=== PATIENT | female | born 1960 | race Caucasian/White ===

== ENCOUNTER 2022-01-26 20:23 | Emergency (ER) | payer OTHER, BC, SELFPAY ==
[2022-01-26 20:28] VITALS: PULSE 95; RESP 18; TEMP 36.7; O2SAT 98; BMI 36.6
[2022-01-26 20:54] LABS: Appearance Urine Clear (Clear); Bilirubin Urine Negative (Negative); Blood Urine Trace-intact (Negative); Color Urine Yellow (Yellow); Glucose Urine Negative (Negative); Ketones Urine Trace (Negative); Leukocyte Esterase Urine Trace (Negative); Nitrite Urine Negative (Negative); Protein Urine 1+ (Negative)
--- NOTE | 2022-01-26 20:57 | ED_ITS ---
HPI - General Adult General Chief complaint: Weakness Stated complaint: Feeling ill post root canals - possible infection Time Seen by Provider: 01/26/22 20:28 History of Present Illness HPI narrative: Pt is a 61 year old woman who recently had a root canal. Since that time, she has had progressive pain in the right maxillary sinus. Pain and mild swelling have been worsening over the past few days. Pain is dull but severe. No fever or chills. Pt has had no chest pain or shortness of breath. No nausea or vomiting. She is eating and drinking well. The dental pain persists but may be worsening. Related Data Home Medications Medication Instructions Recorded Confirmed albuterol 90 mcg/actuation aerosol mcg inhalation 01/26/22 inhaler amlodipine 10 mg tablet 10 mg PO DAILY 01/26/22 01/26/22 aspirin 81 mg tablet,delayed 81 mg PO DAILY 01/26/22 01/26/22 release (Adult Low Dose Aspirin) beclomethasone dipropionate 80 1 inh inhalation BID 01/26/22 01/26/22 mcg/actuation HFA breath activated aerosol (Qvar RediHaler) citalopram 20 mg tablet (Celexa) 10 mg PO DAILY 01/26/22 01/26/22 lisinopril 20 mg tablet 10 mg PO DAILY 01/26/22 01/26/22 omeprazole 20 mg capsule,delayed 20 mg PO BID 01/26/22 01/26/22 release Allergies Allergy/AdvReac Type Severity Reaction Status Date / Time No Known Drug Allergies Allergy Verified 01/26/22 20:36 Review of Systems Status of ROS: Reports: 10 or more systems reviewed and unremarkable except as noted in History and below [facility] Social History Smoking Status: Former smoker How often do you have a drink containing alcohol: 4 or more times a week How many standard drinks containing alcohol do you have on a typical day: 5 or 6 How often do you have six or more drinks on one occasion: Weekly AUDIT-C Alcohol total score: 9 Non-prescribed substance use: denies use Exam Narrative: Exam Narrative: EXAM GENERAL: Patient appears comfortable and well. EYES: No scleral icterus. ENT: Tympanic membranes and oropharynx normal. Tenderness and mild swelling noted of the right maxillary sinus. THYROID: no thyroid nodules or thyromegaly. LYMPH: No supraclavicular or cervical lymphadenopathy. SKIN: Visible skin seen during exam normal or with benign process only. EXT: No dependent lower extremity pedal edema. HEART: Regular rate and rhythm with no murmurs, rubs, or gallops. LUNGS: Clear to auscultation bilaterally with no crackles or wheezes. ABD: Soft, non tender, non distended. PSYCH: Good eye contact, speech is not pressured. Const: Vital Signs, click to edit/add: Vital Signs - 24 hr 01/26/22 20:28 Temperature 98.0 F Pulse Rate [Right Pulse Oximeter] 95 Respiratory Rate 18 Pulse Oximetry 98 Oxygen Delivery Me thod Room Air Course Course Hospital Course: Pt seen and examined. Vital Signs Vital signs: Initial Vital Signs Temperature 98.0 F 01/26/22 20:28 Temperature Source Oral 01/26/22 20:28 Pulse Rate 95 01/26/22 20:28 Respiratory Rate 18 01/26/22 20:28 Pulse Oximetry 98 01/26/22 20:28 Oxygen Delivery Method 01/26/22 20:28 Vital Signs Temperature 98.0 F 01/26/22 20:28 Pulse Rate 95 01/26/22 20:28 Respiratory Rate 18 01/26/22 20:28 Pulse Oximetry 98 01/26/22 20:28 Oxygen Delivery Method 01/26/22 20:28 Temperature 98.0 F 01/26/22 20:28 Pulse Rate 95 01/26/22 20:28 Respiratory Rate 18 01/26/22 20:28 Pulse Oximetry 98 01/26/22 20:28 Oxygen Delivery Method 01/26/22 20:28 Medical Decision Making [facility] Narrative Medical decision making narrative: Pt presents with right maxillary pain after dental procedure. She has a normal exam, no other significant symptoms and normal vital signs. Pt will be treated with a Z pack and will follow up with PCP prn Differential Diagnosis Differential Diagnosis: Dental infection, Cellulitis, Pharyngitis, Sinusitis Discharge Plan Discharge Clinical Impression: Acute maxillary sinusitis Patient Disposition: Home, Self-Care Condition: Stable Instructions: Sinusitis (ED) Additional Instructions: Z pack as directed Activity Level: No Restrictions Discharge Diet: Regular Stand Alone Forms: [facility] Info Instructions
--- OUTSIDE RECORDS SUMMARY | 2022-01-26 21:08 | XMS_ITS | Clinical Summary ---
:1960 Author Organization [facility] [place] [address] Care Team Providers Name Role Phone Mai Tiwari Primary Care Provider [phone] Robyn Waller RN Unavailable Allergies No known active allergies Medications Medication Sig Dispensed Refills Start Date End Date Status aspirin enteric Take 1 0 09/30/2009 Act indira coated 81 mg tablet by tabletIndications: mouth once Hypertension daily with a meal. multivitamin (MVI) Take 1 0 09/30/2009 Active tablet tablet by mouth once daily. lisinopriL Take 1 180 Tablet 3 09/09/2021 Active (PRINIVIL; ZESTRIL) Tablet (20 20 mg mg) by mouth tabletIndications: 2 times Essential daily. hypertension, benign EPINEPHrine Inhale 1-2 0 09/09/2021 Active (Primatene Mist) Puffs by 0.125 mg/actuation mouth. HFAAIndications: Mild persistent asthma without complication beclomethasone Inhale 1 1 Each 4 09/09/2021 Acti ve dipropionate (Qvar Puff by RediHaler) 80 mouth 2 mcg/actuation HFAb times daily. HFA Doesn't need inhalerIndications: a spacer or Moderate persistent shaking. asthma with acute exacerbation amLODIPine (NORVASC) Take 1 90 Tablet 3 09/09/2021 Active 10 mg Tablet (10 tabletIndications: mg) by mouth Hypertension once daily. citalopram (CELEXA) Take 1 90 Tablet 3 09/09/2021 Active 20 mg Tablet (20 tabletIndications: mg) by mouth Anxiety once daily. omeprazole Take 1 180 capsule. 3 09/09/2021 Activ e (PRILOSEC) 20 mg Capsule (20 Delayed-Release mg) by mouth capsuleIndications: once daily Dysphagia, before a unspecified type meal. albuterol HFA INHALE 2 18 g 2 12/30/2021 Activ e (PRO-AIR; VENTOLIN; PUFFS BY PROVENTIL) 90 MOUTH EVERY mcg/actuation 6 HOURS inhalerIndications: NEEDED Moderate persistent asthma with acute exacerbation gabapentin Take 300 mg 0 01/06/2022 Active (NEURONTIN) 300 mg by mouth. 3 capsule letrozole (FEMARA) Take 2.5 mg 0 01/06/2022 01/07/20 2 Active 2.5 mg tablet by mouth. [address] 1 Drop 5 mL 0 01/14/2022 Active 1% ophthalmic into right (ECONOPRED PLUS, eye four PRED FORTE, times daily. OMNIPRED) suspensionIndication s: Uveitis cyclopentolate Place 1 Drop 0.1 mL 0 01/14/2022 A ctive (CyclogyL) 1 % into right ophthalmic eye two solutionIndications: times daily. Uveitis moxifloxacin INSTILL 1 3 mL 0 01/22/2022 Active (VIGAMOX) 0.5 % DROP IN ophthalmic RIGHT EYE solutionIndications: FOUR TIMES Cornea abrasion, DAILY FOR 7 right, initial DAYS encounter Ventolin HFA 90 INHALE 2 18 g 2 09/13/2021 Dis continued mcg/actuation PUFFS BY 2 inhalerIndications: MOUTH EVERY Moderate persistent 6 HOURS asthma with acute NEEDED exacerbation moxifloxacin Place 1 Drop 2.8 mL 0 01/15/2022 Dis continued (Vigamox) 0.5 % into right 2 ophthalmic eye four solutionIndications: times daily Cornea abrasion, for 7 days. right, initial encounter Active Problems Problem Noted Date Invasive ductal carcinoma of breast 08/15/2020 Overview: x 2 sites in the left breast Mild persistent asthma without complication 10/07/2015 Dysphagia, unspecified(787.20) 01/10/2014 Essential hypertension, benign 12/09/2011 Resolved Problems Problem Noted Date Resolved Date Unspecified asthma(493.90) 12/09/2011 10/07/2015 Encounters Date Type Specialty Care Team Description 01/21/2022 Refill James Brooks, OD Refi ll Request (Moxifloxacin) 01/21/2022 Telephone James Brooks, OD Medi cation Management 01/21/2022 Refill James Brooks, OD Refi ll Request (moxifloxacin ( Vigamox) 0.5 % ophthalmic so lution) 01/15/2022 Office Visit James Brooks, OD Eye Problem (Possible Uveitis OD) 01/14/2022 Office Visit Motley, Dale Storm, Eye Problem (Right eye red DO and a little sw ollen, watery and itch y, painful, blurry. Started Tuesday night.) 01/14/2022 Travel 12/29/2021 Refill Mai Tiwari, Refil l Request (Albuterol PA Hfa) from Last 3 Months Immunizations Name Administration Dates Next Due COVID-19 vaccine ([employer] 30mcg/0.3mL) PF, 1, 05/09/2020 MDV Td (Age >=7 Years) 07/27/1999 Td, Preservative Free (age >= 7 Years) 09/28/2018 Tdap 12/04/2008, 12/05/2007 Family History Medical History Relation Name Comments Hypertension Mother Cancer-breast No Family History Cancer-colon No Family History Cancer-ovarian No Family History Cancer-prostate No Family History Relation Name Status Comments Brother 1 Alive Brother 2 Alive Daughter Alive healthy Father (Age 63) Brain Tumor Mother Alive HTN Sister 1 Alive healthy. Sister 2 Alive Sister 3 Alive Social History Tobacco Use Types Packs/Day Years Used Date Former Smoker Cigarettes 1 10 04/04/1973 - 0 04/04/1988 Smokeless Tobacco: Never Used Tobacco Cessation: Counseling Given: Yes Comments: started age 12. Most was PPD Alcohol Use Standard Drinks/Week Comments Yes 14 (1 standard drink = 0.6 oz pure alcoh ol) Alcohol Habits Answer Date Recorded How often do you have a drink containing 4 or more times a w ramona 06/07/2019 alcohol? How many drinks containing alcohol do you have 1 or 2 06/07/2019 on a typical day when you are drinking? How often do you have six or more drinks on one Weekly 06/07/2019 occasion? Comment: Not asked Sex Assigned at Date Recorded Not on file COVID-19 Exposure Response Date Recorded In the last 10 days, have you been in contact with No / Unsu re 01/14/2022 2:55 PM CDT someone who was confirmed or suspected to have Coronavirus/COVID-19? 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 Respiratory Rate 14 09/08/2020 9:12 AM CDT Oxygen Saturation 97% 09/08/2020 9:12 AM CDT Inhaled Oxygen Concentration - - Weight 91.1 kg (200 lb 14.4 oz) 01/14/2022 3:06 PM CDT Height 157.5 cm (5' 2) 09/09/2021 2:13 PM CDT Body Mass Index 36.75 09/09/2021 2:13 PM CDT Plan of Treatment Health Maintenance Due Date Last Done Comments Pneumococcal series for age 19-64 1964 (1 - PCV) Zoster (shingles) series for age 0306/30/1977 50+ (1 of 2) COVID-19 vaccine series (3 - 06/27/2020 05/30/2020, 021 Pfizer risk series) Colonoscopy through age 75 05/26/2021 05/26/2011, 2, 01/09/2010 (Declined) Influenza for age 50-64 12/03/2021 Mammogram for age 45-75 08/03/2022 08/03/2021 (Verified in Care Everywhere or Patient Record), 08/14/2020, 07/31/2020, Additional history exists BMI (ht and wt on same day) for 09/09/2022 09/09/2021, 0610/2020, age 18+ 08/20/2020, Additional history exists Depression screening for age 12+ 09/09/2022 09/09/2021, 11/2021, 07/24/2020, Additional history exists Lipids for age 45-75 09/09/2026 09/09/2021, 07/24/2020, 09/28/2018, Additional history exists Tetanus booster 09/28/2028 09/28/2018, 12/04/2008, 12/05/2007, Additional history exists Tdap Completed 12/04/2008, 12/05/2007 Hepatitis C screening for age Completed 01/22/2014 18-79 Results Not on filefrom Last 3 Months Insurance Payer Benefit Plan / Subscriber ID Effective Dates Phone Addre ss Type Group MULTI PLAN MULTI PLAN [id number] 2020-Prese [phone] [address] [address] [address] [place] [address] BLUE CROSS BLUE ADVANTAGE [id number] 2020-Presen [address] [address] [place] [facility] [address] UCARE UCARE CHOICES [id number] Effective for [address] [place] [address] [address] 57 [address] (Home) [id number] [phone] [address]NA [place] ([place]) [place] [address] Care Teams Strawhat Blocking Operator Relationship Specialty Start Date End Date Mai Tiwari PA PCP - General 09/30/09 [address] [place] [address] Robyn Waller, RN Nurse Navigator Registered Nurse 08/19/20
--- OUTSIDE RECORDS SUMMARY | 2022-01-26 21:09 | XMS_ITS | Encounter Summary ---
:1960 Author Organization [facility] Address [address] [place] [address] Care Team Providers Name Role Phone Mai Tiwari PA-C Primary Care Provider Reason for Visit Reason Comments BODY ACHES Appt. Needed Encounter Details Date Type Department Care Team Description 11/06/2021 Nurse Triage [facility] Cancer HERMINIO Rashid DY ACHES; Appt. Care at [facility] ZECHARIAH Cotton i Needed [place] [facility] [address] [facility] [address] [place], [place] [id number] [place] [address] [phone] Social History Tobacco Use Types Packs/Day Years Used Date Smoking Tobacco: Former Cigarettes 1 1973 - 1988 Smokeless Tobacco: Never Alcohol Use Standard Drinks/Week Comments Yes 14 (1 standard drink = 0.6 oz pure alcoh ol) 8-14 drinks/week Sex Assigned at Date Recorded Not on file documented as of this encounter Nursing Notes Deisy Fox RN - 11/06/2021 5:07 PM CDT [place] scheduling team, please contact Ayana to assist in scheduling a f/u for an ACP or visit with Dr. Askew the first week of December. Ayana agreed to the 3 week trial off Arimidex. Explained to her about staying on the Lisinopril until if/when that prescriber advises. She agreed to the plan. Tori Arce APRN, CNP - 11/06/2021 4:48 PM CDT Please instruct her to stop Arimidex and see APC (Blanca or Ivett) in [place] in 3 weeks for follow-up to assess whether symptoms are improved off of Arimidex. Lisinopril is not a new medication so less likely the cause of her cough; however, I recommend she call PCP regarding that symptom. Thanks- Deisy Fox RN - 11/06/2021 4:37 PM CDT Patient under the care of Dr. Askew for dx breast cancer. Arimidex started October 01, 2021 Ayana called this afternoon to report a gradual but persistent all over aching of her body muscles and some of her joints. She mentioned her knee's as being specifically bothersome. Also, she noted a persistent dry cough. She happens to also be on Lisinopril for blood pressure control. Dr. Askew is out of clinic at this time. Ayana is not scheduled for follow up until early January (9 weeks from now). Office call, will you please advise? Thank you. documented in this encounter Plan of Treatment Upcoming Encounters Date Type Specialty Care Team Description 02/11/2022 Phone Visit Oncology Radha Rashid MBBS [address] [facility], [place] [id number] (Wo rk) 05/20/2022 Appointment Oncology Radha Rashid MBBS [address] [facility] [phone] (Wo rk) 05/20/2022 Appointment Chemo Therapy/Infusion Services documented as of this encounter Visit Diagnoses Not on filedocumented in this encounter Care Teams Interior Design Coordinator Relationship Specialty Start Date End Date Mai Tiwari PA-C PCP - General Physician Foundry Supervisor 09/23/20 [address] [place] [address] [place] [address] documented as of this encounter
--- OUTSIDE RECORDS SUMMARY | 2022-01-26 21:09 | XMS_ITS | Encounter Summary ---
:1960 Author Organization [facility] Address [address] [place] [address] Care Team Providers Name Role Phone Unavailable Primary Care Provider Unavailable Reason for Visit Auth/Cert Specialty Diagnoses / Procedures Referred By Contact Refer red To Contact Diagnoses Malignant neoplasm of overlapping sites of both breasts in female, estrogen receptor positive (HRC) Procedures left breast seed localized lumpectomy with sentinel lymph node biopsy Referral ID Status Reason Start Date Expiration Date Visits Requ ested Visits Authorized [id number] 1 1 Encounter Details Date Type Department Care Team Description 09/12/2020 Anesthesia Event Baptism Operating Syl Malloy MD [address] [place] [address] Room Vasu Brand MD [address] [place] [address] [facility]. [place], [place] [id number] Anesthesia Record Procedure Summary Procedure Name Responsible Anesthesia Start Anesthesia Stop Anesthesiologist Time Time left breast 2 seed Corrine Malloy MD 09/12/20 1150 09/12/20 1333 localized lumpectomy with sentinel lymph node biopsy (Left) Events Date Time Event Comment 09/12/2020 1127 1150 An Start 1150 Quick Note Anesthesia start time denotes sedation started by PROPELLER MECHANIC currently o n case; patient continuously monitored to O.R . By PROPELLER MECHANIC 1153 An Start Data 1158 MD/ Present 1201 An Induction 1203 An Intubation 1204 MD/DO Present 1248 MD/DO Present 1325 An Extubation Purposeful movem ent with spontaneous respirations and adequate air exchange. Suctioned and ETT removed. Transfe rred with oxygen to recovery. 1327 MD/DO Present 1328 an stop data 1333 Care Handoff Note I discussed wi th the receiving nurse and we: 1) Identified the p atient, contreras family member(s) or patient surrogat e 2) Identified the responsible practitioner 3) Reviewed the pertinent medical history 4) Discu ssed the surgical/procedure course 5) Reviewed intr a-op anesthesia management and issues during an esthesia 6) Set expectations for the post-procedu re period 7) Allowed opportunity for questions an d acknowledgement of understanding of report Electr onically signed by CLARENCE Boles RN, PROPELLER MECHANIC 1333 An Stop Care transferred . Name Total midazolam injection 2 mg/2 mL (VERSED) 2 mg fentaNYL injection (SUBLIMAZE) 250 mcg HYDROmorphone injection 1 mg/mL (DILAUDID) 0.5 mg lidocaine 1% PF injection (XYLOCAINE) 100 mg propofol 10 mg/mL IV (DIPRIVAN) 1,293.6 mg succinylcholine injection (QUELICIN) 100 mg rocuronium injection (ZEMURON) 40 mg ondansetron injection (ZOFRAN) 4 mg dexamethasone 4 mg/mL injection (DECADRON) 4 mg ceFAZolin (ANCEF) 1 g in dextrose 50 ml IVPB 1 g lactated ringers infusion 900 mL Agents Name O2 Air Sevoflurane () Identified Agent Name Blood No blood administrations on file. Lines, Drains, and Airways Type Details Placement Removal Peripheral IV Placement Date: 09/12/20 1012 by 09/12/20 1552 b y 09/12/20; Placement Nelida Saurez Taylor, Curtis J, Time: 1012; COLT RN Pre-existing: No; Inserted by?: RN; Size (Gauge): 20 G; Orientation: Anterior, Right; Site Prep: Chlorhexidine, Alcohol; Local Anesthetic: Lidocaine 1%; Insertion attempts: 1; Blood draw with insertion?: no; Patient Tolerance: Tolerated well; Removal Date: 09/12/20; Removal Time: 1552 ETT Placement Date: 09/12/20 1203 by 09/12/20 1325 b y 09/12/20; Placement Jc Wheeler Schoenb erger, Brian Time: 1203; Placed By: LAZARO SAMUELS F, LAZARO SAMUELS PROPELLER MECHANIC; Induction Type: Pre-O2, IV, Cricoid Pressure; Masking: Easy; ETT Type: ETT; Orientation: Left; Size (mm): 7.0; Depth Secured (cm): 21 cm; Cuffed: Cuffed; Intubation Method: Video laryngoscopy; Cormack_Lehane Glottic Grade: Grade 1; Glottic View: Cords Open, Cords Clear; Blade: Glidescope; Blade Size: 3; Insertion attempts: 1; Difficulty: Atraumatic; Adjunct Equipment: Stylet; Placement Verification: BBSE, Positive EtCO2, capnometry, auscultation; Teeth and Lips Unchanged: Unchanged; Removal Date: 09/12/20; Removal Time: 1325 Incision/Surgical Site 09/12/20; 1243; #1; 09/12/20 1243 by 09/02 04/24 1552 by No; Breast; Left; Mai Hansen, Renzo Bustos, 09/12/20; 1552 RN Incision/Surgical Site 09/12/20; 1243; #2; 09/12/20 1243 by 09/02 04/24 1552 by No; Axilla; Left; Mai Hansen, Renzo Bustos, 09/12/20; 1552 RN documented in this encounter Social History Tobacco Use Types Packs/Day Years Used Date Smoking Tobacco: Former Cigarettes 1 1973 - 1988 Alcohol Use Standard Drinks/Week Comments Yes 14 (1 standard drink = 0.6 oz pure alcoh ol) 8-14 drinks/week Sex Assigned at Date Recorded Not on file documented as of this encounter Miscellaneous Notes Anesthesia Postprocedure Evaluation - Corrine Malloy MD - 09/12/2020 2:19 PM CDT [facility] Anesthesia Post-op Note Patient: Ayana Donnelly Post-Op Diagnosis: Malignant neoplasm of overlapping sites of both breasts in female, estrogen receptor positive (hrc) Procedure Performed: Procedure(s): Left - left breast 2 seed localized lumpectomy with sentinel lymph node biopsy - Wound Class: 1 CLEAN Anesthesia Type: General Post-op vital signs: Vitals Value Taken Time BP 139/79 09/12/20 1417 Temp 36.5 ??C (97.7 ??F) 09/12/20 1417 Pulse 79 09/12/20 1418 Resp 18 09/12/20 1417 SpO2 92 % 09/12/20 1418 Vitals shown include unvalidated device data. Pain Score: Presence Of Pain: denies Preferred Pain Scale: word (verbal rating pain scale) Pain Rating (0-10): Rest: 0 Pain Rating (0-10): Activity: 0 Post-op assessment: No anesthesia complication. Patient location: PACU Airway Status: Patent Cardiovascular function: Satisfactory Hydration status: Satisfactory PONV: None Level of Consciousness: Awake Fully Participates Postop Assessment: Patient tolerated procedure well. Electronically signed by: Corrine aMlloy MD 09/12/2020 2:19 PM Anesthesia Preprocedure Evaluation - Vasu Brand MD - 09/12/2020 10:51 AM CDT [facility] Anesthesia Pre-op Evaluation Procedure: Procedure(s): Left - left breast seed localized lumpectomy with sentinel lymph node biopsy HPI: 60 y.o. old female with Malignant neoplasm of overlapping sites of both breasts in female, estrogen receptor positive (hrc) NPO Status: Last Fluid Intake Time: 0700 Last Fluid Intake Date: 09/12/20 Last Food Intake Date: 09/11/20 Last Food Intake Time: 1999 No Known Allergies Past Medical History: Diagnosis Date ??? Anxiety (HRC) ??? Asthma ??? Hypertension (HRC) ??? Malignant neoplasm of overlapping sites of breast in female, estrogen receptor positive (HRC) 08/20/2020 Patient Active Problem List Diagnosis ??? Malignant neoplasm of overlapping sites of breast in female, estrogen receptor positive (HRC) No past surgical history on file. Outpatient Medications as of 09/12/2020 Medication Sig ??? ALBUterol sulfate HFA 108 (90 Base) MCG/ACT inhaler Inhale 2 Puffs. ??? amLODIPine (NORVASC) 10 MG tablet ??? beclomethasone (QVAR REDIHALER) 80 MCG/ACT HFA inhaler Inhale 1 Puff. ??? citalopram (CELEXA) 20 MG tablet ??? EPINEPHrine (PRIMATENE MIST IN) ??? EPINEPHrine (PRIMATENE MIST) 0.125 MG/ACT AERO 1-2 Puffs as needed. Primotene mist inhaler OTC ??? lisinopril (ZESTRIL) 20 MG tablet Facility-Administered Medications as of 09/12/2020 Medication Dose Route Frequency ??? [COMPLETED] 0.9% sodium chloride bolus 100 mL 100 mL Intravenous Once ??? ceFAZolin (ANCEF) 1 g in dextrose 50 ml IVPB 1 g Intravenous Once ??? fentaNYL (SUBLIMAZE) injection 25-50 mcg 25-50 mcg Intravenous Q5MIN PRN ??? fentaNYL (SUBLIMAZE) injection 25-50 mcg 25-50 mcg Intravenous Q5MIN PRN ??? [COMPLETED] gadobutrol (GADAVIST) 1 MMOL/ML injection 9 mL 9 mL Intravenous Once ??? lactated ringers infusion 25 mL/hr Intravenous Continuous ??? [COMPLETED] lidocaine PF (XYLOCAINE) 1 % injection 0.1-0.3 mL 0.1-0.3 mL Intradermal Once And ??? lidocaine PF (XYLOCAINE) 1 % injection 0.1-0.3 mL 0.1-0.3 mL Intradermal PRN ??? midazolam (VERSED) injection 1-2 mg 1-2 mg Intravenous Q5MIN PRN ??? ondansetron (ZOFRAN) injection 4 mg 4 mg Intravenous Q4H PRN ??? [COMPLETED] sodium chloride 0.9% injection 20 mL 20 mL Intravenous Once Labs: No results found for: SODIUM, K, CHLORIDE, CO2, BUN, CREATININE, GLUCOSE No results found for: WBC, HGB, HCT, PLTS No results found for: INR Blood Bank: No results found for: ABO, ABSCR EKG: No results found for this or any previous visit. Physical Exam: BP (!) 142/75 Pulse 80 Temp (!) 36 ??C (96.8 ??F) (Temporal Artery) Resp 18 Wt 88 kg (194 lb) SpO2 95% BMI 36.66 kg/m?? Assessment/Plan: Review of Systems Patient has GERD. (oropharyngeal) GERD controlled with medication. Patient is not a current smoker. Patient is a former smoker. The patient reports alcohol use. Patient denies any recent URI. History of PONV: No. History of motion sickness: No. Patient denies any personal or family history of anesthesia complications (PONV). Exam Mental Status: Alert and oriented. Mallampati score: III (Three). Mouth opening: a bit small. Thyromental Distance: > 3 finger breadths and Normal Neck Extension: Full Neck Circumference > 40 cm?: No Current airway assessment:Possibly abnormal Cardiac Exam: Regular rate and rhythm. Respiratory Exam: Breath sounds clear to auscultation Assessment ASA Status: 2 . Plan Anesthesia type: General and ETT Induction: Maintenance: Postoperative pain management (PONV): Plan for postoperative opioid use PONV Risk Score Peds:0 PONV Risk Score Adult: 3 PONV Prophylaxis (planned): Ondansetron and Decadron Anesthetic plan, risks, benefits and alternatives discussed with: Patient. H&P Reviewed and Patient examined, no change observed IV access Antibiotics per surgery Electronically signed by: Vasu Brand MD 09/12/2020 10:51 AM documented in this encounter Plan of Treatment Upcoming Encounters Date Type Specialty Care Team Description 02/11/2022 Phone Visit Oncology Radha Rashid MBBS [address] [facility] [address] ([place]say marcano) 05/20/2022 Appointment Oncology Radha Rashid MBBS [address] [facility], [place] [address] (Lindsay marcano) 05/20/2022 Appointment Chemo Therapy/Infusion Services documented as of this encounter Visit Diagnoses Not on filedocumented in this encounter Administered Medications Inactive Administered Medications - up to 3 most recent administrations Medication Order MAR Action Action Date Dose Rate Site ceFAZolin (ANCEF) 1 g in dextrose Given 09/12/2020 12:15 PM CDT 1 g 50 ml IVPB 1 g, Intravenous, Administer over 30 Minutes, ONCE, On Tue09/12/20 at 0945, For 1 dose, Infuse within 60 minutes prior to incision. Re-dose 1 gram IV every 4 hours after initial dose until incision closed. Re-dose if more than 1.5L of blood loss. Pharmacy may adjust for renal insufficiency., Pre-op dexamethasone (DECADRON) injection Given 09/12/2020 12:01 PM CDT 4 mg Intravenous, Starting on Tue09/12/20 at 1201, Until Tue09/12/20 at 1333 fentaNYL (SUBLIMAZE) injection Given 09/12/2020 12:29 PM CDT 100 mcg Intravenous, Starting on Tue09/12/20 at 1201, Until Tue09/12/20 at 1333 Given 09/12/2020 12:10 PM CDT 50 mcg Given 09/12/2020 12:01 PM CDT 100 mcg HYDROmorphone (DILAUDID) injection Given 09/12/2020 12:45 PM CDT 0.5 mg Intravenous, Starting on Tue09/12/20 at 1245, Until Tue09/12/20 at 1333 lidocaine PF (XYLOCAINE) 1 % injection Given 09/12/2020 12:01 PM CDT 100 mg Intravenous, Starting on Tue09/12/20 at 1201 midazolam (VERSED) injection Given 09/12/2020 11:50 AM CDT 2 mg Intravenous, Starting on Tue09/12/20 at 1150, Until Tue09/12/20 at 1333 ondansetron (ZOFRAN) injection Given 09/12/2020 12:01 PM CDT 4 mg Intravenous, Starting on Tue09/12/20 at 1201, Until Tue09/12/20 at 1333 propofol (DIPRIVAN) 10 mg/mL Rate/Dose 09/12/2020 1:13 125 mcg/kg/mi n 66 mL/hr injection Change PM CDT Intravenous, Starting on Tue09/12/20 at 1201, Until Tue09/12/20 at 1333 Rate/Dose Change 09/12/2020 1:05 PM CDT 175 mcg/kg/min 92.4 mL/hr Started 09/12/2020 12:01 PM CDT 200 mcg/kg/min 105.6 mL/hr rocuronium (ZEMURON) injection Given 09/12/2020 12:10 PM CDT 40 mg Intravenous, Starting on Tue09/12/20 at 1210, Until Tue09/12/20 at 1333 succinylcholine (QUELICIN) injection Given 09/12/2020 12:01 PM CDT 100 mg Intravenous, Starting on Tue09/12/20 at 1201, Until Tue09/12/20 at 1333 documented in this encounter
--- OUTSIDE RECORDS SUMMARY | 2022-01-26 21:09 | XMS_ITS | Encounter Summary ---
:1960 Author Organization [facility] Address [address] [address] Care Team Providers Name Role Phone Mai Tiwari PA-C Primary Care Provider Reason for Visit Reason Comments Scheduling Question Encounter Details Date Type Department Care Team Description 04/09/2021 Telephone [facility] Cancer Naun Rashid heduling Question Care at Rachel Cal Culp i, ZECHARIAH Crandall Oncology [address] [place] [id number] [place], [place] [id number] [place] [address] [phone] (Wo rk) Social History Tobacco Use Types Packs/Day Years Used Date Smoking Tobacco: Former Cigarettes 1 1973 - 1988 Smokeless Tobacco: Never Alcohol Use Standard Drinks/Week Comments Yes 14 (1 standard drink = 0.6 oz pure alcoh ol) 8-14 drinks/week Sex Assigned at Date Recorded Not on file documented as of this encounter Nursing Notes Silvia Cali, RN - 04/09/2021 3:51 PM CST Pt last had a phone visit on 12/10/20. Pt followed for T1cN0 multifocal ER/OH+ HER-2 neg ductal cancer. Pt last had a mammo on 09/12/20. Per scheduling sheet from 12/10/20 pt was supposed to be scheduled for a bone density in 1-2 months and follow up with Dr. Askew in 3-4 months. Please call pt to schedule this. Dr. Askew she is wondering when you next want her to get a mammo. Please advise. Thanks!! UNDERWRITER documented in this encounter Plan of Treatment Upcoming Encounters Date Type Specialty Care Team Description 02/11/2022 Phone Visit Oncology Radha Rashid MBBS [address] [facility] [address] (Wo rk) 05/20/2022 Appointment Oncology Radha Rashid MBBS [address] [facility] [address] (Wo rk) 05/20/2022 Appointment Chemo Therapy/Infusion Services documented as of this encounter Visit Diagnoses Not on filedocumented in this encounter Care Teams Senior Manager Creative Services Relationship Specialty Start Date End Date Mai Tiwari PA-C PCP - General Physician Electric Shovel Operator 09/23/[address] [address] documented as of this encounter
--- OUTSIDE RECORDS SUMMARY | 2022-01-26 21:09 | XMS_ITS | Encounter Summary ---
:1960 Author Organization [facility] Address [address] [place] [address] Care Team Providers Name Role Phone Mai Tiwari PA-C Primary Care Provider Encounter Details Date Type Department Care Team Description 04/30/2021 Orders Only HIM DEPARTMENT Provider, Kelby hendrix MD Interface provid er interface provider, TAYLOR [address] Social History Tobacco Use Types Packs/Day Years Used Date Smoking Tobacco: Former Cigarettes 1 1973 - 1988 Smokeless Tobacco: Never Alcohol Use Standard Drinks/Week Comments Yes 14 (1 standard drink = 0.6 oz pure alcoh ol) 8-14 drinks/week Sex Assigned at Date Recorded Not on file documented as of this encounter Plan of Treatment Upcoming Encounters Date Type Specialty Care Team Description 02/11/2022 Phone Visit Oncology Radha Rashid MBBS [address] [facility] [address] (Wo rk) 05/20/2022 Appointment Oncology Radha Rashid MBBS [address] [facility], [place] [id number] (Wo rk) 05/20/2022 Appointment Chemo Therapy/Infusion Services documented as of this encounter Procedures Procedure Name Priority Date/Time Associated Diagnosis Comme nts GENETIC TESTING 04/30/2021 Results for this (SCANNED) procedure are i n the results section . documented in this encounter Results GENETIC TESTING (SCANNED) (04/30/2021) Narrative This result has an attachment that is no t available. Interface Provider MD DUMMY/OTHER/AR documented in this encounter Visit Diagnoses Not on filedocumented in this encounter Care Teams Supervising Nurse Relationship Specialty Start Date End Date Mai Tiwari PA-C PCP - General Physician Silver Solution Mixer 09/23/[address] [facility] [address] [place] [address] documented as of this encounter
--- OUTSIDE RECORDS SUMMARY | 2022-01-26 21:09 | XMS_ITS | Encounter Summary ---
:1960 Author Organization [facility] Address [address] [place] [id number] Care Team Providers Name Role Phone Mai Tiwrai PA-C Primary Care Provider Reason for Visit Auth/Cert Specialty Diagnoses / Procedures Referred By Contact Refer red To Contact Diagnoses Stage 1 breast cancer, ER+, left ([facility]) Procedures RE-EXCISION MARGINS BREAST LUMPECTOMY UNILATERAL Referral ID Status Reason Start Date Expiration Date Visits Requ ested Visits Authorized [id number] 1 1 Encounter Details Date Type Department Care Team Description 09/23/2020 Hospital Encounter [facility] Marcie Thorne , Stage 1 breast Room MD cancer, ER+, left [address] [facility] ([facility]) [facility] [id number] [phone] Social History Tobacco Use Types Packs/Day Years Used Date Smoking Tobacco: Former Cigarettes 1 1973 - 1988 Alcohol Use Standard Drinks/Week Comments Yes 14 (1 standard drink = 0.6 oz pure alcoh ol) 8-14 drinks/week Sex Assigned at Date Recorded Not on file documented as of this encounter Last Filed Vital Signs Vital Sign Reading Time Taken Comments Blood Pressure 126/72 09/23/2020 5:30 PM CDT Pulse 74 09/23/2020 5:45 PM CDT Temperature 36 ??C (96.8 ??F) 09/23/2020 4:50 PM CDT Respiratory Rate 14 09/23/2020 5:45 PM CDT Oxygen Saturation 94% 09/23/2020 5:45 PM CDT Inhaled Oxygen Concentration - - Weight 88 kg (194 lb) 09/23/2020 1:30 PM CDT Height 154.9 cm (5' 1) 09/23/2020 1:30 PM CDT Body Mass Index 36.66 09/23/2020 1:30 PM CDT documented in this encounter Discharge Instructions Discharge InstructionsMartina Grajeda RN - 09/23/2020 5:30 PM CDT Anesthesia Instructions for Discharge 1. When leaving the facility, you must be accompanied by a responsible adult. 2. You must have a responsible adult with you for at least 8 hours after surgery. 3. During the next 24 hours after surgery, we would like you to follow these instructions: a. Do not Drive. b. Do not drink alcoholic beverages. c. Be aware of dizziness-do not use power tools. d. Eat light today; liquids may be better tolerated. e. Discuss any problems you may have with your physician. documented in this encounter Medications at Time of Discharge Medication Sig Dispensed Refills Start Date End Date ALBUterol sulfate HFA 108 Inhale 2 Puffs. 0 07/24 (90 Base) MCG/ACT inhaler amLODIPine (NORVASC) 10 0 07/24/2020 MG tablet aspirin 81 MG chewable Chew and swallow 81 0 tablet mg by mouth daily. beclomethasone (QVAR Inhale 1 Puff. 0 07/24/2020 REDIHALER) 80 MCG/ACT HFA inhaler citalopram (CELEXA) 20 MG 0 07/24/2020 tablet EPINEPHrine (PRIMATENE 0 MIST IN) EPINEPHrine (PRIMATENE 1-2 Puffs as needed. 0 MIST) 0.125 MG/ACT AERO Primotene mist inhaler OTC lisinopril (ZESTRIL) 20 0 07/24/2020 MG tablet acetaminophen (TYLENOL) Take 2 Tablets by 0 09/1209/26/2020 500 MG tablet mouth every 6 hours as needed for up to 14 days. ibuprofen (MOTRIN) 200 MG Take 2 Tablets by 0 02/202109/26/2020 tablet mouth every 6 hours as needed for up to 14 days. documented as of this encounter Procedure Notes Alysha Lozada PA-C - 09/23/2020 4:59 PM CDT [facility] Brief Operative Progress Note Surgery Date: 09/23/2020 Surgeon(s) and Role: * Marcie Thorne MD - Primary * Alysha Lozada PA-C - Assisting Pre-op Diagnosis: * Stage 1 breast cancer, ER+, left ([facility]) [C50.912, Z17.0] Post-op Diagnosis: * Stage 1 breast cancer, ER+, left ([facility]) [C50.912, Z17.0] Procedure(s) (LRB): RE-EXCISION MARGINS BREAST LUMPECTOMY UNILATERAL (Left) EBL: 20 Specimens: ID Type Source Tests Collected by Time Destination 1 : Re-Excision anterior and medial margins. Double stitch Anterior Single stitch Medial Tissue Breast, left SURGICAL PATHOLOGY Marcie Thorne MD 09/23/2020 1610 Complications: none Findings: Healthy lumpectomy cavity with small seroma present Alysha Lozada PA-C Marcie Thorne MD - 09/23/2020 12:00 AM CDT NAME: [facility]: [id number] OPERATIVE REPORT DATE OF SURGERY: 09/23/2020 : 1960 SURGEON: MARCIE THORNE MD PREOPERATIVE DIAGNOSIS: Left breast cancer. POSTOPERATIVE DIAGNOSIS: Left breast cancer. PROCEDURE: Left breast re-excision lumpectomy margins. ART GILDER: Alysha Lozada PA-C. A qualified surgical services manager was not available to assist.ODESSA Lozada was needed to provide operative exposure, to assist in achieving hemostasis and to suture. ANESTHESIA: Local MAC. INDICATION FOR OPERATION: Patient is a 60-year-old woman who recently underwent left breast lumpectomy and sentinel lymph node biopsy. Patient had a positive margin anteriorly and a close margin medially. Re-excision of these margins was recommended. The patient desired the surgery and informed consent was obtained. OPERATIVE PROCEDURE: The patient was positioned supine with arms abducted and the left breast was sterilely prepped and draped. 1% lidocaine mixed with 0.25% Marcaine with epinephrine was used for local anesthesia. The healing incision in the lower outer breast was opened sharply. The lumpectomy cavity was entered and the seroma was aspirated out. Old suture material was removed. Using electrocautery, a 1 cm thick slice of additional breast tissue was excised from the anterior and medial aspect of the lumpectomy cavity. The specimen was freed and oriented for pathology. Specimen was sent to the lab. Hemostasis was assured. The wound was irrigated and dried. The wound was closed with interrupted 3-0 Vicryl in the deep dermis, running 4-0 Monocryl subcuticular stitch for skin. Steri-Strips and dressing were applied. The patient tolerated the procedure well. FINDINGS: Additional breast tissue from the anterior and medial lumpectomy margins was normal grossly, pathology is pending. MARCIE THORNE MD [facility]/S /[id number] documented in this encounter OR Notes H&P - Marcie Thorne MD - 09/23/2020 3:22 PM CDT H & P update No new changes to health since 09/09/20 H&P. Underwent recent lumpectomy and sentinel lymph node biopsy. Today ready to proceed with re-excision lumpectomy margins. documented in this encounter Plan of Treatment Upcoming Encounters Date Type Specialty Care Team Description 02/11/2022 Phone Visit Oncology Radha Rashid MBBS [address] [facility] [id number] (Wo rk) 05/20/2022 Appointment Oncology Radha Rashid MBBS [address] [facility] [place] [id number] (Wo rk) 05/20/2022 Appointment Chemo Therapy/Infusion Services documented as of this encounter Procedures Procedure Name Priority Date/Time Associated Comments Diagnosis SURGICAL PATHOLOGY Routine 09/23/2020 4:10 PM Stage 1 breast R esults for this CDT cancer, ER+, left procedure are in ([facility]) the results section. RE-EXCISION MARGINS 09/23/2020 3:21 PM Stage 1 breast BREAST LUMPECTOMY CDT cancer, ER+, left ([facility]) documented in this encounter Results Surgical Path (09/23/2020 4:10 PM CDT) Component Value Ref Test Analysis Performed At [facility] gist Range Method Time Signature Case Report Surgical Pathology ?Case: [id number] ? 09/26/2020 [facility] Authorizing Provider: ??Marcie Duarte MD ?Collected: ? 09/23/2020 1610 ? 1:50 PM LABO RATORY Ordering Location: ? [facility] ?? Received: ?09/23/2020 1704 ? CDT Pathologist: ? Rai Stafford MD ? Specimen: ?Breast, left, Re-Excision anterior and medial margins. Double stitch Anterior Single ? stitch Me dial ? FINAL A. 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 Elvi Thorne via telephone on 09/26/20. 1:50 PM Clinical Stage 1 breast 09/26/2020 [facility] Information cancer, ER+, left 1:50 PM LABORATORY ([facility]) CDT Microscopic Microscopic 09/26/2020 [facility] Description examination is 1:50 PM LABORATORY performed. CDT Gross A: 09/26/2020 [facility] Description The specimen is received in formalin and labeled with the patient's name and Breast, left, Re-Excision anterior and medial margins. Double stitch Anterior Single stitch Medial. The specimen consists o 1:50 PM LABORATORY f an 11 g, 4.6 x 4.3 x 1.4 c m roughly cup-shaped disrupted portion of fibrofatty tissue. There is a double suture that designates anterior and a single suture that designates medial. The anterior margin CDT is inked red and the medial margin is inked green. The opposite surface (not a margin) is inked black. The sutures are removed. The anterior aspect is disrupted. The specimen is serially sectioned beginning at the medial aspect. The cut surfaces consist of predominantly smiley-yellow lobulated fat and a min imal amount of soft focally dense white fibrous tissue. The old lumpectomy site is firm. However, no obvious tumor is appreciated grossly. [place] [employer] sections (approximately 50% the specimen is sampled and submitted in 7 cassettes. The specimen is placed in formalin at 4:12 PM, 09/23/2020 DV The remainder of the specime n is entirely submitted in cassettes 8-14 (cassettes 8 and 14 include perpendicular sections of each end) DV Embedded 09/26/2020 [facility] Images 1:50 PM LABORATORY CDT Specimen Anatomical Collection Method Collection Time Receive d Time (Source) Location / / Volume Laterality Tissue BREAST STRUCTURE / 09/23/2020 4:10 PM 5:04 Unknown CDT PM CDT Marcie Thorne MD LAB PATHOLOGY Performing Organization Address City/State/ZIP Code Phon e Number [facility] [address] [place] [address] documented in this encounter Visit Diagnoses Diagnosis Stage 1 breast cancer, ER+, left ([facility]) - Primary documented in this encounter Admitting Diagnoses Diagnosis Stage 1 breast cancer, ER+, left ([facility]) documented in this encounter Administered Medications Inactive Administered Medications - up to 3 most recent administrations Medication Order MAR Action Action Date Dose Rate Site bupivacaine-epinephrine Given 09/23/2020 4:19 PM 30 mL Left Breast Fold (SENSORCAINE) 0.25% CDT -1:138457 15 mL, lidocaine (XYLOCAINE) 1 % 15 mL 30 mL 1:1 injection ONCE PRN, Starting on Tue09/23/20 at 1619, Intra-op fentaNYL (SUBLIMAZE) injection 25-50 mcg 25-50 mcg, Intravenous, [id number], Other, Moderate to Severe Pain (pain score 5 and above) in the immediate postop period when faster on-s et, short acting agent is desired., Starting on Tue09/23/20 at 133 2, Until Tue09/23/20 at 2108, Administer every 5 minutes as needed, to a maximum cumulative dose of 250 mcg. For patients with a regional, spinal, or local anesth etic, may give for anticipated pain as the anesthetic wears off., PACU/Recovery fentaNYL (SUBLIMAZE) injection 25-50 mcg 25-50 mcg, Intravenous, [id number], Pain, Procedure, Starting on Tue09/23/20 at 1332, Until Tue09/23/20 at 2108, For 2 doses, As directed by anesthesiologist, Pre-op fentaNYL (SUBLIMAZE) injection 25-50 mcg 25-50 mcg, Intravenous, [id number], Pain, Procedure, Starting on Tue09/23/20 at 1411, Until Tue09/23/20 at 2108, For 2 doses, As directed by anesthesiologist, Pre-op fentaNYL (SUBLIMAZE) injection 25-50 mcg 25-50 mcg, Intravenous, [id number], Other, Moderate to Severe Pain (pain score 5 and above) in the immediate postop period when faster on-s et, short acting agent is desired., Starting on Tue09/23/20 at 141 1, Until Tue09/23/20 at 210, Administer every 5 minutes as needed, to a maximum cumulative dose of 250 mcg. For patients with a regional, spinal, or local anesth etic, may give for anticipated pain as the anesthetic wears off., PACU/Recovery hydrALAZINE (APRESOLINE) injection 5 mg 5 mg, Intravenous, Q10MIN PRN, Other, Hi gh Blood Pressure, MAX 4 doses, hold for HR <50, Starting on Tue09/23/20 at 1411, Un til Tue09/23/20 at 210, For 4 doses, Call Anesthesiologist before administration. Give as direct ed by Anesthesiologist., PACU/Recovery HYDROmorphone (DILAUDID) injection 0.2-0 .3 mg 0.2-0.3 mg, Intravenous, Q10MIN PRN, Pain, 0.2 mg IV f or Mild to Moderate pain (pain score 1-5), 0.3 mg IV for Moderate to Severe pain (pain score 6 and above) in the immediate postop period when longer acting agent is desired., Starting on Tue09/23/20 at 1411, Until Tue09/23/20 at 2108, Maximum cu mulative dose is 2 mg in PACU, call Anesthesiologist if additional dosage neede d. For patients with a regional, spinal, or local anesthetic, may give for an ticipated pain as the anesthetic wears off., PACU/Recovery lactated ringers infusion Rate/Dose Change 09/23/2020 4:49 PM CDT 600 mL/hr 25 mL/hr, Intravenous, CONTINUOUS, Starting on Tue09/23/20 at 1330, Administer on all preop surgery patients, ages 12 and older, unless specified differently in the Protocol for Preop Initiation of IV fluids Order Set., Pre-op Started 09/23/2020 1:47 PM CDT 25 mL/hr 25 mL/hr lidocaine PF (XYLOCAINE) 1 % injection Given 09/23/2020 1:47 PM CDT 0.3 mL 0.1-0.3 mL 0.1-0.3 mL, Intradermal, ONCE, On Tue09/23/20 at 1330, For 1 dose, Lidocaine to be used for IV starts unless patient refuses., Pre-op lidocaine PF (XYLOCAINE) 1 % injection 0 .1-0.3 mL 0.1-0.3 mL, Intradermal, PRN, Other, for additional IV starts, Starting on Tue09/23/20 at 1259, Pre-op meperidine (DEMEROL) injection 12.5 mg 12.5 mg, Intravenous, [id number], Shiverin g, Starting on Tue09/23/20 at 1332, Until Tue09/23/20 at 2108, For 2 doses, Maximu m cumulative dose is 25 mg. Do not give to patients receiving MAO inhibitors (e.g. phenelzine (NA RDIL), tranylcypromine (PARNATE), selegiline (ELDEPRYL))., PACU/Recovery midazolam (VERSED) injection 1-2 mg 1-2 mg, Intravenous, [id number], Sedation, Anxiety, Proc edure, Starting on Tue09/23/20 at 1332, Until Tue09/23/20 at 2108, As directe d by anesthesiologist MAX Dose 2mg, Pre-op midazolam (VERSED) injection 1-2 mg 1-2 mg, Intravenous, [id number], Sedation, Anxiety, Proc edure, Starting on Tue09/23/20 at 1411, Until Tue09/23/20 at 2108, As directe d by anesthesiologist MAX Dose 2mg, Pre-op naloxone (NARCAN) injection 0.08 mg 0.08 mg, Intravenous, PRN, Other, For respiratory rate less than 8/minute or patient difficult to arouse, Starting on Tue09/23/20 at 1332, Until Tue09/23/20 at 2108, May repeat every 3 minutes or until patient is r esponsive to physical stimulation and is able to take deep ting aths. Maximum cumulative dose is 0.4 mg (1 mL). Continue to observe; if no response after administering total dose of 0.4 mg notify anesthesiologist STAT., PACU/Recovery naloxone (NARCAN) injection 0.08 mg 0.08 mg, Intravenous, PRN, Other, For respiratory rate less than 8/minute or patient difficult to arouse, Starting on Tue09/23/20 at 1411, Until Tue09/23/20 at 2108, May repeat every 3 minutes or until patient is r esponsive to physical stimulation and is able to take deep ting aths. Maximum cumulative dose is 0.4 mg (1 mL). Continue to observe; if no response after administering total dose of 0.4 mg notify anesthesiologist STAT., PACU/Recovery naloxone (NARCAN) injection 0.4 mg 0.4 mg, Intravenous, ONCE PRN, Opioid Re versal, Starting on Tue09/23/20 at 1332, Until Tue09/23/20 at 2108, For 1 dose, F or imminent respiratory arrest. Notify MD if naloxone is given., PACU/Recovery naloxone (NARCAN) injection 0.4 mg 0.4 mg, Intravenous, ONCE PRN, Opioid Re versal, Starting on Tue09/23/20 at 1411, Until Tue09/23/20 at 2108, For 1 dose, F or imminent respiratory arrest. Notify MD if naloxone is given., PACU/Recovery ondansetron (ZOFRAN) injection 4 mg 4 mg, Intravenous, Q4H PRN, Nausea, Vomiting, Starting on Tue09/23/20 at 1332, Until Tue09/23/20 at 2108, If multiple medications are ordered for nausea or vomiting - administer in the following priority based on medications ordered, effectiveness and availability: ondanset etienne (ZOFRAN) > prochlorPERAZINE (COMPAZINE) > diphenhydrAMINE (BENADRYL) > hydrOXYzi ne HCl (VISTARIL)> ePHEDrine > scopolamine (TRANSDERM-SCOP)., PACU/Recovery ondansetron (ZOFRAN) injection 4 mg 4 mg, Intravenous, Q4H PRN, Nausea, Vomiting, Starting on Tue09/23/20 at 1411, Until Tue09/23/20 at 2108, If multiple medications are ordered for nausea or vomiting - administer in the following priority based on medications ordered, effectiveness and availability: ondanset etienne (ZOFRAN) > prochlorPERAZINE (COMPAZINE) > diphenhydrAMINE (BENADRYL) > hydrOXYzi ne HCl (VISTARIL)> ePHEDrine > scopolamine (TRANSDERM-SCOP)., PACU/Recovery documented in this encounter Active and Recently Administered Medications Times are shown in CDT. Scheduled Medication Order 09/21/2020 09/22/2020 09/23/2020 ceFAZolin (ANCEF) 1 g in dextrose 50 ml IVPB (COMPLETED) 1544 (Given - Provider: Thais Black APRN, LAZARO) 1 g, Intravenous, Administer over 30 Min utes, ONCE, On Tue09/23/20 at 1330, For 1 dose, Infuse within 60 minutes prior to incision. Re-dose 1 gram IV every 4 hours after initial dose until incision clos ed. Re-dose if more than 1.5L of blood l oss. Pharmacy may adjust for renal insufficiency., Pre-op lidocaine PF (XYLOCAINE) 1 % injection 0.1-0.3 mL (COMPLETED) 1347 (Given - Provider: Carli Gupta, COLT) 0.1-0.3 mL, Intradermal, ONCE, On Tue at 1330, For 1 dose, Lidocaine to be used for IV starts unless patient refuses., Pre-op Continuous Medication Order 09/21/2020 09/22/2020 09/23/2020 lactated ringers infusion 1347 ( Started - Provider: Carli Gupta, COLT)1649 (Rate/Dose Change - Provider: Thais Black APRN, LAZARO)1650 (Anesthesia Fluid - Provider: Thais Black APRN, LAZARO)1855 (Stopped - Provider: Martina Grajeda RN) 25 mL/hr, Intravenous, at 25 mL/hr, CONT INUOUS, Starting on Tue09/23/20 at 1330, Administer on all preop surgery patients, ages 12 and older, unless specified differently in the Protocol for Preop Initiation of IV fluids Order Set., Pre-op PRN Medication Order 09/21/2020 09/22/2020 09/23/2020 acetaminophen (TYLENOL) tablet 1,000 mg 1,000 mg, Oral, ONCE PRN, Other, Mild Pa in (pain score 1-4), Starting on Tue09/23/20 at 1729, For 1 dose, Give for mild pain or if patient prefers acetaminophen over other options for pain (all pain scores)., Post-op bupivacaine-epinephrine (SENSORCAINE) 0. 25% -1:216313 15 mL, lidocaine (XYLOCAINE) 1 % 15 mL 30 mL 1:1 injection 1619 (Given - Provider: Marcie Thorne MD) ONCE PRN, Starting on Tue09/23/20 at 1619, Intra-op fentaNYL (SUBLIMAZE) injection 25-50 mcg 25-50 mcg, Intravenous, [id number], Other, Moderate to Severe Pain (pain score 5 and above) in the immediate postop period when faster on-set, short acting agent is desired., Starting on Tue09/23/20 at 13 32, Administer every 5 minutes as needed , to a maximum cumulative dose of 250 mcg. For patients with a regional, spinal, or local anesthetic, may give for anticipated pain as the anesthetic wears off., PACU/Recovery fentaNYL (SUBLIMAZE) injection 25-50 mcg 25-50 mcg, Intravenous, [id number], Pain, Procedure, Starting on Tue09/23/20 at 1332, For 2 doses, As directed by anesthesiologist, Pre-op fentaNYL (SUBLIMAZE) injection 25-50 mcg 25-50 mcg, Intravenous, [id number], Pain, Procedure, Starting on Tue09/23/20 at 1411, For 2 doses, As directed by anesthesiologist, Pre-op fentaNYL (SUBLIMAZE) injection 25-50 mcg 25-50 mcg, Intravenous, [id number], Other, Moderate to Severe Pain (pain score 5 and above) in the immediate postop period when faster on-set, short acting agent is desired., Starting on Tue09/23/20 at 14 11, Administer every 5 minutes as needed , to a maximum cumulative dose of 250 mcg. For patients with a regional, spinal, or local anesthetic, may give for anticipated pain as the anesthetic wears off., PACU/Recovery hydrALAZINE (APRESOLINE) injection 5 mg 5 mg, Intravenous, Q10MIN PRN, Other, Hi gh Blood Pressure, MAX 4 doses, hold for HR <50, Starting on Tue09/23/20 at 1411, For 4 doses, Call Anesthesiologist before administration. Give as directed by Anesthesiologist., PACU/Recovery HYDROmorphone (DILAUDID) injection 0.2-0.3 mg 0.2-0.3 mg, Intravenous, Q10MIN PRN, Abi n, 0.2 mg IV for Mild to Moderate pain (pain score 1-5), 0.3 mg IV for Moderate to Severe pain (pain score 6 and above) in the immediate postop period when longer acting agent is desired., Starting on T 09/23/20 at 1411, Maximum cumulative dose is 2 mg in PACU, call Anesthesiologist if additional dosage needed. For patients with a regional, spinal, or local ane sthetic, may give for anticipated pain a s the anesthetic wears off., PACU/Recovery lidocaine PF (XYLOCAINE) 1 % injection 0.1-0.3 mL 0.1-0.3 mL, Intradermal, PRN, Other, for additional IV starts, Starting on Tue09/23/20 at 1259, Pre-op meperidine (DEMEROL) injection 12.5 mg 12.5 mg, Intravenous, [id number], Shiverin g, Starting on Tue09/23/20 at 1332, For 2 doses, Maximum cumulative dose is 25 mg. Do not give to patients receiving MAO inhibitors (e.g. phenelzine (NARDIL), tra nylcypromine (PARNATE), selegiline (ELDEPRYL))., PACU/Recovery midazolam (VERSED) injection 1-2 mg 1-2 mg, Intravenous, [id number], Sedation, Anxiety, Procedure, Starting on Tue09/23/20 at 1332, As directed by anesthesiologist MAX Dose 2mg, Pre-op midazolam (VERSED) injection 1-2 mg 1-2 mg, Intravenous, [id number], Sedation, Anxiety, Procedure, Starting on Tue09/23/20 at 1411, As directed by anesthesiologist MAX Dose 2mg, Pre-op naloxone (NARCAN) injection 0.08 mg 0.08 mg, Intravenous, PRN, Other, For re spiratory rate less than 8/minute or patient difficult to arouse, Starting on Tue09/23/20 at 1332, May repeat every 3 minutes or until patient is responsive to ph ysical stimulation and is able to take d eep breaths. Maximum cumulative dose is 0.4 mg (1 mL). Continue to observe; if no response after administering total dose of 0.4 mg notify anesthesiologist STAT., PACU/Recovery naloxone (NARCAN) injection 0.08 mg 0.08 mg, Intravenous, PRN, Other, For re spiratory rate less than 8/minute or patient difficult to arouse, Starting on Tue09/23/20 at 1411, May repeat every 3 minutes or until patient is responsive to ph ysical stimulation and is able to take d eep breaths. Maximum cumulative dose is 0.4 mg (1 mL). Continue to observe; if no response after administering total dose of 0.4 mg notify anesthesiologist STAT., PACU/Recovery naloxone (NARCAN) injection 0.4 mg 0.4 mg, Intravenous, ONCE PRN, Opioid Re versal, Starting on Tue09/23/20 at 1332, For 1 dose, For imminent respiratory arrest. Notify MD if naloxone is given., PACU/Recovery naloxone (NARCAN) injection 0.4 mg 0.4 mg, Intravenous, ONCE PRN, Opioid Re versal, Starting on Tue09/23/20 at 1411, For 1 dose, For imminent respiratory arrest. Notify MD if naloxone is given., PACU/Recovery ondansetron (ZOFRAN) injection 4 mg 4 mg, Intravenous, Q4H PRN, Nausea, Vomi ting, Starting on Tue09/23/20 at 1332, If multiple medications are ordered for nausea or vomiting - administer in the following priority based on medications orde red, effectiveness and availability: ond ansetron (ZOFRAN) > prochlorPERAZINE (COMPAZINE) > diphenhydrAMINE (BENADRYL) > hydrOXYzine HCl (VISTARIL)> ePHEDrine > scopolamine (TRANSDERM-SCOP)., PACU/Recovery ondansetron (ZOFRAN) injection 4 mg 4 mg, Intravenous, Q4H PRN, Nausea, Vomi ting, Starting on Tue09/23/20 at 1411, If multiple medications are ordered for nausea or vomiting - administer in the following priority based on medications orde red, effectiveness and availability: ond ansetron (ZOFRAN) > prochlorPERAZINE (COMPAZINE) > diphenhydrAMINE (BENADRYL) > hydrOXYzine HCl (VISTARIL)> ePHEDrine > scopolamine (TRANSDERM-SCOP)., PACU/Recovery documented in this encounter Care Teams Lamp Wirer Relationship Specialty Start Date End Date Mai Tiwari PA-C PCP - General Physician Core Maker Helper 09/23/[address] [address] documented as of this encounter
--- OUTSIDE RECORDS SUMMARY | 2022-01-26 21:09 | XMS_ITS ---
:1960 Author Organization [facility] Address [address] [place] [address] Care Team Providers Name Role Phone Mai Tiwari PA-C Primary Care Provider Active Problems Problem Noted Date Stage 1 breast cancer, ER+, left 09/16/2020 Overview: Added automatically from request for edilberto robert [id number] Malignant neoplasm of overlapping sites of breast in f emale, estrogen 08/20/2020 receptor positive Cancer Staging: Clinical stage from 2020: Stage IA (cT1c(2), cN0, cM0, G2, ER+, WV+, HER2-) - Signed by Marcie Ruiz MD on 09/02/2020 Pathologic stage from 06/04/2021: Stage IA (pT1c(2), pN0(sn), cM0, G2, ER+, WV+, HER2-, Oncotype DX score: 9) - Unsigned Current Oncology Plans ZOLEDRONIC ACID (180D)Plan Start Date:09/30/2021 Plan Provider:Radha Rashid MBBS Linked Problems Stage 1 breast cancer, ER+, left ([facility]) Treatment Medications Current Day (Day 1, Cycle 1 - Next Day (Day 1, Cycle 2 - Planned for 01/06/2022) Planned for 03/30) ALBUterol sulfate ALBUterol sulfate HFA inhaler ALBUterol sulfate HFA inhaler HFAalteplase (CATHFLO 2 Puffalteplase (CATHFLO 2 Puffaltepla se (CATHFLO ACTIVASE)calcium ACTIVASE) injection 2 ACTIVASE) injectio n 2 carbonate-vitamin D mgdiphenhydrAMINE (BENADRYL) mgdiphenhyd rAMINE (BENADRYL) (OS-MAK 500 with D) 500-5 injection 50 mgEPINEPHrine injecti on 50 mgEPINEPHrine MG-MCGdiphenhydrAMINE (EPIPEN) injection 0.3 (EPIPEN) inject ion 0.3 (BENADRYL)EPINEPHrine mgfamotidine (PEPCID) 20 mg in mgfamot idine (PEPCID) 20 mg in (EPIPEN)famotidine sodium chloride 0.9 % 50 mL sodium chlor katie 0.9 % 50 mL (PEPCID)famotidine IVPBheparin 10 units/mL IVPBheparin 10 u nits/mL (PEPCID) in sodium flushheparin 100 units/mL flushheparin 1 00 units/mL chloride 0.9% 50 mL flushmethylPREDNISolone sodium flushmeth ylPREDNISolone sodium IVPBheparinmethylPREDNISo succinate (SOLU-medrol) succinate (SOLU-medrol) lone sodium succinate injection 125 mgsodium injection 125 m gsodium (SOLU-medrol)sodium chloride 0.9% infusionsodium chloride 0. 9% infusionsodium chloride 0.9 %sodium chloride 0.9% injection 10-60 chloride 0.9% injection 10-60 chloride 0.9%zoledronic mLzoledronic acid 4 mg mLzoledronic acid 4 mg acid (ZOMETA) (ZOMETA) 100 ml IVPB (ZOMETA) 100 ml IVP B Past Plans No past plan information found. Radiation Treatments No radiation treatments are documented for this patient in [facility]. Treatments may have been administered in another system.
--- OUTSIDE RECORDS SUMMARY | 2022-01-26 21:09 | XMS_ITS | Encounter Summary ---
:1960 Author Organization [facility] Address [address] [place] [address] Care Team Providers Name Role Phone Mai Tiwari PA-C Primary Care Provider Reason for Referral Procedure/Equipment (Routine) - Incomplete Specialty Diagnoses / Procedures Referred By Contact Refer red To Contact Diagnoses Stage 1 breast cancer, ER+, left ([facility]) Radha Rashid Procedures MM Mammogram Screening Bilat W 3D Andre W ZECHARIAH Serrato [address] [place], [place] [address] Referral ID Status Reason Start Date Expiration Date Visits V isits Requested Authorized [id number] Incomplete 04/09/2021 07/09/2022 1 1 RN Encounter Details Date Type Department Care Team Description 04/09/2021 Notes/Orders [facility] Rachid age 1 breast Care at ZECHARIAH Zepeda i cancer, ER+, left [facility] [address] [facility] (HR) (Primary Dx) [address] [place] [address] [place], [place] [phone] Social History Tobacco Use Types Packs/Day Years [...] Phone Visit Oncology Radha Rashid MBBS [address] [facility] [place], Aruna N [address] (Wo rk) 05/20/2022 Appointment Oncology Radha Rashid MBBS [address] [facility], [place] N [address] (Wo rk) 05/20/2022 Appointment Chemo Therapy/Infusion Services Scheduled Orders Name Type Priority Associated Diagnoses Order S chedule MM Mammogram Screening Imaging New Routine Stage 1 breast can cer, Expected: 04/09/2021 Bilat W 3D Andre W CAD ER+, left ([facility]) (Ap proximate), Expires: 2022 documented as of this encounter Visit Diagnoses Diagnosis Stage 1 breast cancer, ER+, left ([facility]) - Primary documented in this encounter Care Teams Warehouse Order Selector Relationship Specialty Start Date End Date Mai Tiwari PA-C PCP - General Physician Hide Paster 09/23/[address] [place] [address] documented as of this encounter
--- OUTSIDE RECORDS SUMMARY | 2022-01-26 21:09 | XMS_ITS | Encounter Summary ---
:1960 Author Organization [facility] Address [address] [place] [address] Care Team Providers Name Role Phone Mai Tiwari PA-C Primary Care Provider Reason for Visit Procedure/Equipment (Routine) - Incomplete Specialty Diagnoses / Procedures Referred By Contact Refer red To Contact Diagnoses Stage 1 breast cancer, ER+, left ([facility]) Radha Rashid Procedures DXA Bone Density Spine/Hip Inc ZENTICKETt FX Assess DXA Bone Density Spine/Hip ZECHARIAH Strange [address] [place], [place] [address] Referral ID Status Reason Start Date Expiration Date Visits V isits Requested Authorized [id number] Incomplete 12/10/2020 03/11/2022 1 1 Encounter Details Date Type Department Care Team Description 08/10/2021 Ancillary [place] [facility] Harrison Askew Stage 1 breast Procedure Density ZECHARIAH Ricardo cancer, ER+, left [address] ([facility]) [place] [address] [id number] Social History Tobacco Use Types Packs/Day Years [...] 02/11/2022 Phone Visit Oncology Radha Rashid MBBS [address] N [phone] (Wo rk) 05/20/2022 Appointment Oncology Radha Rashid MBBS [address] N [phone] (Wo rk) 05/20/2022 Appointment Chemo Therapy/Infusion Services documented as of this encounter Procedures Procedure Name Priority Date/Time Associated Diagnosis Comme nts DXA BONE DENSITY Routine 08/10/2021 2:06 PM Stage 1 breast Res ults for this SPINE/HIP INC VERT CDT cancer, ER+, left proc edure are in FX ASSESS ([facility]) the results section. documented in this encounter Results DXA Bone Density Spine/Hip Inc Vert FX Assess (08/10/2021 2:06 PM CDT) Anatomical Region Laterality Modality Spine, Hip Radiographic Imaging Specimen (Source) Anatomical Location Collection Method / Collectio n Time Received Time / Laterality Volume Narrative 08/10/2021 3:43 PM CDT CLINIC DXA REPORT Patient Name: ??Ayana Donnelly Densitometer: ??Hologic Horizon W ([id number]/N [id number]) SHARMA BONE OSTEOPOROSIS RISK FACTORS FROM PATIENT Q UESTIONNAIRE: ?? The patient is a 61 y.o.female: ??She wa s able to rise easily from a chair, calcium and vitamin-D intake appear adeq uate, no personal or first-degree relative with history of fragility fract ure, history of breast cancer, current aromatase inhibitor therapy. BONE MINERAL DENSITY: Lumbar Spine Vertebrae Included: L1;L2;L3;L4 Bone Mineral Density (gm/cm2): 0.807 T-Score: -2.2 Z-Score: -0.6 Total Hip Bone Mineral Density (gm/cm2): 0.832 (L) T-Score: -0.9 Z-Score: 0.2 Femoral Neck Bone Mineral Density (gm/cm2): 0.674 T-Score: -1.6 Z-Score: -0.2 FRAX 10 year probability major osteoporotic f racture: 13.4% 10 year probability hip fracture: 1.7% Fracture risk is based on bone density, age, ethnicity, and other BMD-independent risk factors noted from the questionnaire and the FRAX score, if available. ??See different fra cture risk categories below under definitions. VFA (Vertebral Fracture Assessment) (T5- L5): No vertebral deformities consistent with fracture were noted. ASSESSMENT: 1: ??Moderately low bone density (osteop enia) based on the lowest T-score at the lumbar spine 2: ??This is a baseline study at this cl inic (no comparison) 3: ??Fracture risk assessment: ??Mildly increased future fracture risk. RECOMMENDATIONS: 1: ??Recommend adequate calcium and yani min D intake 2: ??Consider repeat bone density in 2 y ears or as clinically indicated. Definitions (T-Score = Standard deviations above/bel ow mean peak adult) (Z-Score = Standard deviations above/bel ow mean age/sex-matched peers) ISCD Standards: ??For a more accurate fr acture risk assessment, reference data is used for all ethnic gr oups and the 1/3 region is reported for the forearm. WHO DEFINITIONS: Normal BMD: T-score ? -1.0 Osteopenia: T-score between -1.0 and -2. 5 Osteoporosis: T-score ? -2.5 FRAX Score : ??The FRAX?? algorithms giv e the 10-year probability of fracture. The output is a 10-year probab ility of hip fracture and the 10-year probability of a major osteoporo tic fracture (clinical spine, forearm, hip or shoulder fracture). ?? The FRAX score takes into account the sasha ne density, but also age, gender, weight, height, previous fracture, paren tono hip fracture, smoking status, glucocorticoid intake, history of RA, se condary osteoporosis, and high alcohol intake in determining fracture r isk in patients with osteopenia and osteoporosis. FRAX fracture risk estimates are adjuste d for Trabecular Bone Score (TBS) when available. Trabecular Bone Score (TBS) is a measure of the microarchitectural integrity of trabecular bone, and is bogdan ived from the eemxr-iz-rmatz changes of bone density embedded in the AP spine BMD image. TBS is only modestly correlated with BMD, and is mod estly associated with incident major osteoporotic and hip fractures ind ependent of BMD and other risk factors. FRAX and Fracture Risk Categories in ter ms of major osteoporotic fracture risk (clinical spine, forearm, hip, or s houlder): < 10% ?= ?low fracture risk ? 10% and <15% ?= ?mildly increased fracture risk ? 15% and <20% ?= ?moderately increased fracture risk ? 20% and <30% ?= ?high fracture risk ? 30% ?= ?very high fracture risk A clinician may consider FDA-approved me dical therapies in postmenopausal women and men aged 50 years and older, i f one or more of the following is present (clinical correlation required a nd therapy may not always be indicated): 1. ??The patient has a hip or vertebral (clinical or morphometric) fracture. 2. ??T-score ? -2.5 at the femoral neck, hip, or spine after appropriate evaluation to exclude secondary causes. 3. ??Low bone mass (T-score between -1.0 and -2.5 at the femoral neck, hip or spine) and a 10-year probability of a hip fracture ? 3% or a 10-year probability of a major osteoporosis-rela cameron fracture ? 20% based on the FRAX scores. 4. ??Clinicians judgment and/or patient preferences may result in a decision to patients with 10-year fractu re probabilities above or below these levels. Radha APPLE RAD DEXA documented in this encounter Visit Diagnoses Diagnosis Stage 1 breast cancer, ER+, left ([facility]) documented in this encounter Care Teams Blood Bank Technician Relationship Specialty Start Date End Date Mai Tiwari PA-C PCP - General Physician Machine Room Engineer 09/23/[address] [address] documented as of this encounter
--- OUTSIDE RECORDS SUMMARY | 2022-01-26 21:09 | XMS_ITS | Encounter Summary ---
:1960 Author Organization [facility] Address [address], [place] [address] Care Team Providers Name Role Phone Mai Tiwari PA-C Primary Care Provider Encounter Details Date Type Department Care Team Description 01/06/2022 Office Visit [facility] Harrison coulter, at [facility] ZECHARIAH [facility] [address] [place] [address] [place] [address] [phone] (Wo rk) Social History Tobacco Use Types [...] Phone Visit Oncology Radha Rashid MBBS [address] [facility] N [phone] (Wo rk) 05/20/2022 Appointment Oncology Radha Rashid MBBS [address] [facility] N [phone] (Wo rk) 05/20/2022 Appointment Chemo Therapy/Infusion Services documented as of this encounter Visit Diagnoses Not on filedocumented in this encounter Care Teams Wash Tub Machine Operator Relationship Specialty Start Date End Date Mai Tiwari PA-C PCP - General Physician Composition Professor 09/23/[address] [address] documented as of this encounter
--- OUTSIDE RECORDS SUMMARY | 2022-01-26 21:09 | XMS_ITS | Encounter Summary ---
:1960 Author Organization [facility] Address [address] [place] [address] Care Team Providers Name Role Phone Mai Tiwari PA-C Primary Care Provider Reason for Visit Reason Comments Infusion Infusion Therapy Plan (Routine) - Authorized Specialty Diagnoses / Procedures Referred By Contact Refer red To Contact Diagnoses Stage 1 breast cancer, ER+, left ([facility]) Radha Rashid [facility] ZECHARIAH Strange [address] [address] Referral ID Status Reason Start Date Expiration Date Visits V isits Requested Authorized [id number] Authorized 10/02/2021 10/01/[phone] Encounter Details Date Type Department Care Team Description 01/06/2022 Hospital Encounter [facility] Patel Rashid 1 breast Center ZECHARIAH Ricardo cancer, ER+, left [address] ([facility]) ( Primary Dx) [place] [address] Social History Tobacco Use Types Packs/Day Years Used Date Smoking Tobacco: Former Cigarettes 1 1973 - 1988 Smokeless Tobacco: Never Alcohol Use Standard Drinks/Week Comments Yes 14 (1 standard drink = 0.6 oz pure alcoh ol) 8-14 drinks/week Sex Assigned at Date Recorded Not on file documented as of this encounter Medications at Time of Discharge [...] MIST IN) EPINEPHrine (PRIMATENE 1-2 Puffs as 0 MIST) 0.125 MG/ACT AERO needed. Primotene mist inhaler OTC gabapentin (NEURONTIN) Take 1 Capsule (300 30 Capsule 1 08/202101/06/2023 300 MG capsule mg) by mouth every evening. letrozole (FEMARA) 2.5 MG Take 1 Tablet (2.5 60 Tablet 2 01/06/2023 tablet mg) by mouth daily. lisinopril (ZESTRIL) 20 0 07/24/2020 MG tablet multivitamin (THERAGRAN) Take 1 Tablet by 0 tablet mouth daily. documented as of this encounter Plan of Treatment Upcoming Encounters Date Type Specialty Care Team Description 02/11/2022 Phone Visit Oncology Radha Rashid MBBS [address] [facility] N [phone] (Wo jeet) 05/20/2022 Appointment Oncology Radha Rashid MBBS [address] [facility] N [phone] (Lindsay marcano) 05/20/2022 Appointment Chemo Therapy/Infusion Services documented as of this encounter Visit Diagnoses Diagnosis Stage 1 breast cancer, ER+, left ([facility]) - Primary documented in this encounter Care Teams Optometric Coordinator Relationship Specialty Start Date End Date Mai Tiwari PA-C PCP - General Physician Childrens Club Attendant 6/22/[address] [place] [address] [place] [address] documented as of this encounter
--- OUTSIDE RECORDS SUMMARY | 2022-01-26 21:09 | XMS_ITS | Encounter Summary ---
:1960 Author Organization [facility] Address [address] [place] [address] Care Team Providers Name Role Phone Mai Tiwari PA-C Primary Care Provider Reason for Visit Reason Comments CONSULT Consult/Transfer Care (Routine) - Closed Specialty Diagnoses / Procedures Referred By Contact Refer red To Contact Diagnoses Malignant neoplasm of overlapping sites of left breast in female, estrogen receptor positive ([facility]) Marcie Ruiz MD [address] [place], [place] [address] Referral ID Status Reason Start Date Expiration Date Visits Requ ested Visits Authorized [id number] Closed 09/03/2020 12/03/2021 1 1 Encounter Details Date Type Department Care Team Description 10/02/2020 Office Visit [facility] Gottlieban, age 1 breast Care at [facility] ZECHARIAH Cotton i cancer, ER+, left [facility] [address] [place] [address] ([facility]C) (Primary Dx) [address] [place] [address] [place], [place] [phone] Social History Tobacco Use Types Packs/Day Years Used Date Smoking Tobacco: Former Cigarettes 1 1973 - 1988 Alcohol Use Standard Drinks/Week Comments Yes 14 (1 standard drink = 0.6 oz pure alcoh ol) 8-14 drinks/week Sex Assigned at Date Recorded Not on file documented as of this encounter Last Filed Vital Signs Vital Sign Reading Time Taken Comments Blood Pressure 143/83 10/02/2020 11:40 AM CDT Pulse 88 10/02/2020 11:40 AM CDT Temperature - - Respiratory Rate - - Oxygen Saturation - - Inhaled Oxygen Concentration - - Weight 89.6 kg (197 lb 9.6 oz) 10/02/2020 11:40 AM CDT Height - - Body Mass Index 37.34 09/23/2020 1:30 PM CDT documented in this encounter Progress Notes Radha Rashid MBBS - 10/02/2020 12:00 AM CDT NAME: LINUS DONNELLY CSN: [id number] CLINIC NOTE DATE OF SERVICE: 10/02/2020 : 1960 Linus is a 60-year-old with past medical history significant for hypertension comes today for evaluation of newly diagnosed breast cancer. She underwent a routine screening mammogram without any palpable abnormalities, redness, and she wasnoted to have a 1.4 cm indistinct solid hypoechoic mass of the left breast at 3 o'clock, 7 cm from the nipple, and 0.6 cm irregular indistinct solid hypoechoic mass of the left breast at 3 o'clock 6 cmfrom the nipple. She underwent an ultrasound-guided biopsy which was consistent with 1.4 cm, grade 2, invasive ductal cancer without any angiolymphatic invasion, ER 99%, NE 79%, HER-2 negative. The 3 o'clock position, 6 cm from the nipple was also grade 2, invasive ductal cancer. Following that, she underwent an MRI of the breast, which was performed on 08/27/2020, and it was consistent with tumors me asuring 1.3 x 1.4 cm and another one 1.4 x 1 cm without any visualized adenopathy. Following that, she underwent surgery on 09/12/2020 with lumpectomy with 2 tumors, grade 2, 17 mm and 10 mm in size with DCIS and margin was positive in the anterior area and it was positive for invasive cancer and also for DCIS in the anterior margin. Medial margin was less than a millimeter with multifocal pT1c N0 disease. She underwent a repeat re-excision on 09/23 with ductal carcinoma in situ associated calcification, new margins negative, tumor less than a millimeter from the new medial margin and negative for invasive cancer. Overall, she has tolerated the procedure well and doing well without any symptoms. She denies having any nausea, vomiting, syncopal events, headache, dizziness or any other symptoms. Complete ROS is otherwise negative. PAST MEDICAL HISTORY: Hypertension PAST SURGICAL HISTORY: significant for hysterectomy with ovaries intact in her early 40s. SOCIAL HISTORY: A former smoker, a pack per day and quit in 1988. Alcohol, drinks beer on a regular basis. FAMILY HISTORY: Paternal grandfather and father with brain cancer and underwent surgery and radiation. Her sister on breast cancer watch, and the details are not clear. Her niece had ovarian cancer at age 28. EXAM: Blood pressure (!) 143/83, pulse 88, weight 197 lb 9.6 oz (89.6 kg). She is awake, alert, appears comfortable. Moderately built, well nourished. HEENT: Pupils equal, reactive to light. Oral mucous membranes moist. No lesions. LUNGS: Clear to auscultation. HEART: Rhythm regular. ABDOMEN: Soft, nontender, nondistended. No organomegaly. EXTREMITIES: No edema. BREAST: scar healing well, no palpable masses/lesions NEUROLOGIC: No gross motor or sensory deficits on neuro exam. ASSESSMENT/PLAN:Linus is a 60-year-old with past medical history significant for hypertension comes today for evaluation of newly diagnosed breast cancer. I discussed with Linus the nature and biology of her multifocal 1.4 and 1.7 cm lesion with ER/NE positive, HER-2 negative, node-negative disease. She underwent re-excision of the close margins which shows residual DCIS without any invasive cancer with a new margin less than 1 mm size. Considering the multifocal nature with grade 2 disease, we discussed arranging Oncotype DX to assess the risk for recurrence and benefit from chemotherapy. We also discussed pursuing adjuvant radiation to decrease the risk for local recurrence. We reviewed the side effects of hormone therapy with tamoxifen versus Arimidex and discussed the side effects in detail. I will call her once Oncotype results are available. All of Linus's questions were answered to her satisfaction today. ZECHARIAH OREILLY/MARLENE /[id number] documented in this encounter Plan of Treatment Upcoming Encounters Date Type Specialty Care Team Description 02/11/2022 Phone Visit Oncology Radha Rashid MBBS [address] [facility], N [address] (Wo rk) 05/20/2022 Appointment Oncology Radha Rashid MBBS [address] [facility], N [address] (Wo rk) 05/20/2022 Appointment Chemo Therapy/Infusion Services Scheduled Referrals Name Type Priority Associated Diagnoses Order S [facility] ONCOLOGY/HEMATOLOGY Referral Routine Malignant neoplasm of Ordered: 09/03/2020 CONSULT ADULT overlapping sites of left breast in female, estrogen receptor positive ([facility]) documented as of this encounter Visit Diagnoses Diagnosis Stage 1 breast cancer, ER+, left ([facility]) - Primary documented in this encounter Care Teams Lathe Machine Operator Relationship Specialty Start Date End Date Mai Tiwari PA-C PCP - General Physician Slab Depiler Operator 09/23/[address] [address] documented as of this encounter
--- OUTSIDE RECORDS SUMMARY | 2022-01-26 21:09 | XMS_ITS | Clinical Summary ---
:1960 Author Organization [facility] Address [address] [place] [address] Care Team Providers Name Role Phone Mai Tiwari PA-C Primary Care Provider Source Comments You are receiving this document as you are listed as the primary care provider,follow-up provider, or the patient has been referred to you for consultation.This is in compliance with the Medicare and Medicaid EHR Incentive Program,which states Providers who transition their patient to another setting of careor provider of care or refers their patient to another provider of care shouldprovide summarycare record for each transition of care or referral. [facility] Allergies No known active allergies Medications Medication Sig Dispensed Refills Start End Date Status Date amLODIPine 0 Active (NORVASC) 10 MG 1 tablet lisinopril 0 Active (ZESTRIL) 20 MG 1 tablet citalopram (CELEXA) 0 Active 20 MG tablet 1 beclomethasone Inhale 1 Puff. 0 Active (QVAR REDIHALER) 80 1 MCG/ACT HFA inhaler ALBUterol sulfate Inhale 2 0 Ac tive HFA 108 (90 Base) Puffs. 1 MCG/ACT inhaler aspirin 81 MG Chew and 0 Active chewable tablet swallow 81 mg by mouth daily. EPINEPHrine 0 Active (PRIMATENE MIST IN) EPINEPHrine 1-2 Puffs as 0 Activ e (PRIMATENE MIST) needed. 0.125 MG/ACT AERO Primotene mist inhaler OTC multivitamin Take 1 Tablet 0 Act indira (THERAGRAN) tablet by mouth daily. gabapentin Take 1 Capsule 30 Capsule 1 01/07/20 Act indira (NEURONTIN) 300 MG (300 mg) by 2 23 capsule mouth every evening. letrozole (FEMARA) Take 1 Tablet 60 Tablet 2 0 Active 2.5 MG tablet (2.5 mg) by 2 23 mouth daily. anastrozole Take 1 Tablet 30 Tablet 5 01/07/20 Disc ontinued (ARIMIDEX) 1 MG (1 mg) by 2 22 tablet mouth daily. letrozole (FEMARA) Take 1 Tablet 60 Tablet 0 0 Discontinued 2.5 MG tablet (2.5 mg) by 2 22 (*Me d change OR mouth daily. same me d OR reorder, n ew dose/direc tions) Active Problems Problem Noted Date Stage 1 breast cancer, ER+, left 09/16/2020 Overview: Added automatically from request for edilberto robert [id number] Malignant neoplasm of overlapping sites of breast in f emale, estrogen 08/20/2020 receptor positive Cancer Staging: Clinical stage from 2020: Stage IA (cT1c(2), cN0, cM0, G2, ER+, AL+, HER2-) - Signed by Marcie Ruiz MD on 09/02/2020 Pathologic stage from 06/04/2021: Stage IA (pT1c(2), pN0(sn), cM0, G2, ER+, AL+, HER2-, Oncotype DX score: 9) - Unsigned Encounters Date Type Specialty Care Team Description 01/06/2022 Hospital Encounter Chemo [facility] Askew, Stage 1 breast Therapy/Infusion Rdaha Strange, cancer, ER+ , left Services MBBS ([facility]C) (Primary Dx) 01/06/2022 Office Visit Oncology Radha Rashid, MBASIM 12/08/2021 Office Visit Oncology [facility], Stage 1 ting ast Radha Strange, cancer, ER+, le ft MBBS ([facility]C) (Primary Dx) 11/06/2021 Nurse Triage Oncology [facility] Askew, BODY ACHES; Appt. Radha Strange, Needed MBBS from Last 3 Months Family History Medical History Relation Name Comments Cancer, Brain Father Cancer, Breast Cousin Cancer, Ovary Niece Relation Name Status Comments Father Cousin Niece Alive Social History Tobacco Use Types Packs/Day Years Used Date Smoking Tobacco: Former Cigarettes 1 1973 - 1988 Smokeless Tobacco: Never Alcohol Use Standard Drinks/Week Comments Yes 14 (1 standard drink = 0.6 oz pure alcoh ol) 8-14 drinks/week Sex Assigned at Date Recorded Not on file Last Filed Vital Signs Vital Sign Reading Time Taken Comments Blood Pressure 153/75 10/01/2021 1:35 PM CDT Pulse 93 10/01/2021 1:35 PM CDT Temperature 36.6 ??C (97.8 ??F) 10/01/2021 1:35 PM CDT Respiratory Rate 14 09/23/2020 5:45 PM CDT Oxygen Saturation 94% 09/23/2020 5:45 PM CDT Inhaled Oxygen Concentration - - Weight 93 kg (205 lb) 10/01/2021 1:35 PM CDT Height 154.9 cm (5' 1) 09/23/2020 1:30 PM CDT Body Mass Index 38.73 09/23/2020 1:30 PM CDT Plan of Treatment Upcoming Encounters Date Type Specialty Care Team Description 02/11/2022 Phone Visit Oncology Radha Rashid MBBS [address] [facility] N [address] (Wo rk) 05/20/2022 Appointment Oncology Radha Rashid MBBS [address] [facility] N [address] (Wo rk) 05/20/2022 Appointment Chemo Therapy/Infusion Services Health Maintenance Due Date Last Done Comments Cervical Cancer Screening 1960 Due Colon Cancer Screening Plan 1960 Due Hep C Screening (Preventive 1960 Services) COVID-19 Vaccine (#1) 1960 HIV Screening (Preventive 1974 Services) Adult Preventive Visit 1976 Cholesterol 07/01/2003 Zoster/Shingles (1 of 2) 2008 Influenza (#1) 2021 Mammogram 08/03/2022 08/03/2021 Dexa 08/11/2023 08/10/2021 DTaP/Tdap/Td (4 - Tdap) 09/28/2028 09/28/2018, 12/04/2008, 12/05/2007, Additional history exists HepA Aged Out No longer eligib le based on patient 's age to complete this topic HepB Aged Out No longer eligib le based on patient 's age to complete this topic Hib Aged Out No longer eligib le based on patient 's age to complete this topic IPV (Polio) Aged Out No longer eligib le based on patient 's age to complete this topic MCV4 Aged Out No longer eligib le based on patient 's age to complete this topic Pneumococcal Aged Out No longer eligib le based on patient 's age to complete this topic Insurance Payer Benefit Plan / Subscriber ID Effective Phone Address T ype Group Dates BCBS BCBS PMAP BLUE [id number] 2021-Prese [address] [id number] [place] [address] MISC INS MISC COMMERCIAL [id number] 2020-Pres [phone] [id number] [place] [address] [address] (Home) [address] [place] [address] Advance Directives Latest Code Status on File Code Status Date Activated Date Inactivated Comments Full Code 09/23/2020 4:44 PM 09/23/2020 9:14 PM Full Code 09/12/2020 1:40 PM 09/12/2020 6:12 PM Care Teams Cuff Maker Relationship Specialty Start Date End Date Mai Tiwari PA-C PCP - General Physician Ceramic Engineer 09/23/[address] [place], [place] [address]
--- OUTSIDE RECORDS SUMMARY | 2022-01-26 21:09 | XMS_ITS | Encounter Summary ---
:1960 Author Organization [facility] Address [address], [place] [address] Care Team Providers Name Role Phone Mai Tiwari PA-C Primary Care Provider Reason for Visit Reason Comments CONSULT Encounter Details Date Type Department Care Team Description 12/22/2020 Initial Consult Alexandre Coffman MD [address] [place] [address] Preop cardiovascular exam (Primary Dx); [place] [address] Nurse, Cardiology II Bv At risk for cardiovascular event Cardiology [address] [place] [address] Social History Tobacco Use Types Packs/Day Years Used Date Smoking Tobacco: Former Cigarettes 1 1973 - 1988 Smokeless Tobacco: Never Alcohol Use Standard Drinks/Week Comments Yes 14 (1 standard drink = 0.6 oz pure alcoh ol) 8-14 drinks/week Sex Assigned at Date Recorded Not on file documented as of this encounter Last Filed Vital Signs Vital Sign Reading Time Taken Comments Blood Pressure 150/80 12/22/2020 10:55 AM CDT Pulse 95 12/22/2020 10:16 AM CDT Temperature - - Respiratory Rate - - Oxygen Saturation - - Inhaled Oxygen Concentration - - Weight 93.7 kg (206 lb 9.6 oz) 12/22/2020 10:16 AM CDT Height - - Body Mass Index 39.04 09/23/2020 1:30 PM CDT documented in this encounter Progress Notes Jose Segovia MD - 12/22/2020 10:15 AM CDT Images from the original note were not included. CARDIOLOGY NOTE LINUS DONNELLY : 1960 CSN: [id number] Date of Service: 12/22/2020 In-person consultation completed today. HPI Linus Donnelly is a 60 y.o. female who presents as a self-referral for discussion of cardiovascular risk. Presents with her niece Cuca. Pertinent history of recently diagnosed invasive ductal carcinoma of the left breast diagnosed August 2020 status post lumpectomy and radiation, essential hypertension, normal LDL, previous smoker having quit 1988, regular alcohol consumer about 2 beers per day, asthma, and elevated body mass index. No pr emature family history of coronary disease, mother is still alive. No diabetes. Does not check bloodpressure regularly at home. She was apparently told that she was high risk for her lumpectomy procedures, and that she should see a program analyst. The only complaint she really has today is fatigue and chronic lower extremity edema. Her fatigue started directly run the time of her procedures and radiation therapy. She has put on about 15 lb, and has been less active. 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 Since [facility], she has been less active. No history of exertional shortness of breath or chest pain. She has had lower extremity swelling for quite some time, and uses compression socks. Swelling is worse towards the end of the day. She is on her feet all day at a [employer] gas station. Swelling is better in the morning. She has no PND or orthopnea. Previously going for walks, but since treatment for breast cancer she has been much less active. No palpitations, presyncope or syncope. Thereis no plan for chemotherapy. Past Medical History Reviewed in electronic medical record. No changes. Current medications Outpatient Medications Prior to Visit Medication Sig Note Dispense Refill ??? ALBUterol sulfate HFA 108 (90 Base) MCG/ACT inhaler Inhale 2 Puffs. ??? amLODIPine (NORVASC) 10 MG tablet ??? anastrozole (ARIMIDEX) 1 MG tablet Take 1 Tablet by mouth daily. 30 Tablet 5 ??? aspirin 81 MG chewable tablet Chew and swallow 81 mg by mouth daily. ??? beclomethasone (QVAR REDIHALER) 80 MCG/ACT HFA inhaler Inhale 1 Puff. 09/23/2020: Has not used ??? citalopram (CELEXA) 20 MG tablet ??? EPINEPHrine (PRIMATENE MIST IN) ??? EPINEPHrine (PRIMATENE MIST) 0.125 MG/ACT AERO 1-2 Puffs as needed. Primotene mist inhaler OTC ??? lisinopril (ZESTRIL) 20 MG tablet ??? multivitamin (THERAGRAN) tablet Take 1 Tablet by mouth daily. No facility-administered medications prior to visit. Past Family/Social History Reviewed in electronic medical record. No changes; pertinent history outlined above. Physical Exam BP (!) 150/80 (BP Location: Left Arm, BP Cuff Size: Large) Pulse 95 Wt 206 lb 9.6 oz (27789 g) BMI 39.04 kg/m?? JVP normal Heart is regular without murmur No respiratory distress, clear lungs 1+ pitting lower extremity swelling below the knees, normal dorsalis pedis pulses bilaterally Pertinent Data Labs Reviewed ECG dated September 12, 2020 shows normal sinus rhythm Impression/Plan # ASCVD 10 year risk 4.5% # left-sided chest radiation # essential hypertension # venous insufficiency # fatigue While she is low risk, her left-sided chest radiation would be a risk factor not included in traditional risk assessment. There is some data that statins (possibly baby aspirin as well) can reduce vascular events in this population. We discussed using moderate intensity statin therapy up-front today or the option of a coronary calcium score for further risk stratification. She politely declines both and would prefer to be off medications as possible. I think this is reasonable. Was apparently told she was high risk for her breast operation; I do not think this is true. In terms of her lower extremity swelling and fatigue, she has no malignant symptoms or findings of heart failure. I advise conservative management for venous insufficiency to include elevating legs, increasing physical activity as tolerated, watching salt and water intake, home blood pressure diary, and continue use of compression socks (and considering a higher pressure sock). Could consider changing amlodipine to a diuretic (thiazide or chlorthalidone), pending her blood pressure diary and response to conservative measures. Follow-up: With cardiology as needed Thank you for involving me in the care of your patient. Please let me know if questions or concerns arise. Billing based on: Complexity and time spent on this encounter Number of minutes spent on this encounter: 45 minutes Carlos Segovia MD 12/22/2020, 10:57 AM Cardiology Department documented in this encounter Plan of Treatment Upcoming Encounters Date Type Specialty Care Team Description 02/11/2022 Phone Visit Oncology Radha Rashid MBBS [address] [facility] [place] [address] [address] (Wo rk) 05/20/2022 Appointment Oncology Radha Rashid MBBS [address] [facility] [place] N [address] (Wo rk) 05/20/2022 Appointment Chemo Therapy/Infusion Services documented as of this encounter Visit Diagnoses Diagnosis Preop cardiovascular exam - Primary Pre-operative cardiovascular examination At risk for cardiovascular event documented in this encounter Care Teams Bulb Assembler Relationship Specialty Start Date End Date Mai Tiwari PA-C PCP - General Physician Museum Informatics Specialist 09/23/[address] [place] [id number] documented as of this encounter
--- OUTSIDE RECORDS SUMMARY | 2022-01-26 21:09 | XMS_ITS | Encounter Summary ---
:1960 Author Organization [facility] [facility] Address [address] [address] Care Team Providers Name Role Phone Mai Tiwari PA-C Primary Care Provider Reason for Visit Auth/Cert Specialty Diagnoses / Procedures Referred By Contact Refer red To Contact Diagnoses Stage 1 breast cancer, ER+, left (HRC) Procedures RE-EXCISION MARGINS BREAST LUMPECTOMY UNILATERAL Referral ID Status Reason Start Date Expiration Date Visits Requ ested Visits Authorized [id number] 1 1 Encounter Details Date Type Department Care Team Description 09/23/2020 Surgery Spiritism Operating Milvia Thorne MD RE-EXCISION MARGINS Room [address] [facility] BREAST LUMPECTOMY [address] [facility]. [place], [place] [phone] Social History Tobacco Use Types Packs/Day Years Used Date Smoking Tobacco: Former Cigarettes 1 1973 - 1988 Alcohol Use Standard Drinks/Week Comments Yes 14 (1 standard drink = 0.6 oz pure alcoh ol) 8-14 drinks/week Sex Assigned at Date Recorded Not on file documented as of this encounter Last Filed Vital Signs Vital Sign Reading Time Taken Comments Blood Pressure 154/76 09/23/2020 1:30 PM CDT Pulse 78 09/23/2020 1:30 PM CDT Temperature 36.6 ??C (97.9 ??F) 09/23/2020 1:30 PM CDT Respiratory Rate 18 09/23/2020 1:30 PM CDT Oxygen Saturation 99% 09/23/2020 1:30 PM CDT Inhaled Oxygen Concentration - - [...] Lozada PA-C - 09/23/2020 4:59 PM CDT [facility] Brief Operative Progress Note Surgery Date: 09/23/2020 [...] 09/23/2020 12:00 AM CDT NAME: AYANA DONNELLY [facility]: [id number] OPERATIVE REPORT DATE OF SURGERY: 09/23/2020 : 1960 SURGEON: MARCIE THORNE MD PREOPERATIVE DIAGNOSIS: Left breast cancer. POSTOPERATIVE DIAGNOSIS: Left breast cancer. PROCEDURE: Left breast re-excision lumpectomy margins. NIGHT AUDITOR: Alysha Lozada PA-C. A qualified surgical first assistant was not available to assist.ODESSA Lozada was [...] grossly, pathology is pending. MARCIE THORNE MD [facility]/S /[id number] documented in this encounter OR Notes H&P [...] 02/11/2022 Phone Visit Oncology Radha Rashid MBBS [address] [facility] [address] (Wo rk) 05/20/2022 Appointment Oncology Radha Rashid MBBS [address] [facility] [place] [address] [address] (Wo rk) 05/20/2022 Appointment Chemo Therapy/Infusion Services [...] Component Value Ref Test Analysis Performed At [facility] gist Range Method Time Signature Case Report Surgical Pathology ?Case: [id number] ? 09/26/2020 [facility] Authorizing Provider: ??Marcie Duarte MD ?Collected: ? 09/23/2020 1610 ? 1:50 PM LABO RATORY Ordering Location: ? [facility] Operating Room ?? Received: ?09/23/2020 1704 ? CDT Pathologist: ? Rai Stafford MD ? Specimen: ?Breast, left, Re-Excision anterior and medial margins. Double stitch Anterior Single ? stitch Me dial ? FINAL A. Breast, left, re-excision anterior and medial margins: 09/26/2020 [facility] Electronically DIAGNOSIS Ductal carcinoma in situ wit [...] 1:50 PM Clinical Stage 1 breast 09/26/2020 [facility] Information cancer, ER+, left 1:50 PM LABORATORY (HRC) CDT Microscopic Microscopic 09/26/2020 [facility] Description examination is 1:50 PM LABORATORY performed. CDT Gross A: 09/26/2020 [facility] Description The specimen is received in formalin [...] However, no obvious tumor is appreciated grossly. Dairy Grazer sections (approximately 50% the specimen is sampled and submitted in 7 cassettes. The specimen is placed in formalin at 4:12 PM, 09/23/2020 DV The remainder of the specime n is entirely submitted in cassettes 8-14 (cassettes 8 and 14 include perpendicular sections of each end) DV Embedded 09/26/2020 [facility] Images 1:50 PM LABORATORY CDT Specimen Anatomical Collection Method Collection Time Receive d Time (Source) Location / / Volume Laterality Tissue BREAST STRUCTURE / 09/23/2020 4:10 PM 5:04 Unknown CDT PM CDT Marcie Thorne MD LAB PATHOLOGY Performing Organization Address City/State/ZIP Code Phon e Number [facility] [address] [place] [address] documented in this encounter Visit Diagnoses Diagnosis Stage 1 breast cancer, ER+, left ([facility]) - Primary Stage 1 breast cancer, ER+, left ([facility]) documented in this encounter Admitting Diagnoses Diagnosis Stage 1 breast cancer, ER+, left (HRC) documented in this encounter Administered Medications Inactive Administered Medications - up to 3 most recent administrations Medication Order MAR Action Action Date Dose Rate Site bupivacaine-epinephrine Given 09/23/2020 4:19 PM 30 mL Left Breast Fold (SENSORCAINE) 0.25% CDT -1:480205 15 mL, lidocaine (XYLOCAINE) 1 % 15 mL 30 mL 1:1 injection ONCE PRN, Starting on Tue09/23/20 at 1619, Intra-op fentaNYL (SUBLIMAZE) injection 25-50 mcg 25-50 mcg, Intravenous, [id number], Other, Moderate to Severe Pain (pain score [...] (SUBLIMAZE) injection 25-50 mcg 25-50 mcg, Intravenous, [id number], Pain, Procedure, Starting on Tue09/23/20 at 1332, Until Tue09/23/20 at 210, For 2 doses, As directed by anesthesiologist, Pre-op fentaNYL (SUBLIMAZE) injection 25-50 mcg 25-50 mcg, Intravenous, [id number], Pain, Procedure, Starting on Tue09/23/20 at 1411, Until Tue09/23/20 at 2109, For 2 doses, As directed by anesthesiologist, Pre-op fentaNYL (SUBLIMAZE) injection 25-50 mcg 25-50 mcg, Intravenous, [id number], Other, Moderate to Severe Pain (pain score 5 and above) in the immediate postop period when faster on-s et, short acting agent is desired., Starting on Tue09/23/20 at 141 1, Until Tue09/23/20 at 2108, Administer every 5 [...] Tue09/23/20 at 1411, Un til Tue09/23/20 at 2108, For 4 doses, Call Anesthesiologist before administration. [...] (DEMEROL) injection 12.5 mg 12.5 mg, Intravenous, [id number], Shiverin g, Starting on Tue09/23/20 at 1332, Until Tue09/23/20 at 2108, For 2 doses, Maximu m cumulative dose is 25 mg. Do not give to patients receiving MAO inhibitors (e.g. phenelzine (NA RDIL), tranylcypromine (PARNATE), selegiline (ELDEPRYL))., PACU/Recovery midazolam (VERSED) injection 1-2 mg 1-2 mg, Intravenous, [id number], Sedation, Anxiety, Proc edure, Starting on Tue09/23/20 at 1332, Until Tue09/23/20 at 210, As directe d by anesthesiologist MAX Dose 2mg, Pre-op midazolam (VERSED) injection 1-2 mg 1-2 mg, Intravenous, [id number], Sedation, Anxiety, Proc edure, Starting on Tue09/23/20 [...] on Tue09/23/20 at 1411, Until Tue09/23/20 at 2109, If multiple medications are ordered for nausea [...] mL (COMPLETED) 1347 (Given - Provider: Carli Gupta RN) 0.1-0.3 mL, Intradermal, ONCE, On Tue at 1330, For 1 dose, Lidocaine to be used for IV starts unless patient refuses., Pre-op Continuous Medication Order 09/21/2020 09/22/2020 09/23/2020 lactated ringers infusion 1347 ( Started - Provider: Carli Gupta RN)[phone] (Rate/Dose Change - Provider: Thais Black APRN, [...] pain scores)., Post-op bupivacaine-epinephrine (SENSORCAINE) 0. 25% -1:092094 15 mL, lidocaine (XYLOCAINE) 1 % 15 mL 30 mL 1:1 injection 1619 (Given - Provider: Marcie Thorne MD) ONCE PRN, Starting on Tue09/23/20 at 1619, Intra-op fentaNYL (SUBLIMAZE) injection 25-50 mcg 25-50 mcg, Intravenous, [id number], Other, Moderate to Severe Pain (pain score [...] (SUBLIMAZE) injection 25-50 mcg 25-50 mcg, Intravenous, [id number], Pain, Procedure, Starting on Tue09/23/20 at 1332, For 2 doses, As directed by anesthesiologist, Pre-op fentaNYL (SUBLIMAZE) injection 25-50 mcg 25-50 mcg, Intravenous, [id number], Pain, Procedure, Starting on Tue09/23/20 at 1411, For 2 doses, As directed by anesthesiologist, Pre-op fentaNYL (SUBLIMAZE) injection 25-50 mcg 25-50 mcg, Intravenous, [id number], Other, Moderate to Severe Pain (pain score [...] (DEMEROL) injection 12.5 mg 12.5 mg, Intravenous, [id number], Shiverin g, Starting on Tue09/23/20 at 1332, For 2 doses, Maximum cumulative dose is 25 mg. Do not give to patients receiving MAO inhibitors (e.g. phenelzine (NARDIL), tra nylcypromine (PARNATE), selegiline (ELDEPRYL))., PACU/Recovery midazolam (VERSED) injection 1-2 mg 1-2 mg, Intravenous, [id number], Sedation, Anxiety, Procedure, Starting on Tue09/23/20 at 1332, As directed by anesthesiologist MAX Dose 2mg, Pre-op midazolam (VERSED) injection 1-2 mg 1-2 mg, Intravenous, [id number], Sedation, Anxiety, Procedure, Starting on Tue09/23/20 at [...] PACU/Recovery documented in this encounter Care Teams General Surgery Physician Assistant Relationship Specialty Start Date End Date Mai Tiwari PA-C PCP - General Physician Caramel Cutter Machine 09/23/[address] [place] [address] [place], [place] [address] documented as of this encounter
--- OUTSIDE RECORDS SUMMARY | 2022-01-26 21:09 | XMS_ITS | Encounter Summary ---
:1960 Author Organization [facility] Address [address] [place] [address] Care Team Providers Name Role Phone Mai Tiwari PA-C Primary Care Provider Reason for Visit Reason Comments Breast Cancer Encounter Details Date Type Department Care Team Description 12/10/2020 Phone Visit [facility] Cancer [facility] 1 breast Care at [facility] ZECHARIAH Cotton i cancer, ER+, left [facility] [address] [facility] ([facility]) (Primary Dx) [address] [place] [address] [place], [place] [phone] Social History Tobacco Use Types Packs/Day Years Used Date Smoking Tobacco: Former Cigarettes 1 1973 - 1988 Alcohol Use Standard Drinks/Week Comments Yes 14 (1 standard drink = 0.6 oz pure alcoh ol) 8-14 drinks/week Sex Assigned at Date Recorded Not on file documented as of this encounter Progress Notes Radha Rashid MBBS - 12/10/2020 12:00 AM CDT NAME: LINUS DONNELLY CSN: [id number] CLINIC NOTE DATE OF SERVICE: 12/10/2020 : 1960 Diagnosis: T1cN0 multifocal ER/TX+ HER-2 neg ductal cancer Linus is a 60-year-old with past medical [...] cancer without any angiolymphatic invasion, ER 99%, TX 79%, HER-2 negative. The 3 o'clock position, [...] had ovarian cancer at age 26. EXAM: There were no vitals taken for this visit. Not done ASSESSMENT/PLAN:Linus is a 60-year-old with past medical history significant for hypertension comes today for evaluation of newly diagnosed breast cancer. Hormone positive ductal cancer:Linus was evaluated over the phone. She has completed radiation. She did have some redness and peeling for the past 2 days which is getting better. We reviewed the hormone-positive nature of her disease and to start adjuvant hormone therapy with Arimidex versus tamoxifen. I did discuss arranging a bone density and starting potentially the Arimidex, and I sent a prescription today. I went over the side effects, which include but are not limited to hot flashes, musculoskeletal pain, and bone loss. She will be seen in 3-4 months with a bone density. Total time spent about 20 minutes. ZECHARIAH OREILLY CDA/AQS /[id number] documented in this encounter Plan of Treatment Upcoming Encounters Date Type Specialty Care Team Description 02/11/2022 Phone Visit Oncology Radha Rashid MBBS [address] [facility] [address] (Wo rk) 05/20/2022 Appointment Oncology Radha Rashid MBBS [address] [facility] [address] (Wo rk) 05/20/2022 Appointment Chemo Therapy/Infusion Services documented as of this encounter Visit Diagnoses Diagnosis Stage 1 breast cancer, ER+, left ([facility]) - Primary documented in this encounter Care Teams System Planning Engineer Relationship Specialty Start Date End Date Mai Tiwari PA-C PCP - General Physician Billiard Parlor Manager 09/23/20 [address] [id number] documented as of this encounter
--- OUTSIDE RECORDS SUMMARY | 2022-01-26 21:09 | XMS_ITS | Encounter Summary ---
:1960 Author Organization [facility] Address [address] [address] Care Team Providers Name Role Phone Mai Tiwari PA-C Primary Care Provider Encounter Details Date Type Department Care Team Description 12/08/2021 Office Visit [facility] Cancer [facility] 1 breast Care at [facility] ZECHARIAH Cotton i cancer, ER+, left [facility] [address] [facility] ([facility]) (Primary Dx) [address] [place] [address] [place], [place] [phone] Social History Tobacco Use Types Packs/Day Years Used Date Smoking Tobacco: Former Cigarettes 1 1973 - 1988 Smokeless Tobacco: Never Alcohol Use Standard Drinks/Week Comments Yes 14 (1 standard drink = 0.6 oz pure alcoh ol) 8-14 drinks/week Sex Assigned at Date Recorded Not on file documented as of this encounter Progress Notes Radha Rashid MBBS - 12/08/2021 12:00 AM CDT NAME: LINUS DONNELLY CSN: [id number] CLINIC NOTE DATE OF SERVICE: 12/08/2021 : 1960 Diagnosis: T1cN0 multifocal ER/NH+ HER-2 neg ductal cancer Linus is a [...] cancer without any angiolymphatic invasion, ER 99%, NH 79%, HER-2 negative. The 3 o'clock position, [...] were no vitals taken for this visit. GENERAL: She is awake, alert, appears comfortable. Moderately built, well nourished. HEENT: Pupils are equal and reactive to light. Oral mucosa is pink, moist. No lesions LUNGS: Clear to auscultation. HEART: Rate, rhythm regular. ABDOMEN: Soft, nontender, nondistended. No organomegaly. EXTREMITIES: No edema. BREAST: no palpable masses/lesions/adenopathy NEUROLOGIC: No gross motor or sensory deficits on neuro exam. ASSESSMENT/PLAN:Linus is a 60-year-old with past medical history significant for hypertension comes today for evaluation of newly diagnosed breast cancer. Hormone positive ductal cancer:Linus comes today for followup. She denies any new symptoms. She did experience significant hot flashes, headache, tiredness, and achiness and hence, she took the Arimidex only for a month and stopped it and since then her symptoms are resolved. We discussed once again that her Oncotype DX is very low score with risk for recurrence with hormone therapy in 10 years of 3%. However, her cancer was 1.7 cm in size and considering the size of the cancer, we discussed potentially trying a different hormonal agent such as letrozole. I sent a prescription for her and I did advise her to try for 1-2 months to see if any symptoms that may arise could stabilize in the first couple of months and then we can have a phone visit after that. ZECHARIAH OREILLY CDA/AQS /[id number] documented in this encounter Plan of Treatment Upcoming Encounters Date Type Specialty Care Team Description 02/11/2022 Phone Visit Oncology Radha Rashid MBBS [address] [facility], [place] [address] (Wo jeet) 05/20/2022 Appointment Oncology Radha Rashid MBBS [address] [facility] [place], [place] [address] [address] (Wo rk) 05/20/2022 Appointment Chemo Therapy/Infusion Services documented as of this encounter Visit Diagnoses Diagnosis Stage 1 breast cancer, ER+, left ([facility]) - Primary documented in this encounter Care Teams Bandmill Operator Relationship Specialty Start Date End Date Mai Tiwari PA-C PCP - General Physician Mortar Maker 09/23/[address] [place] [address] documented as of this encounter
--- OUTSIDE RECORDS SUMMARY | 2022-01-26 21:09 | XMS_ITS | Encounter Summary ---
:1960 Author Organization [facility] Address [address] [place] [address] Care Team Providers Name Role Phone Mai Tiwari PA-C Primary Care Provider Reason for Visit Auth/Cert Specialty Diagnoses / Procedures Referred By Contact Refer red To Contact Diagnoses Stage 1 breast cancer, ER+, left ([facility]) Procedures RE-EXCISION MARGINS BREAST LUMPECTOMY UNILATERAL Referral ID Status Reason Start Date Expiration Date Visits Requ ested Visits Authorized [id number] 1 1 Encounter Details Date Type Department Care Team Description 09/23/2020 Anesthesia Event [place] [address] [address] [place] [address] Room Wily Rodrigez MD [address] [place] [address] [address] [facility] [address] Anesthesia Record Procedure Summary Procedure Name Responsible Anesthesia Start Anesthesia Stop Anesthesiologist Time Time RE-EXCISION MARGINS Jc Fonseca MD 09/23/20 1534 1 1650 BREAST LUMPECTOMY UNILATERAL (Left) Events Date Time Event Comment 09/23/2020 1533 1534 An Start 1536 An Start Data 1538 Face Tent 1547 MD/DO Present 1644 an stop data 1650 Care Handoff Note I discussed wi th [...] understanding of report Electr onically signed by Thais Black APRN, CR NA [id number] An Stop Care transferred . Name Total midazolam injection 2 mg/2 mL (VERSED) 2 mg fentaNYL injection (SUBLIMAZE) 100 mcg lidocaine 1% PF injection (XYLOCAINE) 50 mg propofol 10 mg/mL for procedural sedation (aka diPRIva n) 160 mg propofol 10 mg/mL for procedural sedation (aka diPRIva n) 346.55 mg ondansetron injection (ZOFRAN) 4 mg ceFAZolin (ANCEF) 1 g in dextrose 50 ml IVPB 1 g dexamethasone 4 mg/mL injection (DECADRON) 4 mg lactated ringers infusion 600 mL Agents Name O2 Air Identified Agent Name Blood No blood administrations on file. Lines, Drains, and Airways Type Details Placement Removal Peripheral IV Placement Date: 09/23/20 134 by 09/23/20 173 b y 09/23/20; Placement Carli Gupta, Martina Grajeda, Time: 1346; RN COLT Pre-existing: No; Inserted by?: RN; Size (Gauge): 18 G; Orientation: Right; Site Prep: Chlorhexidine; Local Anesthetic: Injectable, Lidocaine 1%; Insertion attempts: 1; Blood draw with insertion?: no; Patient Tolerance: Tolerated well; Removal Date: 09/23/20; Removal Time: 173; Removal Reason: Patient discharged; Catheter Tip: Intact Incision/Surgical Site 09/23/20; 1604; #1; 09/23/20 1604 by 09/03 by Yes (previous Annabelle Iglesias, Zara Day, surgical incision); RN Breast; Left; 09/23/20; 1852 documented in this encounter Social History Tobacco Use Types Packs/Day Years Used Date Smoking Tobacco: Former Cigarettes 1 1973 - 1988 Alcohol Use Standard Drinks/Week Comments Yes 14 (1 standard drink = 0.6 oz pure alcoh ol) 8-14 drinks/week Sex Assigned at Date Recorded Not on file documented as of this encounter Miscellaneous Notes Anesthesia Postprocedure Evaluation - Jc Fonseca MD - 09/23/2020 6:36 PM CDT [facility] Anesthesia Post-op Note Patient: Ayana Donnelly Post-Op Diagnosis: Stage 1 breast cancer, er+, left ([facility]) Procedure Performed: Procedure(s): Left - RE-EXCISION MARGINS BREAST LUMPECTOMY UNILATERAL - Wound Class: 1 CLEAN Anesthesia Type: MAC Post-op vital signs: Vitals Value Taken Time BP 126/72 09/23/20 1731 Temp 36 ??C (96.8 ??F) 09/23/20 1650 Pulse 76 09/23/20 1750 Resp 14 09/23/20 1745 SpO2 94 % 09/23/20 1750 Vitals shown include unvalidated device data. Pain Score: Presence Of Pain: denies Preferred Pain Scale: number (Numeric Rating Pain Scale) Pain Rating (0-10): Rest: 0 Post-op assessment: No anesthesia complication. Patient location: Phase 2 Airway Status: Patent Cardiovascular function: Satisfactory Hydration status: Satisfactory PONV: None Level of Consciousness: Awake Fully Participates Postop Assessment: Patient tolerated procedure well. Electronically signed by: Jc Fonseca MD 09/23/2020 6:36 PM Anesthesia Preprocedure Evaluation - Jc Fonseca MD - 09/23/2020 2:16 PM CDT [facility] Anesthesia Pre-op Evaluation Procedure: Procedure(s): Left - RE-EXCISION MARGINS BREAST LUMPECTOMY UNILATERAL HPI: 60 y.o. old female with Stage 1 breast cancer, er+, left ([facility]) NPO Status: Last Fluid Intake Date: 09/22/20 Last Food Intake Date: 09/22/20 No Known Allergies Past Medical History: Diagnosis Date ??? Anxiety ([facility]) ??? Asthma ??? Hypertension ([facility]) ??? Malignant neoplasm of overlapping sites of breast in female, estrogen receptor positive ([facility]) 08/20/2020 Patient Active Problem List Diagnosis ??? Malignant neoplasm of overlapping sites of breast in female, estrogen receptor positive ([facility]) ??? Stage 1 breast cancer, ER+, left ([facility]) No past surgical history on file. Outpatient Medications as of 09/23/2020 Medication Sig ??? acetaminophen (TYLENOL) 500 MG tablet Take 2 Tablets by mouth every 6 hours as needed for up to 14 days. ??? ALBUterol sulfate HFA 108 (90 Base) MCG/ACT inhaler Inhale 2 Puffs. ??? amLODIPine (NORVASC) 10 MG tablet ??? aspirin 81 MG chewable tablet Chew and swallow 81 mg by mouth daily. ??? beclomethasone (QVAR REDIHALER) 80 MCG/ACT HFA inhaler Inhale 1 Puff. ??? citalopram (CELEXA) 20 MG tablet ??? EPINEPHrine (PRIMATENE MIST IN) ??? EPINEPHrine (PRIMATENE MIST) 0.125 MG/ACT AERO 1-2 Puffs as needed. Primotene mist inhaler OTC ??? ibuprofen (MOTRIN) 200 MG tablet Take 2 Tablets by mouth every 6 hours as needed for up to 14 days. ??? lisinopril (ZESTRIL) 20 MG tablet Facility-Administered Medications as of 09/23/2020 Medication Dose Route Frequency ??? ceFAZolin (ANCEF) 1 g in dextrose 50 ml IVPB 1 g Intravenous Once ??? fentaNYL (SUBLIMAZE) injection 25-50 mcg 25-50 mcg Intravenous Q5MIN PRN ??? fentaNYL (SUBLIMAZE) injection 25-50 mcg 25-50 mcg Intravenous Q5MIN PRN ??? fentaNYL (SUBLIMAZE) injection 25-50 mcg 25-50 mcg Intravenous Q5MIN PRN ??? fentaNYL (SUBLIMAZE) injection 25-50 mcg 25-50 mcg Intravenous Q5MIN PRN ??? hydrALAZINE (APRESOLINE) injection 5 mg 5 mg Intravenous Q10MIN PRN ??? HYDROmorphone (DILAUDID) injection 0.2-0.3 mg 0.2-0.3 mg Intravenous Q10MIN PRN ??? lactated ringers infusion 25 mL/hr Intravenous Continuous ??? [COMPLETED] lidocaine PF (XYLOCAINE) 1 % injection 0.1-0.3 mL 0.1-0.3 mL Intradermal Once And ??? lidocaine PF (XYLOCAINE) 1 % injection 0.1-0.3 mL 0.1-0.3 mL Intradermal PRN ??? meperidine (DEMEROL) injection 12.5 mg 12.5 mg Intravenous Q5MIN PRN ??? midazolam (VERSED) injection 1-2 mg 1-2 mg Intravenous Q5MIN PRN ??? midazolam (VERSED) injection 1-2 mg 1-2 mg Intravenous Q5MIN PRN ??? naloxone (NARCAN) injection 0.08 mg 0.08 mg Intravenous PRN ??? naloxone (NARCAN) injection 0.08 mg 0.08 mg Intravenous PRN ??? naloxone (NARCAN) injection 0.4 mg 0.4 mg Intravenous ONCE PRN ??? naloxone (NARCAN) injection 0.4 mg 0.4 mg Intravenous ONCE PRN ??? ondansetron (ZOFRAN) injection 4 mg 4 mg Intravenous Q4H PRN ??? ondansetron (ZOFRAN) injection 4 mg 4 mg Intravenous Q4H PRN Labs: No results found for: SODIUM, K, CHLORIDE, CO2, BUN, CREATININE, GLUCOSE No results found for: WBC, HGB, HCT, PLTS No results found for: INR Blood Bank: No results found for: ABO, ABSCR EKG: No results found for this or any previous visit. Physical Exam: BP (!) 154/76 Pulse 78 Temp 36.6 ??C (97.9 ??F) (Temporal Artery) Resp 18 Ht 5' 1 Wt 88 kg (194 lb) SpO2 99% BMI 36.66 kg/m?? Assessment/Plan: Review of Systems Patient does not have GERD. Patient is not a current smoker. Patient is a former smoker. The patient reports alcohol use. Patient denies any recent URI. History of PONV: No. History of motion sickness: No. Patient denies any personal or family history of anesthesia complications (PONV). Exam Mental Status: Alert and oriented. Mallampati score: III (Three). Mouth opening: Normal Thyromental Distance: > 3 finger breadths and Normal Neck Extension: Full Neck Circumference > 40 cm?: No Airway assessment: EZ glydescjope. Current airway assessment:Normal Cardiac Exam: Regular rate and rhythm. Respiratory Exam: Breath sounds clear to auscultation Assessment ASA Status: 2 . Plan Anesthesia type: MAC Induction: Intravenous Maintenance: TIVA Postoperative pain management (PONV): Plan for postoperative opioid use PONV Risk Score Peds:0 PONV Risk Score Adult: 3 PONV Prophylaxis (planned): Ondansetron and Decadron Anesthetic plan, risks, benefits and alternatives discussed with: Patient or Other Sports Official agree tothe anesthesia treatment plan. H&P Reviewed and Patient examined, no change observed IV access Antibiotics per surgery Electronically signed by: Jc Fonseca MD 09/23/2020 2:16 PM documented in this encounter Plan of Treatment Upcoming Encounters Date Type Specialty Care Team Description 02/11/2022 Phone Visit Oncology Radha Rashid MBBS [address] [facility], [place] [address] (Wo rk) 05/20/2022 Appointment Oncology Radha Rashid MBBS [address] [facility], [address] [address] (Wo rk) 05/20/2022 Appointment Chemo Therapy/Infusion Services documented as of this encounter Visit Diagnoses Not on filedocumented in this encounter Administered Medications Inactive Administered Medications - up to 3 most recent administrations Medication Order MAR Action Action Date Dose Rate Site ceFAZolin (ANCEF) 1 g in dextrose 50 Given 09/23/2020 3:44 PM CD T 1 g ml IVPB 1 g, Intravenous, Administer over 30 Minutes, ONCE, On Tue09/23/20 at 1330, For 1 dose, Infuse within 60 minutes prior to incision. Re-dose 1 gram IV every 4 hours after initial dose until incision closed. Re-dose if more than 1.5L of blood loss. Pharmacy may adjust for renal insufficiency., Pre-op dexamethasone (DECADRON) injection Given 09/23/2020 3:44 PM CDT 4 mg Intravenous, Starting on Tue09/23/20 at 1544, Until Tue09/23/20 at 1650 fentaNYL (SUBLIMAZE) injection Given 09/23/2020 3:57 PM CDT 25 mcg Intravenous, Starting on Tue09/23/20 at 1550, Until Tue09/23/20 at 1650 Given 09/23/2020 3:55 PM CDT 25 mcg Given 09/23/2020 3:53 PM CDT 25 mcg lactated ringers infusion Rate/Dose Change 09/23/2020 4:49 PM CDT 600 mL/hr 25 mL/hr, Intravenous, CONTINUOUS, Starting on Tue09/23/20 at 1330, Administer on all preop surgery patients, ages 12 and older, unless specified differently in the Protocol for Preop Initiation of IV fluids Order Set., Pre-op Started 09/23/2020 1:47 PM CDT 25 mL/hr 25 mL/hr lidocaine PF (XYLOCAINE) 1 % injection Given 09/23/2020 3:42 PM CDT 50 mg Intravenous, Starting on Tue09/23/20 at 1542 midazolam (VERSED) injection Given 09/23/2020 3:34 PM CDT 2 mg Intravenous, Starting on Tue09/23/20 at 1534, Until Tue09/23/20 at 1650 ondansetron (ZOFRAN) injection Given 09/23/2020 3:44 PM CDT 4 mg Intravenous, Starting on Tue09/23/20 at 1544, Until Tue09/23/20 at 1650 propofol (DIPRIVAN) 10 mg/mL injection Given 09/23/2020 4:35 PM CDT 30 mg Intravenous, Starting on Tue09/23/20 at 1542, Until Tue09/23/20 at 1650 Given 09/23/2020 3:55 PM CDT 20 mg Given 09/23/2020 3:52 PM CDT 20 mg propofol (DIPRIVAN) 10 mg/mL Restarted 09/23/2020 4:35 100 mcg/k g/min 28.68 mL/hr injection PM CDT Intravenous, Starting on Tue09/23/20 at 1544, Until Tue09/23/20 at 1650 Rate/Dose Change 09/23/2020 4:13 PM CDT 175 mcg/kg/min 50.19 mL/hr Rate/Dose Change 09/23/2020 4:02 PM CDT 150 mcg/kg/min 43.02 mL/hr documented in this encounter Care Teams Machine Cloth Examiner Relationship Specialty Start Date End Date Mai Tiwari PA-C PCP - General Physician Bellows Tester 09/23/[address] [facility] [address] [place] [address] documented as of this encounter
--- OUTSIDE RECORDS SUMMARY | 2022-01-26 21:09 | XMS_ITS | Encounter Summary ---
:1960 Author Organization [employer] Address [address], [place] [address] Care Team Providers Name Role Phone Mai Tiwari PA-C Primary Care Provider Reason for Visit Procedure/Equipment (Routine) - Incomplete Specialty Diagnoses / Procedures Referred By Contact Refer red To Contact Diagnoses Visit for screening mammogram Rahda Rashid Procedures MM Mammogram Screening Bilat W 3D Andre W CAD MM Mammogram Screening Bilat W Implants W 3D Andre W ZECHARIAH Serrato [address] [place], [place] [address] Referral ID Status Reason Start Date Expiration Date Visits V isits Requested Authorized [id number] Incomplete 05/21/2021 08/20/2022 1 1 Encounter Details Date Type Department Care Team Description 08/03/2021 Ancillary [place], Visit for s creening Procedure Mammography ZECHARIAH Ricardo mammogram [address] [place] [address] [phone] Social History Tobacco Use Types Packs/Day Years [...] Phone Visit Oncology Radha Rashid MBBS [address] [place] [address] [address] (Wo rk) 05/20/2022 Appointment Oncology Radha Rahsid MBBS [address] [address] (Wo rk) 05/20/2022 Appointment Chemo Therapy/Infusion Services documented as of this encounter Procedures Procedure Name Priority Date/Time Associated Diagnosis Comme nts MM MAMMOGRAM Routine 08/03/2021 10:19 AM Visit for screening R esults for this SCREENING BILAT W CDT mammogram procedure are in 3D ANDRE W CAD the results section. documented in this encounter Results MM Mammogram Screening Bilat W 3D Andre W CAD (08/03/2021 10:19 AM CDT) Anatomical Region Laterality Modality Breast Bilateral Mammography Specimen (Source) Anatomical Location Collection Method / Collectio n Time Received Time / Laterality Volume Impressions 08/03/2021 10:25 AM CDT : ACR BI-RADS Category 2: Benign RECOMMENDATION: Follow Up Imaging in 12 months - Bilateral The results and recommendations of this examination will be communicated to the patient. Narrative 08/03/2021 10:25 AM CDT MM MAMMOGRAM SCREENING BILAT W 3D ANDRE W CAD performed on 08/03/21 Compared to: 07/31/2020 Foreign Image(S) Mammogram, 06/23/2017 Foreign Image(S) Mammogram, and 02/12/2016 Forei gn Image(S) Mammogram ?? FINDINGS: Bilateral screening mammogram was performed with the assistance of Computer-Aided Detection and breast t omosynthesis. The breasts are heterogeneously dense, which may obscure small masses. There are breast conservation changes on the left. There is no radiographic evidence of mal ignancy. ?? Radha APPLE RAD RONAK documented in this encounter Visit Diagnoses Diagnosis Visit for screening mammogram Other screening mammogram documented in this encounter Care Teams Chief Solution Architect Relationship Specialty Start Date End Date Mai Tiwari PA-C PCP - General Physician Subassembler 09/23/20 [address] [facility] [address] [place] [address] documented as of this encounter
--- OUTSIDE RECORDS SUMMARY | 2022-01-26 21:09 | XMS_ITS | Encounter Summary ---
:1960 Author Organization [facility] Address [address], [place] [address] Care Team Providers Name Role Phone Mai Tiwari PA-C Primary Care Provider Reason for Visit Reason Comments Future Appointments Dr[facility] Bone Density Encounter Details Date Type Department Care Team Description 12/10/2020 Telephone [facility] Cancer [place] Rashid Appointments Care at [facility] ZECHARIAH Cotton i (Dr. As[facility] [place] [facility] [address] [facility]) [address] [place], [place] [id number] [place] [address] (Wo rk) Social History Tobacco Use Types Packs/Day Years Used Date Smoking Tobacco: Former Cigarettes 1 1973 - 1988 Alcohol Use Standard Drinks/Week Comments Yes 14 (1 standard drink = 0.6 oz pure alcoh ol) 8-14 drinks/week Sex Assigned at Date Recorded Not on file documented as of this encounter Patient Instructions Patient InstructionsPrMelissa Horvath - 12/10/2020 3:30 PM CDT Left voicemail regarding scheduling appointments per scheduling sheet dated 12/10/2020.Scheduling number provided on . documented in this encounter Plan of Treatment Upcoming Encounters Date Type Specialty Care Team Description 02/11/2022 Phone Visit Oncology Radha Rashid MBBS [address] [facility] [place] [address] [address] (Wo rk) 05/20/2022 Appointment Oncology Radha Rashid MBBS [address] [facility] [place], [place] [address] [address] (Wo rk) 05/20/2022 Appointment Chemo Therapy/Infusion Services documented as of this encounter Visit Diagnoses Not on filedocumented in this encounter Care Teams Biostatistics Teacher Relationship Specialty Start Date End Date Mai Tiwari PA-C PCP - General Physician Mold Parter 09/23/[address] [address] documented as of this encounter
--- OUTSIDE RECORDS SUMMARY | 2022-01-26 21:09 | XMS_ITS | Encounter Summary ---
:1960 Author Organization [facility] Address [address] [address] Care Team Providers Name Role Phone Mai Tiwari PA-C Primary Care Provider Reason for Visit Reason Comments Follow-up Encounter Details Date Type Department Care Team Description 10/01/2021 Office Visit [facility] 1 [facility] at [facility] ZECHARIAH Cotton i cancer, ER+, left [facility] [address] [facility] ([facility]) (Primary Dx) [address] [place], [place] [address] [place] [address] [phone] Social History Tobacco Use Types Packs/Day [...] ??F) 10/01/2021 1:35 PM CDT Respiratory Rate - - Oxygen Saturation - - Inhaled Oxygen Concentration - - Weight 93 kg (205 lb) 10/01/2021 1:35 PM CDT Height - - Body Mass Index 38.73 09/23/2020 1:30 PM CDT documented in this encounter Progress Notes Radha Rashid MBBS - 10/01/2021 12:00 AM CDT NAME: LINUS DONNELLY CSN: [id number] NAME: LINUS DONNELLY CSN: [id number] CLINIC NOTE DATE OF SERVICE: 10/01/2021 : 1960 Diagnosis: T1cN0 multifocal ER/ID+ HER-2 neg ductal cancer Linus is a [...] cancer without any angiolymphatic invasion, ER 99%, ID 79%, HER-2 negative. The 3 o'clock position, [...] at age 26. EXAM: Blood pressure (!) 153/75, pulse 93, temperature 97.8 ??F (36.6 ??C), temperature source Temporal Artery, weight 205 lb (93 kg). GENERAL: She is awake, alert, appears comfortable. [...] positive ductal cancer:Linus comes today for followup. Overall, she is feeling well and denies any chest pain, shortness of breath, abdominal pain, nausea, vomiting, diarrhea, blood in the urine, stool or dark stool. She is functioning well. She has not started the hormone therapy yet for unclear reason. I did send the prescription to her pharmacy few months back but she never got a call fromher pharmacy, and also her bone density that we thought would be scheduled sooner was scheduled onlyin August of this year. I reviewed with her that it showed moderate bone loss. I discussed taking calcium and vitamin D 1000 international units and 500 mg of calcium daily. I once again sent another prescription for Arimidex and asked her to call us if she has any problems with this medication. I reviewed the side effects, which include hot flashes, musculoskeletal pain, and bone loss. We will be starting Zometa annually and discussed the side effects, which include rare risk for osteonecrosis of the jaw and reminded her to call us if she has any dental procedures I will see her back in 3 to 4 months. ZECHARIAH OREILLY CDA/AQS /[id number] documented in this encounter Plan of Treatment Upcoming Encounters Date Type Specialty Care Team Description 02/11/2022 Phone Visit Oncology Radha Rashid MBBS 3931 [facility] [address] (Wo rk) 05/20/2022 Appointment Oncology Radha Rashid MBBS 39[address] [facility], N [address] (Wo rk) 05/20/2022 Appointment Chemo Therapy/Infusion Services documented as of this encounter Visit Diagnoses Diagnosis Stage 1 breast cancer, ER+, left ([facility]) - Primary documented in this encounter Care Teams Graphite Grinder Relationship Specialty Start Date End Date Mai Tiwari PA-C PCP - General Physician Affiliate Marketing Specialist 09/23/[address] [address] documented as of this encounter
--- OUTSIDE RECORDS SUMMARY | 2022-01-26 21:09 | XMS_ITS | Encounter Summary ---
:1960 Author Organization [employer] Address [address] [place] [address] Care Team Providers Name Role Phone Unavailable Primary Care Provider Unavailable Reason for Referral Procedure/Equipment (Routine) - Incomplete Specialty Diagnoses / Procedures Referred By Contact Refer red To Contact Diagnoses Stage 1 breast cancer, ER+, left ([facility]) Marcie Ruiz MD Procedures Case Request OR - General/Vascular Surg: RE-EXCISION MARGINS BREAST LUMPECTOMY UNILATERAL 39[address] [place], [place] [address] Referral ID Status Reason Start Date Expiration Date Visits V isits Requested Authorized [id number] Incomplete 09/16/2020 12/16/2021 1 1 Encounter Details Date Type Department Care Team Description 09/16/2020 Notes/Orders Specialty [facility] 3931 Aruna Ruiz MD Stage 1 breast General Surgery 3931 [facility] cancer, ER+, left 3931 [facility] ([facility]) (Primary Dx) [address] [place] [address] [id number] [phone] Social History Tobacco Use Types Packs/Day Years [...] Visit Oncology Radha Rashid MBBS 39[address] [place]una [place] N [address] (Wo rk) 05/20/2022 Appointment Oncology Radha Rashid MBBS [address] [place] N [address] (Wo rk) 05/20/2022 Appointment Chemo Therapy/Infusion Services documented as of this encounter Results 2019 Novel Coronavirus (COVID-19) (09/21/2020 10:50 AM CDT) [facility] Method Time Signature COVID-19 Not Not 09/22/2020 [facility] Interpretation Detected Detected 3:56 AM CENTRAL LAB CDT Source Nares, left 09/22/2020 [facility] and right 3:56 AM LABORATORY CDT Specimen Anatomical Collection Method Collection Time Receive d Time (Source) Location / / Volume Laterality Swab (Source Non-blood 09/21/2020 10:50 09/21/2020 Required) Collection / AM CDT 10:54 AM CDT Unknown Narrative [facility] - 09/22/2020 3:56 AM CDT Test performed by Brim Edge Trimmer Mediated Amplification. TMA has been shown to be equivalent to commercial real-time PCR t ests. This test has been authorized by the FDA under an Emergency Use Authorization (EUA) for use by authorized laboratories. Marcie Ruiz MD LAB_1 Performing Organization Address City/State/ZIP Code Phon e Number [facility] CENTRAL LAB [address] [address] [facility] [address] documented in this encounter Visit Diagnoses Diagnosis Stage 1 breast cancer, ER+, left ([facility]) - Primary documented in this encounter
--- OUTSIDE RECORDS SUMMARY | 2022-01-26 21:09 | XMS_ITS | Encounter Summary ---
:1960 Author Organization [employer] [facility] Address [address] [place] [address] Care Team Providers Name Role Phone Mai Tiwari PA-C Primary Care Provider Encounter Details Date Type Department Care Team Description 01/06/2021 Telephone Patient Financial Se rvices Marcie Ruiz MD [address] [place] [address] [place], [place] 148226 (Wo rk) Social History Tobacco Use Types [...] Phone Visit Oncology Radha Rashid MBBS 39[address] [facility] N 895116 (Wo rk) 05/20/2022 Appointment Oncology Radha Rashid MBBS 39[address] [facility], N [address] (Wo rk) 05/20/2022 Appointment Chemo Therapy/Infusion Services documented as of this encounter Visit Diagnoses Not on filedocumented in this encounter Care Teams Fishing Boat Mate Relationship Specialty Start Date End Date Mai Tiwari PA-C PCP - General Physician Wafer Slicer 09/23/20 [address] [place] [address] documented as of this encounter
--- OUTSIDE RECORDS SUMMARY | 2022-01-26 21:09 | XMS_ITS | Encounter Summary ---
:1960 Author Organization [facility] Address [address] [place] [address] Care Team Providers Name Role Phone Mai Tiwari PA-C Primary Care Provider Encounter Details Date Type Department Care Team Description 09/16/2020 Telephone [place] [id number] Maty Hardwick Breast [facility] maria isabel C, RN [address] [place] [address] Social History Tobacco Use Types Packs/Day Years Used Date Smoking Tobacco: Former Cigarettes 1 1973 - 1988 Alcohol Use Standard Drinks/Week Comments Yes 14 (1 standard drink = 0.6 oz pure alcoh ol) 8-14 drinks/week Sex Assigned at Date Recorded Not on file documented as of this encounter Nursing Notes Roxana Bañuelos RN - 09/16/2020 3:16 PM CDT Post-Operative General Surgery Phone Calls Date of Surgery: 09/12/2020 Type of Surgery: Left Lumpectomy w/ SLNB. Appearance of Incision/Dressing: No redness, swelling or drainage Current Activity Level: out and about. Bowel/Bladder Function: Patient reports no problems. Tolerating Food/Fluids: Patient reports no problems. General Level of Well Being: No complaints per patient. Other: reminded of post op visit and reviewed pathology report. Patient informed of detailed surgical report. 2 foci of invasive cancer measuring 1.7 cm and 1.0 cm, 1 LN removed which is negative for cancer. Informed patient of positive margin. Discussed what this means, including additional surgery to re-excise additional tissue. Patient has a good understanding of the above. She is pleased LN are negative. She has no questions at this time, and will move forward with re-excision. She has my numberif she has any concerns. I will mail her a copy of her report (does not have MyChart). documented in this encounter Plan of Treatment Upcoming Encounters Date Type Specialty Care Team Description 02/11/2022 Phone Visit Oncology Radha Rashid MBBS 3931 [facility] [place] N [phone] (Wo rk) 05/20/2022 Appointment Oncology Radha Rashid MBBS [address] [facility] N 218656 (Wo rk) 05/20/2022 Appointment Chemo Therapy/Infusion Services documented as of this encounter Visit Diagnoses Not on filedocumented in this encounter Care Teams Ambulette Driver Relationship Specialty Start Date End Date Mai Tiwari PA-C PCP - General Physician Bench Worker 09/23/[address] [address] documented as of this encounter
--- OUTSIDE RECORDS SUMMARY | 2022-01-26 21:09 | XMS_ITS | Encounter Summary ---
:1960 Author Organization [facility] Address [address] [place] [address] Care Team Providers Name Role Phone Mai Tiwari PA-C Primary Care Provider Encounter Details Date Type Department Care Team Description 04/09/2021 Notes/Orders [facility] Cancer Care Harrison coulter, at [facility] ZECHARIAH Sterling ra Oncology [address] [place] [phone] (Wo rk) Social History Tobacco Use Types Packs/Day Years Used Date Smoking Tobacco: Former Cigarettes 1 1973 - 1988 Smokeless Tobacco: Never Alcohol Use Standard Drinks/Week Comments Yes 14 (1 standard drink = 0.6 oz pure alcoh ol) 8-14 drinks/week Sex Assigned at Date Recorded Not on file documented as of this encounter Progress Notes Mirna Collier RN - 04/09/2021 4:31 PM CST Frontline please assist with scheduling mammogram in August 2021. E HANGER Silvia Cali RN - 04/09/2021 4:31 PM CST Do we want to send a letter? Thanks!! E HANGER Marcie Barry APRN, CNP - 04/09/2021 4:31 PM CST Letter provided. Thanks E HANGER documented in this encounter Plan of Treatment Upcoming Encounters Date Type Specialty Care Team Description 02/11/2022 Phone Visit Oncology Radha Rashid MBBS 3931 [facility] [place] N [address] (Wo rk) 05/20/2022 Appointment Oncology Radha Rashid MBBS 3931 [facility] N [address] (Wo rk) 05/20/2022 Appointment Chemo Therapy/Infusion Services documented as of this encounter Visit Diagnoses Not on filedocumented in this encounter Care Teams Paper Machine Backtender Relationship Specialty Start Date End Date Mai Tiwari PA-C PCP - General Physician Sports Management Intern 09/23/[address] [address] documented as of this encounter
--- OUTSIDE RECORDS SUMMARY | 2022-01-26 21:09 | XMS_ITS | Encounter Summary ---
:1960 Author Organization [facility] Address [address] [place] [address] Care Team Providers Name Role Phone Mai Tiwari PA-C Primary Care Provider Reason for Referral Procedure/Equipment (Routine) - Incomplete Specialty Diagnoses / Procedures Referred By Contact Refer red To Contact Diagnoses Stage 1 breast cancer, ER+, left ([facility]) Radha Rashid Procedures MM Mammogram Screening Bilat [address] Andre W ZECHARIAH Serrato 39[address] [place], [place] [address] Referral ID Status Reason Start Date Expiration Date Visits V isits Requested Authorized [id number] Incomplete 04/09/2021 07/09/2022 1 1 INSTRUCTOR Encounter Details Date Type Department Care Team Description 04/09/2021 Notes/Orders [facility] Cancer Harrison Askew age 1 breast Care at ZECHARIAH Zepeda i cancer, ER+, left [facility] [address] [facility] (HR) (Primary Dx) [address] [place] [address] [place], [place] [phone] Social History Tobacco Use Types Packs/Day Years [...] Phone Visit Oncology Radha Rashid MBBS [address] [facility] [place] N [address] (Wo rk) 05/20/2022 Appointment Oncology Radha Rashid MBBS 3931 [facility] [place] N [address]396 (Wo rk) 05/20/2022 Appointment Chemo Therapy/Infusion Services [...] Primary documented in this encounter Care Teams Glass Vial Filler Relationship Specialty Start Date End Date Mai Tiwari PA-C PCP - General Physician Building Contractor 09/23/[address] [place] [address] documented as of this encounter
--- OUTSIDE RECORDS SUMMARY | 2022-01-26 21:09 | XMS_ITS | Encounter Summary ---
:1960 Author Organization [employer] Address [address] [place] [address] Care Team Providers Name Role Phone Mai Tiwari PA-C Primary Care Provider Reason for Visit Reason Comments Post-Op Check Encounter Details Date Type Department Care Team Description 09/29/2020 Telephone Specialty Center 3931 General Rafy Kim RN Post-Op Check Surgery 3931 [facility] [address] [place], [place] [phone] Social History Tobacco Use Types Packs/Day Years Used Date Smoking Tobacco: Former Cigarettes 1 1973 - 1988 Alcohol Use Standard Drinks/Week Comments Yes 14 (1 standard drink = 0.6 oz pure alcoh ol) 8-14 drinks/week Sex Assigned at Date Recorded Not on file documented as of this encounter Nursing Notes Peyton Kim RN - 09/29/2020 3:14 PM CDT Called pt to inform her that appt with Dr. Ruiz needs to be cancelled today. Pt reports no concerns and does not need to reschedule at this point. Pt will call in the future with questions or concerns. documented in this encounter Plan of Treatment Upcoming Encounters Date Type Specialty Care Team Description 02/11/2022 Phone Visit Oncology Radha Rashid MBBS 3931 [facility] [phone] (Wo rk) 05/20/2022 Appointment Oncology Radha Rashid MBBS 9[address] [facility], N 410316 (Wo rk) 05/20/2022 Appointment Chemo Therapy/Infusion Services documented as of this encounter Visit Diagnoses Not on filedocumented in this encounter Care Teams Mining Support Worker Relationship Specialty Start Date End Date Mai Tiwari PA-C PCP - General Physician Residential Real Estate Agent 09/23/[address] [facility] [address] [place] [address] documented as of this encounter
--- OUTSIDE RECORDS SUMMARY | 2022-01-26 21:09 | XMS_ITS | Encounter Summary ---
:1960 Author Organization [employer] Address [address] [place] [address] Care Team Providers Name Role Phone Unavailable Primary Care Provider Unavailable Encounter Details Date Type Department Care Team Description 09/21/2020 Lab Visit [facility] Stage 1 breast cancer, ER+, Laboratory left ([facility]) [address] [place] [address] Social History Tobacco Use Types Packs/Day Years [...] Phone Visit Oncology Radha Rashid MBBS 3931 [facility], N [address] (Wo jeet) 05/20/2022 Appointment Oncology Radha Rashid MBBS 3931 [facility], N [phone] (Wo jeet) 05/20/2022 Appointment Chemo Therapy/Infusion Services documented as of this encounter Procedures Procedure Name Priority Date/Time Associated Comments Diagnosis 2019 NOVEL Routine 09/21/2020 10:50 Stage 1 breast Results f or this CORONAVIRUS AM CDT cancer, ER+, left procedure are in (C) the results section. documented in this encounter Results 2019 Novel Coronavirus (COVID-19) (09/21/2020 10:50 AM CDT) [facility] Method Time Signature COVID-19 Not Not 09/22/2020 [facility] Interpretation Detected Detected 3:56 AM CENTRAL LAB CDT Source Nares, left 09/22/2020 [facility] and right 3:56 AM LABORATORY CDT Specimen Anatomical Collection Method Collection Time Receive d Time (Source) Location / / Volume Laterality Swab (Source Non-blood 09/21/2020 10:50 09/21/2020 Required) Collection / AM CDT 10:54 AM CDT Unknown Narrative [facility] - 09/22/2020 3:56 AM CDT Test performed by Aircraft Painter Mediated Amplification. TMA has been shown to be equivalent to commercial real-time PCR t ests. This test has been authorized by the FDA under an Emergency Use Authorization (EUA) for use by authorized laboratories. Marcie Ruiz MD LAB_1 Performing Organization Address City/State/ZIP Code Phon e Number [facility] [address] [address] [facility] [address] [place] [address] documented in this encounter Visit Diagnoses Diagnosis Stage 1 breast cancer, ER+, left ([facility]) documented in this encounter
--- OUTSIDE RECORDS SUMMARY | 2022-01-26 21:09 | XMS_ITS | Encounter Summary ---
:1960 Author Organization [employer] Address [address] [place] [address] Care Team Providers Name Role Phone Mai Tiwari PA-C Primary Care Provider Reason for Visit Reason Onset Date Comments RESULTS, TEST 09/26/2020 Encounter Details Date Type Department Care Team Description 09/26/2020 Telephone [place] [address] Maty Hardwick RESULTS, TEST [place] Breast [facility] maria isabel Potts, RN [address] [place] [address] Social History Tobacco Use Types Packs/Day Years Used Date Smoking Tobacco: Former Cigarettes 1 1973 - 1988 Alcohol Use Standard Drinks/Week Comments Yes 14 (1 standard drink = 0.6 oz pure alcoh ol) 8-14 drinks/week Sex Assigned at Date Recorded Not on file documented as of this encounter Nursing Notes Roxana Bañuelos, RN - 09/26/2020 2:44 PM CDT Post-Operative General Surgery Phone Calls Date of Surgery: 09/23/2020 Type of Surgery: Re-excision of Left Breast. Appearance of Incision/Dressing: No redness, swelling or drainage. Current Activity Level: back at work. Bowel/Bladder Function: Patient reports no problems. Tolerating Food/Fluids: Patient reports no problems. General Level of Well Being: No complaints per patient. Other: reminded of post op visit and reviewed pathology report. Informed of Negative margins, and noadditional surgery needed. Patient pleased with report! She has all of her follow-ups scheduled; I will get her plugged in with xRT in [place]. documented in this encounter Plan of Treatment Upcoming Encounters Date Type Specialty Care Team Description 02/11/2022 Phone Visit Oncology Radha Rashid MBBS 3931 [facility], [place] [address] (Wo rk) 05/20/2022 Appointment Oncology Radha Rashid MBBS 39[address] [facility], N [address] (Wo rk) 05/20/2022 Appointment Chemo Therapy/Infusion Services documented as of this encounter Visit Diagnoses Not on filedocumented in this encounter Care Teams Ammonia Refrigeration Technician Relationship Specialty Start Date End Date Mai Tiwari PAJamesC PCP - General Physician Mortgage Loan Closer 09/23/[address] [address] documented as of this encounter
--- OUTSIDE RECORDS SUMMARY | 2022-01-26 21:09 | XMS_ITS | Encounter Summary ---
:1960 Author Organization [employer] Address [address], [place] [address] Care Team Providers Name Role Phone Mai Tiwari PA-C Primary Care Provider Encounter Details Date Type Department Care Team Description 10/15/2020 Notes/Orders [facility] Radha Rashid [address] [facility] [place] [address] 3931 [facility] [phone] [facility] N [phone] (Wo rk) Social History Tobacco Use Types [...] Phone Visit Oncology Radha Rashid MBBS 3931 [facility] N 614176 (Wo rk) 05/20/2022 Appointment Oncology Radha Rashid MBBS 3931 [facility] N [address] (Wo rk) 05/20/2022 Appointment Chemo Therapy/Infusion Services documented as of this encounter Visit Diagnoses Not on filedocumented in this encounter Care Teams Manager Of Care Relationship Specialty Start Date End Date Mai Tiwari PA-C PCP - General Physician [place] Machine Operator 09/23/20 [address] [address] documented as of this encounter
--- OUTSIDE RECORDS SUMMARY | 2022-01-26 21:09 | XMS_ITS | Encounter Summary ---
:1960 Author Organization [employer] Address [address] [place] [address] Care Team Providers Name Role Phone Unavailable Primary Care Provider Unavailable Reason for Referral Procedure/Equipment (Routine) - Incomplete Specialty Diagnoses / Procedures Referred By Contact Refer red To Contact Diagnoses Malignant neoplasm of overlapping sites of both breasts in female, estrogen receptor positive ([facility]) Marcie Ruiz MD Procedures NM Breast Sent Node Inj Lt 3931 [place], [place] [address] Referral ID Status Reason Start Date Expiration Date Visits V isits Requested Authorized [id number] Incomplete 08/27/2020 11/26/2021 6 6 Reason for Visit Auth/Cert Specialty Diagnoses / Procedures Referred By Contact Refer red To Contact Diagnoses Malignant neoplasm of overlapping sites of both breasts in female, estrogen receptor positive ([facility]) Procedures left breast seed localized lumpectomy with sentinel lymph node biopsy Referral ID Status Reason Start Date Expiration Date Visits Requ ested Visits Authorized [id number] 1 1 Encounter Details Date Type Department Care Team Description 09/12/2020 Hospital Encounter [facility] Marcie Ruiz, Malignant neoplasm Medicine of overlapping [address] [place] 39[address] [facility] sites o f [address] breasts in female, [place], [place] [phone] positive ([facility]) [phone] Social History Tobacco Use Types Packs/Day Years [...] 14 days. documented as of this encounter Plan of Treatment Upcoming Encounters Date Type Specialty Care Team Description 02/11/2022 Phone Visit Oncology Radha Rashid MBBS 3931 [facility], [place] [address] (Wo rk) 05/20/2022 Appointment Oncology Radha Rashid MBBS 3931 [facility] [place] [address] (Wo rk) 05/20/2022 Appointment Chemo Therapy/Infusion Services documented as of this encounter Procedures Procedure Name Priority Date/Time Associated Diagnosis Comme nts NM BREAST SENT NODE Routine 09/12/2020 11:26 AM Malignant neop lasm Results for this INJ LT CDT of overlapping sites procedu re are in of both breasts in the resul ts female, estrogen section. receptor positive ([facility]) documented in this encounter Results NM Breast Sent Node Inj Lt (09/12/2020 11:26 AM CDT) Anatomical Region Laterality Modality Breast Left Nuclear Medicine Specimen (Source) Anatomical Location Collection Method / Collectio n Time Received Time / Laterality Volume Narrative 09/12/2020 11:31 AM CDT These images were obtained during a surg ical procedure. Marcie Ruiz MD RAD NM documented in this encounter Visit Diagnoses Diagnosis Malignant neoplasm of overlapping sites of both breasts in female, estrogen receptor positive ([facility]) documented in this encounter Administered Medications Inactive Administered Medications - up to 3 most recent administrations Medication Order MAR Action Action Date Dose Rate Site technetium TC-99M sodium Given 09/12/2020 11:30 AM 2.13 millicur ies thiosulfate filtered CDT (SULFUR COLLOID) injection 2.13 millicurie 2.13 millicurie, Intradermal, ONCE, On Tue09/12/20 at 1115, For 1 dose, Radiology documented in this encounter
--- OUTSIDE RECORDS SUMMARY | 2022-01-26 21:09 | XMS_ITS | Encounter Summary ---
:1960 Author Organization [employer] Address [address] [place] [address] Care Team Providers Name Role Phone Unavailable Primary Care Provider Unavailable Encounter Details Date Type Department Care Team Description 09/12/2020 Orders Only Initial [facility] [place], [place] [address] Interface provider [phone] [place] [address] Social History Tobacco Use Types Packs/Day Years [...] Phone Visit Oncology Radha Rashid MBBS [address] [facility] N [phone] (Wo rk) 05/20/2022 Appointment Oncology Radha Rashid MBBS [address] [facility] KRYSTEN N [id number] (Wo rk) 05/20/2022 Appointment Chemo Therapy/Infusion Services documented as of this encounter Procedures Procedure Name Priority Date/Time Associated Diagnosis Comme nts EKG 09/12/2020 Results for thi s procedure are in the resu lts section. documented in this encounter Results EKG (09/12/2020) Narrative This result has an attachment that is no t available. Interface Provider EKG documented in this encounter Visit Diagnoses Not on filedocumented in this encounter
--- OUTSIDE RECORDS SUMMARY | 2022-01-26 21:10 | XMS_ITS | Encounter Summary ---
:1960 Author Organization [employer] Address [address] [place] [address] Care Team Providers Name Role Phone Unavailable Primary Care Provider Unavailable Reason for Visit Procedure/Equipment (Routine) - Incomplete Specialty Diagnoses / Procedures Referred By Contact Refer red To Contact Diagnoses Malignant neoplasm of overlapping sites of both breasts in female, estrogen receptor positive (HRC) Macrie Ruiz MD Procedures MM US Breast Seed Loc Lt [address] [place], [place] [address] Referral ID Status Reason Start Date Expiration Date Visits V isits Requested Authorized [id number] Incomplete 08/27/2020 11/26/2021 1 1 Encounter Details Date Type Department Care Team Description 09/12/2020 Ancillary [facility] [address] Marcie Ruiz Malig nant neoplasm Procedure Mammography MD of overlapping [address] [place] [address] [facility] es of [address] breasts in female, [facility], [place], [place] [phone] positive (HRC) [phone] Social History Tobacco Use Types Packs/Day Years Used Date Smoking Tobacco: Former Cigarettes 1 1973 - 1988 Alcohol Use Standard Drinks/Week Comments Yes 14 (1 standard drink = 0.6 oz pure alcoh ol) 8-14 drinks/week Sex Assigned at Date Recorded Not on file documented as of this encounter Plan of Treatment Upcoming Encounters Date Type Specialty Care Team Description 02/11/2022 Phone Visit Oncology Anangur AzarRadha caban MBBS [address] N [phone] (Lindsay marcano) 05/20/2022 Appointment Oncology Harrison AzarRadha caban MBBS [address] N [phone] (Lindsay marcano) 05/20/2022 Appointment Chemo Therapy/Infusion Services documented as of this encounter Procedures Procedure Name Priority Date/Time Associated Diagnosis Comme nts MM US BREAST SEED Routine 09/12/2020 8:29 AM Malignant neoplas m Results for this LOC LT CDT of overlapping sites procedu re are in of both breasts in the resul ts female, estrogen section. receptor positive (HRC) documented in this encounter Results MM US Breast Seed Loc Lt (09/12/2020 8:29 AM CDT) Anatomical Region Laterality Modality Breast Left Ultrasound Specimen (Source) Anatomical Collection Method Collection Time Re ceived Time Location / / Volume Laterality 09/12/2020 7:52 AM CDT Impressions 09/17/2020 8:51 AM CDT Ultrasound guided radioactive seed localization is performed to target grade 2 invasive ductal carcinoma at the 3:00 position 7 cm from the nipple left breast and grade 2 invasive ductal carcinoma 3:00 position 6 cm from the nipple left breas t 1% lidocaine solution was injected super ficially and around the mass at the 3:00 position 6 cm from the nipple. ??A radioactive I-125 seed was placed within the mass. ??After seed placement, there was n o radioactivity detected in the needle. ?? Activity was documented in the breast. An additional radioactive I-125 seed was placed within the mass at the 3:00 position 7 cm from the nipple. ??After seed placement, there was no radioactivity detected in the needle. ?? Activity was documented in the breast. POST PROCEDURE MAMMOGRAM FOR SEED PLACEM ENT: Additional mammographic images confirmed that the seed markers were in good position. ?? IMPRESSION: Satisfactory placement of tw o radioactive seeds in the left breast, one at 3:00 position 6 cm from the nipple and one at the 3:00 position 7 cm from the nipple. Final pathology: FINAL DIAGNOSIS A. ??Breast, left breast, 2 seed localiz ed lumpectomy from 3 o'clock position of breast: - ??Invasive ductal carcinoma, grade 2, ??2 tumors - ??See below for synoptic report - ??E-cadherin staining supports the khalida gnosis B. ??Lymph node, left axillary sentinel lymph, excision: - ??Single benign lymph node C. ??Breast, left breast, additional pos terior margin for medial aspect, excision: - ??Benign breast and adipose tissue D. ??Breast, left breast, additional ant erior margin for medial aspect, excision: - ??Invasive ductal carcinoma extending to the new inked and cauterized margin - ??DCIS extending to the new inked and cauterized margin This is concordant with imaging. Recommendation: Continued surgical consu ltation. Procedure Note Sebastian Fields MD - 09/17/2020 IMPRESSION Ultrasound guided radioactive seed local ization is performed to target grade 2 invasive ductal carcinoma at the 3:00 position 7 cm from the nipple left breast and grade 2 invasive ductal carcinoma 3:00 position 6 cm from the nipple left breast 1% lidocaine solution was injected super ficially and around the mass at the 3:00 position 6 cm from the nipple. A radioactive I-125 seed was placed within the mass. After seed placement, there was no radioactivity detected in the needle. Activity was doc umented in the breast. An additional radioactive I-125 seed was placed within the mass at the 3:00 position 7 cm from the nipple. After seed placement, there was no radioactivity detected in the needle. Activity was documented in the breast. POST PROCEDURE MAMMOGRAM FOR SEED PLACEM ENT: Additional mammographic images confirmed that the seed markers were in good position. IMPRESSION: Satisfactory placement of tw o radioactive seeds in the left breast, one at 3:00 position 6 cm from the nipple and one at the 3:00 position 7 cm from the nipple. Final pathology: FINAL DIAGNOSIS A. Breast, left breast, 2 seed localized lumpectomy from 3 o'clock position of breast: - Invasive ductal carcinoma, grade 2, 2 tumors - See below for synoptic report - E-cadherin staining supports the diagn osis B. Lymph node, left axillary sentinel ly mph, excision: - Single benign lymph node C. Breast, left breast, additional poste rior margin for medial aspect, excision: - Benign breast and adipose tissue D. Breast, left breast, additional anter ior margin for medial aspect, excision: - Invasive ductal carcinoma extending to the new inked and cauterized margin - DCIS extending to the new inked and ca uterized margin This is concordant with imaging. Recommendation: Continued surgical consu ltation. Marcie Ruiz MD RAD RONAK MM Post Mammogram Lt (09/12/2020 8:25 AM CDT) Anatomical Region Laterality Modality Breast Left Mammography Specimen (Source) Anatomical Collection Method Collection Time Re ceived Time Location / / Volume Laterality 09/12/2020 8:02 AM CDT Impressions 09/17/2020 8:51 AM CDT Ultrasound guided radioactive seed localization is performed to target grade 2 invasive ductal carcinoma at the 3:00 position 7 cm from the nipple left breast and grade 2 invasive ductal carcinoma 3:00 position 6 cm from the nipple left breas t 1% lidocaine solution was injected super ficially and around the mass at the 3:00 position 6 cm from the nipple. ??A radioactive I-125 seed was placed within the mass. ??After seed placement, there was n o radioactivity detected in the needle. ?? Activity was documented in the breast. An additional radioactive I-125 seed was placed within the mass at the 3:00 position 7 cm from the nipple. ??After seed placement, there was no radioactivity detected in the needle. ?? Activity was documented in the breast. POST PROCEDURE MAMMOGRAM FOR SEED PLACEM ENT: Additional mammographic images confirmed that the seed markers were in good position. ?? IMPRESSION: Satisfactory placement of tw o radioactive seeds in the left breast, one at 3:00 position 6 cm from the nipple and one at the 3:00 position 7 cm from the nipple. Final pathology: FINAL DIAGNOSIS A. ??Breast, left breast, 2 seed localiz ed lumpectomy from 3 o'clock position of breast: - ??Invasive ductal carcinoma, grade 2, ??2 tumors - ??See below for synoptic report - ??E-cadherin staining supports the khalida gnosis B. ??Lymph node, left axillary sentinel lymph, excision: - ??Single benign lymph node C. ??Breast, left breast, additional pos terior margin for medial aspect, excision: - ??Benign breast and adipose tissue D. ??Breast, left breast, additional ant erior margin for medial aspect, excision: - ??Invasive ductal carcinoma extending to the new inked and cauterized margin - ??DCIS extending to the new inked and cauterized margin This is concordant with imaging. Recommendation: Continued surgical consu ltation. Procedure Note Sebastian Fields MD - 09/17/2020 IMPRESSION Ultrasound guided radioactive seed local ization is performed to target grade 2 invasive ductal carcinoma at the 3:00 position 7 cm from the nipple left breast and grade 2 invasive ductal carcinoma 3:00 position 6 cm from the nipple left breast 1% lidocaine solution was injected super ficially and around the mass at the 3:00 position 6 cm from the nipple. A radioactive I-125 seed was placed within the mass. After seed placement, there was no radioactivity detected in the needle. Activity was doc umented in the breast. An additional radioactive I-125 seed was placed within the mass at the 3:00 position 7 cm from the nipple. After seed placement, there was no radioactivity detected in the needle. Activity was documented in the breast. POST PROCEDURE MAMMOGRAM FOR SEED PLACEM ENT: Additional mammographic images confirmed that the seed markers were in good position. IMPRESSION: Satisfactory placement of tw o radioactive seeds in the left breast, one at 3:00 position 6 cm from the nipple and one at the 3:00 position 7 cm from the nipple. Final pathology: FINAL DIAGNOSIS A. Breast, left breast, 2 seed localized lumpectomy from 3 o'clock position of breast: - Invasive ductal carcinoma, grade 2, 2 tumors - See below for synoptic report - E-cadherin staining supports the diagn osis B. Lymph node, left axillary sentinel ly mph, excision: - Single benign lymph node C. Breast, left breast, additional poste rior margin for medial aspect, excision: - Benign breast and adipose tissue D. Breast, left breast, additional anter ior margin for medial aspect, excision: - Invasive ductal carcinoma extending to the new inked and cauterized margin - DCIS extending to the new inked and ca uterized margin This is concordant with imaging. Recommendation: Continued surgical consu ltation. Marcie MIRANDA RONAK documented in this encounter Visit Diagnoses Diagnosis Malignant neoplasm of overlapping sites of both breasts in female, estrogen receptor positive (HRC) Malignant neoplasm of overlapping sites of both breasts in female, estrogen receptor positive (HRC) documented in this encounter Administered Medications Inactive Administered Medications - up to 3 most recent administrations Medication Order MAR Action Action Date Dose Rate Site lidocaine (XYLOCAINE) 1 % Given 09/12/2020 8:29 AM CDT 10 mL Other injection 10 mL 10 mL, Subcutaneous, ONCE, On Tue09/12/20 at 0845, For 1 dose documented in this encounter
--- OUTSIDE RECORDS SUMMARY | 2022-01-26 21:10 | XMS_ITS | Encounter Summary ---
:1960 Author Organization [facility] [employer] Address [address] [place] [address] Care Team Providers Name Role Phone Unavailable Primary Care Provider Unavailable Reason for Visit Procedure/Equipment (Routine) - Incomplete Specialty Diagnoses / Procedures Referred By Contact Refer red To Contact Procedures Provider, Foreign Images Foreign Image(S) Mammogram [address] [place] [address] Referral ID Status Reason Start Date Expiration Date Visits V isits Requested Authorized [id number] Incomplete 08/21/2020 11/20/2021 1 1 Encounter Details Date Type Department Care Team Description 01/22/2014 Ancillary Procedure [facility]iology PACS Provider, [address] [place] [id number] [address] [place] [address] Social History Tobacco Use Types Packs/Day Years Used Date Smoking Tobacco: Never Assessed Sex Assigned at Date Recorded Not on file documented as of this encounter Plan of Treatment Upcoming Encounters Date Type Specialty Care Team Description 02/11/2022 Phone Visit Oncology Radha Rashid MBBS [address] [facility] N [address] (Wo rk) 05/20/2022 Appointment Oncology Radha Rashid MBBS [address] [facility] N [address] (Wo rk) 05/20/2022 Appointment Chemo Therapy/Infusion Services documented as of this encounter Procedures Procedure Name Priority Date/Time Associated Diagnosis Comme nts FOREIGN IMAGE(S) Routine 01/22/2014 2:00 PM Resul ts for this MAMMOGRAM CDT procedure are i n the results section. documented in this encounter Results Foreign Image(S) Mammogram (01/22/2014 2:00 PM CDT) Specimen (Source) Anatomical Location Collection Method / Collectio n Time Received Time / Laterality Volume Narrative POCT - 08/21/2020 10:06 AM CDT These outside images have been uploaded into PACS. If the results were provided, they will be located in the vel ureña's chart under the Media or Imaging tab. Foreign Images Provider RAD NON-REPORTABLES Performing Organization Address City/State/ZIP Code Phon e Number POCT documented in this encounter Visit Diagnoses Not on filedocumented in this encounter
--- OUTSIDE RECORDS SUMMARY | 2022-01-26 21:10 | XMS_ITS | Encounter Summary ---
:1960 Author Organization [facility] Address [address] [place] [address] Care Team Providers Name Role Phone Unavailable Primary Care Provider Unavailable Reason for Visit Procedure/Equipment (Routine) - Incomplete Specialty Diagnoses / Procedures Referred By Contact Refer red To Contact Procedures Provider, Foreign Images Foreign Image(S) US Biopsy [address] [place] [address] Referral ID Status Reason Start Date Expiration Date Visits V isits Requested Authorized [id number] Incomplete 08/21/2020 11/20/2021 1 1 Encounter Details Date Type Department Care Team Description 08/14/2020 Ancillary Procedure [facility] Radiology PACS Provider, [address] [place] [id number] [address] [place] [address] Social History Tobacco Use Types Packs/Day Years Used Date Smoking Tobacco: Never Assessed Sex Assigned at Date Recorded Not on file documented as of this encounter Plan of Treatment Upcoming Encounters Date Type Specialty Care Team Description 02/11/2022 Phone Visit Oncology Radha Rashid MBBS [address] [facility] N [phone] (Wo rk) 05/20/2022 Appointment Oncology Radha Rashid MBBS [address] [facility] N [address] (Wo rk) 05/20/2022 Appointment Chemo Therapy/Infusion Services documented as of this encounter Procedures Procedure Name Priority Date/Time Associated Diagnosis Comme nts FOREIGN IMAGE(S) US Routine 08/14/2020 2:05 PM Re sults for this BIOPSY CDT procedure are i n the results section. documented in this encounter Results Foreign Image(S) US Biopsy (08/14/2020 2:05 PM CDT) Specimen (Source) Anatomical Location Collection Method / Collectio n Time Received Time / Laterality Volume Narrative POCT - 08/21/2020 10:04 AM CDT These outside images have been uploaded into PACS. If the results were provided, they will be located in the vel ureña's chart under the Media or Imaging tab. Foreign Images Provider RAD NON-REPORTABLES Performing Organization Address City/State/ZIP Code Phon e Number POCT documented in this encounter Visit Diagnoses Not on filedocumented in this encounter
--- OUTSIDE RECORDS SUMMARY | 2022-01-26 21:10 | XMS_ITS | Encounter Summary ---
:1960 Author Organization [employer] Address [address] [place] [address] Care Team Providers Name Role Phone Mai Tiwari PA-C Primary Care Provider Reason for Referral Procedure/Equipment (Routine) - Incomplete Specialty Diagnoses / Procedures Referred By Contact Refer red To Contact Diagnoses Malignant neoplasm of overlapping sites of left breast in female, estrogen receptor positive (HRC) Magdalena Mueller APRN, Procedures MR Breast Bilat W/WO IV Cont Diag TRAFFIC SUPERVISOR [address] [place] [address] Referral ID Status Reason Start Date Expiration Date Visits V isits Requested Authorized [id number] Incomplete 08/21/2020 11/20/2021 1 1 Reason for Visit Reason Onset Date Comments REFERRAL REQUEST 08/20/2020 Encounter Details Date Type Department Care Team Description 08/20/2020 Telephone [place] [id number] Maty Hardwick REFERRAL REQUEST [facility] Tori [facility] maria isabel Potts, RN [address] [place] [address] Social History Tobacco Use Types Packs/Day Years Used Date Smoking Tobacco: Former Cigarettes 1 1973 - 1988 Alcohol Use Standard Drinks/Week Comments Yes 14 (1 standard drink = 0.6 oz pure alcoh ol) 8-14 drinks/week Sex Assigned at Date Recorded Not on file documented as of this encounter Nursing Notes Roxana Bañuelos RN - 08/22/2020 4:05 PM CDT Patient returned call. She does want to proceed with Breast MRI. This was scheduled for 08/27 at 1015am in [place]. Discussed Insurance as well; she states she's been trying to get through to her insurance to ensure she has coverage at [facility]. I did obtain insurance info and left a message with Pt. with tee. Roxana Bañuelos RN - 08/21/2020 3:07 PM CDT Discussed with Radiology, and they do recommend an MRI for further evaluation. I have LVM for patient to call back at her convenience to set up the MRI. Roxana Bañuelos RN - 08/20/2020 3:56 PM CDT Received call from patient, Ayana, asking to be plugged into the [facility] system for a 2nd opinion/transfer of care for her newly diagnosed breast cancer. Ayana presented for a screening mammo the end of July. She was called back for 2 areas of concern. These area's were evaluated and biopsied on 08/14. She received the phone call on Tuesday stating she has a new breast cancer. Upon review of her records in care everywhere, She does have Left IDC in the 3:00 7 cfn and 6 cfn. This cancer is ER and ND+ and HER2-. She was seen by General Surgery at [place] today. Discussed next steps with patient. We will obtain her images. We discussed the possibility of needing a breast MRI, but once her images are uploaded in our system, I will have our radiologists review. I will get back to her hopefully tomorrow, if an MRI is needed. At this time, she is scheduled for a consult on 08/[address] Marcie Ruiz, per the patient's preference. I will have education with her at 12:30. I did obtain the patient's breast/medical/surgical/family history. She does meet criteria for genetics so we discussed having her meet with Genetic Counseling as well. I will schedule this for 09/04 at 11:30 with Manda. The patient has my direct number if she has any other questions; otherwise she knows I will try and reach her with further steps tomorrow. documented in this encounter Plan of Treatment Upcoming Encounters Date Type Specialty Care Team Description 02/11/2022 Phone Visit Oncology Radha Rashid MBBS [address] [facility] Aruna BASHIR N [address] (Wo rk) 05/20/2022 Appointment Oncology Radha Rashid MBBS [address] [facility] Aruna BASHIR N [address] (Wo rk) 05/20/2022 Appointment Chemo Therapy/Infusion Services documented as of this encounter Results (ABNORMAL) MR Breast Bilat W/WO IV Cont Diag (08/27/2020 11:29 AM CDT) Anatomical Region Laterality Modality Breast, Other Bilateral Magnetic Resonance Specimen (Source) Anatomical Collection Method Collection Time Re ceived Time Location / / Volume Laterality 08/27/2020 10:25 AM CDT Impressions 08/27/2020 1:36 PM CDT HISTORY: Newly diagnosed invasive ductal carcinoma, grade 2, at the 3 o'clock position 7 cm from nipple and also at the 3 o'clock position 6 cm from the nipple of the left breast. Evaluate extent of disease. COMPARISONS: Outside mammogram , 07/31/2020, 06/23/2017, 02/12/2016. Left breast ultrasound 08/14/2020. Images from ultrasound-guided left breast biopsy 08/15/2019 TECHNIQUE: Unenhanced and then dynamic e nhanced images of both breasts were obtained after the administration of 9 mL GADOBUTROL 1 MMOL/ML IV SOLN. Exam was reviewed with CAD. FINDINGS: UNENHANCED IMAGES: Scattered fibroglandu lar tissue present. ENHANCED IMAGES: There is bilateral symm etric marked background enhancement. LEFT BREAST: A biopsy clip is contained within an enhancing oval mass located at the 3:30 posterior depth position. This mass measures 1.3 x 1.2 x 1.4 cm (AP by T by SI) demonstrates rapid uptake with w ashout kinetics and likely represents th e biopsied mass labeled 3 o'clock position 7 cm from the nipple on ultrasound. Approximately 3 mm inferior to this mass, at the 4:00 posterior depth position, is a second biopsied enhancing mass measuri ng 1.4 x 0.7 x 1.0 cm. This also demonstrates rapid uptake with washout kinetics. This likely represents the mass labeled 3:00 6 cm from the nipple. Multiple foci of enhancement demonstrating rapid upta ke with washout kinetics. This appears symmetrical compared with the contralateral breast. RIGHT BREAST: Multiple foci of enhanceme nt demonstrating rapid uptake with washout kinetics. This appears symmetrical compared with the contralateral breast. ?? AXILLA: No suspicious axillary lymph nod es. IMPRESSION: ACR BIRADS CATEGORY 6: Malig marty confirmed on previous biopsy. ?? LEFT BREAST: 1. Two biopsies masses at the 3:30 and 4 :00 posterior depth positions corresponding with the known malignancies. These measure 1.3 x 1.2 x 1.4 cm and 1.4 x 0.7 x 1.0 cm. 2. No visualized lymphadenopathy. 3. No other suspicious enhancement in th e left breast. RIGHT BREAST: 1. No suspicious enhancement. RECOMMENDATION AND FOLLOW UP: Surgical consultation. Procedure Note Rocael Antoine MD - 08/27/2020Fo rmatting of this note might be different from the original. IMPRESSION HISTORY: Newly diagnosed invasive ductal carcinoma, grade 2, at the 3 o'clock position 7 cm from nipple and also at the 3 o'clock position 6 cm from the nipple of the left breast. Evaluate extent of disease. COMPARISONS: Outside mammogram , 07/31/2020, 06/23/2017, 02/12/2016. Left breast ultrasound 08/14/2020. Images from ultrasound-guided left breast biopsy 08/15/2019 TECHNIQUE: Unenhanced and then dynamic e nhanced images of both breasts were obtained after the administration of 9 mL GADOBUTROL 1 MMOL/ML IV SOLN. Exam was reviewed with CAD. FINDINGS: UNENHANCED IMAGES: Scattered fibroglandu lar tissue present. ENHANCED IMAGES: There is bilateral symm etric marked background enhancement. LEFT BREAST: A biopsy clip is contained within an enhancing oval mass located at the 3:30 posterior depth position. This mass measures 1.3 x 1.2 x 1.4 cm (AP by T by SI) demonstrates rapid uptake with washout kinetics and likely represents the biopsied mass labeled 3 o'clock position 7 cm from the nipple on ultrasound. Approximately 3 mm inferior to this mass, at the 4:00 posterior depth position, is a second biopsied enhancing mass measuring 1.4 x 0.7 x 1.0 cm. This also demonstrates rapid uptake with washout kinetics. This likely represents the mass labeled 3:00 6 cm from the nipple. Multiple foci of enhancement demonstrating rapid uptake with washout kinetics. This appears symmetric al compared with the contralateral breast. RIGHT BREAST: Multiple foci of enhanceme nt demonstrating rapid uptake with washout kinetics. This appears symmetrical compared with the contralateral breast. AXILLA: No suspicious axillary lymph nod es. IMPRESSION: ACR BIRADS CATEGORY 6: Oswaldoira marty confirmed on previous biopsy. LEFT BREAST: 1. Two biopsies masses at the 3:30 and 4 :00 posterior depth positions corresponding with the known malignancies. These measure 1.3 x 1.2 x 1.4 cm and 1.4 x 0.7 x 1.0 cm. 2. No visualized lymphadenopathy. 3. No other suspicious enhancement in th e left breast. RIGHT BREAST: 1. No suspicious enhancement. RECOMMENDATION AND FOLLOW UP: Surgical consultation. Magdalena Mueller GROUND WATER TECHNICIAN, TRAFFIC SUPERVISOR RAD MRI documented in this encounter Visit Diagnoses Diagnosis Malignant neoplasm of overlapping sites of left breast in female, estrogen receptor positive (HRC) - Primary Malignant neoplasm of overlapping sites of left breast in female, estrogen receptor positive (HRC) documented in this encounter Care Teams Veneer Manufacturer Relationship Specialty Start Date End Date Mai Tiwari PA-C PCP - General Physician Rigging Foreman 09/23/20 [address] [address] documented as of this encounter
--- OUTSIDE RECORDS SUMMARY | 2022-01-26 21:10 | XMS_ITS | Encounter Summary ---
:1960 Author Organization [facility] [place] Address [address] [place] [address] Care Team Providers Name Role Phone Unavailable Primary Care Provider Unavailable Reason for Referral Procedure/Equipment (Routine) - Incomplete Specialty Diagnoses / Procedures Referred By Contact Refer red To Contact Diagnoses Malignant neoplasm of overlapping sites of both breasts in female, estrogen receptor positive (HRC) Torrey Thorne MD Procedures MM US Breast Seed Loc Lt [address] [place], [place] [address] Referral ID Status Reason Start Date Expiration Date Visits V isits Requested Authorized [id number] Incomplete 08/27/2020 11/26/2021 1 1 Procedure/Equipment (Routine) - Incomplete Specialty Diagnoses / Procedures Referred By Contact Refer red To Contact Diagnoses Malignant neoplasm of overlapping sites of both breasts in female, estrogen receptor positive (HRC) Torrey Thorne MD Procedures NM Breast Sent Node Inj Lt [address] [place], [place] [address] Referral ID Status Reason Start Date Expiration Date Visits V isits Requested Authorized [id number] Incomplete 08/27/2020 11/26/2021 6 6 Procedure/Equipment (Routine) - Incomplete Specialty Diagnoses / Procedures Referred By Contact Refer red To Contact Diagnoses Malignant neoplasm of overlapping sites of both breasts in female, estrogen receptor positive (HRC) Torrey Thorne MD Procedures Case Request OR - General/Vascular Surg: left breast seed localized lumpectomy with sentinel lymph node biopsy [address] [place], [place] [address] Referral ID Status Reason Start Date Expiration Date Visits V isits Requested Authorized [id number] Incomplete 08/27/2020 11/26/2021 1 1 Reason for Visit Reason Comments CONSULT Encounter Details Date Type Department Care Team Description 08/27/2020 Office Visit Specialty Center [address] Aruna Thorne MD Malignant neoplasm of General Surgery 39[address] [facility] sites of [address] [facility] both breasts in [address] [place], [place], [place] [address] receptor positive [address] (HRC) (Primary Dx) [phone] Social History Tobacco Use Types Packs/Day Years Used Date Smoking Tobacco: Former Cigarettes 1 1973 - 1988 Alcohol Use Standard Drinks/Week Comments Yes 14 (1 standard drink = 0.6 oz pure alcoh ol) 8-14 drinks/week Sex Assigned at Date Recorded Not on file documented as of this encounter Last Filed Vital Signs Vital Sign Reading Time Taken Comments Blood Pressure 130/72 08/27/2020 1:13 PM CDT Pulse 73 08/27/2020 1:13 PM CDT Temperature - - Respiratory Rate - - Oxygen Saturation - - Inhaled Oxygen Concentration - - Weight 87.5 kg (193 lb) 08/27/2020 1:13 PM CDT Height 154.9 cm (5' 1) 08/27/2020 1:13 PM CDT Body Mass Index 36.47 08/27/2020 1:13 PM CDT documented in this encounter Progress Notes Peyton Kim RN - 08/27/2020 1:00 PM CDT Pre-operative teaching completed per General Surgery department protocol. Reviewed surgery packet and post-operative instructions for left breast seed localized lumpectomy and SLN bx. Advised patient to stop eating after midnight the evening before surgery and informed drinking clear liquids (water and Gatorade) up until 4 hours prior to surgery is acceptable. Medication changes: Hold aspirin 7 days prior to surgery Pain Mgmt: Ibuprofen (Advil, Motrin) 400-600 mg every 6 hours PRN or Acetaminophen (Tylenol) 650-1000 mg every 6 hours PRN. May alternate between Ibuprofen and Acetaminophen every 3 hours PRN. Icing also encouraged 20 minutes out of every hour while awake. Remove outer bandages: 24 hrs after surgery. May shower at that time. Answered all questions. Patient verbalized understanding and will call with any further questions orconcerns. Torrey Thorne MD - 08/27/2020 12:00 AM CDT NAME: LINUS DONNELLY CSN: [id number] CLINIC NOTE DATE OF SERVICE: 08/27/2020 : 1960 IDENTIFICATION: Linus Donnelly is a 60-year-old woman with a newly diagnosed left breast cancer. The patient presents herself for surgical evaluation. HPI: On routine screening mammography at [facility], 2 masses were identified in the left breast. The right breast was negative. Additional diagnostic views showed 2 irregular nodular asymmetries in the left breast 3 o'clock position. Left breast ultrasound identified 2 corresponding masses in the 3 o'clock position measuring 1.4 cm and 0.6 cm. The masses were 0.8 cm apart from each other. Axillary lymph nodes appeared normal. Ultrasound-guided core needle biopsy was performed on both 3 o'clock masses. Both lesions showed invasive ductal carcinoma, grade 2, ER/WA positive, HER-2 negative. Bilateral breast MRI was done today in our system and results are pending. The patient has had no previous breast problems. She has had no previous breast biopsies. The patient has a family history of breast cancer in a paternal cousin diagnosed in her 40s, and a niece diagnosed with ovarian cancer at age 28. Patient is scheduled for a genetics consultation on September 04. PAST MEDICAL HISTORY: Anxiety, asthma, hypertension, status post hysterectomy. Her ovaries remain inplace. SOCIAL HISTORY: The patient is single. She lives in her home with her cats. She is mother to one 42-year-old daughter. Patient is accompanied today by a friend, Delvin. HABITS: Former smoker. Current alcohol consumption. PHYSICAL EXAM: GENERAL: This is a comfortable-appearing adult woman. VITAL SIGNS: Blood pressure 130/72, pulse is 73, BMI is 36. BREASTS: Breasts are symmetric without skin or nipple changes except for the ecchymosis from the recent biopsy on the left. On palpation, the left breast is without distinct mass or abnormality. There are some palpable biopsy changes, but the cancer itself is not palpable. Right breast too is without distinct mass or abnormality. The axillae are negative for adenopathy bilaterally. ASSESSMENT: Newly diagnosed clinical stage I left breast cancer. PLAN: The patient's pathology report, the natural history of breast cancer, the multidisciplinary approach to the treatment of breast cancer, and all surgical options were fully discussed. The patient would like to proceed with scheduling a left breast seed-localized lumpectomy and sentinel lymph nodebiopsy. The surgery indications, risks, benefits, and recovery were all reviewed. Patient understands MRI results could lead to additional workup, and that surgical recommendations could change. The patient will be pursuing a genetics consultation on September 04. She will meet with Radiation Oncology andMedical Oncology in consultation postoperatively. [place]. All questions were answered. TORREY THORNE MD [facility]/S /[id number] documented in this encounter Plan of Treatment Upcoming Encounters Date Type Specialty Care Team Description 02/11/2022 Phone Visit Oncology Radha Rashid MBBS [address] [place] Aruna [place] N [address] (Lindsay marcano) 05/20/2022 Appointment Oncology Radha Rashid MBBS [address] [place] Patricia hamida Andrade Aruna [place] N [address] (Wo rk) 05/20/2022 Appointment Chemo Therapy/Infusion Services documented as of this encounter Results NM Breast Sent Node Inj Lt (09/12/2020 11:26 AM CDT) Anatomical Region Laterality Modality Breast Left Nuclear Medicine Specimen (Source) Anatomical Location Collection Method / Collectio n Time Received Time / Laterality Volume Narrative 09/12/2020 11:31 AM CDT These images were obtained during a surg ical procedure. Torrey Thorne MD RAD NM MM US Breast Seed Loc Lt (09/12/2020 [...] with imaging. Recommendation: Continued surgical consu ltation. Torrey Thorne MD RAD [facility] 2019 Novel Coronavirus (COVID-19) (09/10/2020 2:33 PM CDT) [facility] Method Time Signature COVID-19 Not Not 09/11/2020 [facility] Interpretation Detected Detected 4:51 AM CENTRAL LAB CDT Source Nares, left 09/11/2020 [facility] and right 4:51 AM CENTRAL LAB CDT Specimen Anatomical Collection Method Collection Time Receive d Time (Source) Location / / Volume Laterality Swab (Source Non-blood 09/10/2020 2:33 PM 2:43 Required) Collection / CDT PM CDT Unknown Narrative [facility] - 09/11/2020 4:51 AM CDT Test performed by Jacquard Loom Heddles Tier Mediated Amplification. TMA has been shown to be equivalent to commercial real-time PCR t ests. This test has been authorized by the FDA under an Emergency Use Authorization (EUA) for use by authorized laboratories. Torrey Thorne MD LAB_1 Performing Organization Address City/State/ZIP Code Phon e Number [facility] [address] [address] documented in this encounter Visit Diagnoses Diagnosis Malignant neoplasm of overlapping sites of both breasts in female, estrogen receptor positive (HRC) - Primary Malignant neoplasm of overlapping sites of both breasts in female, estrogen receptor positive (HRC) Malignant neoplasm of overlapping sites of both breasts in female, estrogen receptor positive (HRC) documented in this encounter
--- OUTSIDE RECORDS SUMMARY | 2022-01-26 21:10 | XMS_ITS | Encounter Summary ---
:1960 Author Organization [facility] Address [address] [place] [address] Care Team Providers Name Role Phone Unavailable Primary Care Provider Unavailable Reason for Visit Procedure/Equipment (Routine) - Incomplete Specialty Diagnoses / Procedures Referred By Contact Refer red To Contact Procedures Provider, Foreign Images Foreign Image(S) Mammogram [address] [place] [address] Referral ID Status Reason Start Date Expiration Date Visits V isits Requested Authorized [id number] Incomplete 08/21/2020 11/20/2021 1 1 Encounter Details Date Type Department Care Team Description 07/31/2020 Ancillary Procedure [facility] Radiology PACS Provider, [address] [address] [address] [place] [address] Social History Tobacco Use Types Packs/Day Years Used Date Smoking Tobacco: Never Assessed Sex Assigned at Date Recorded Not on file documented as of this encounter Plan of Treatment Upcoming Encounters Date Type Specialty Care Team Description 02/11/2022 Phone Visit Oncology Radha Rashid MBBS [address] [facility] N [id number] (Wo rk) 05/20/2022 Appointment Oncology Radha Rashid MBBS [address] [facility] N [address] (Wo rk) 05/20/2022 Appointment Chemo Therapy/Infusion Services documented as of this encounter Procedures Procedure Name Priority Date/Time Associated Diagnosis Comme nts FOREIGN IMAGE(S) Routine 07/31/2020 2:00 PM Resul ts for this MAMMOGRAM CDT procedure are i n the results section. documented in this encounter Results Foreign Image(S) Mammogram (07/31/2020 2:00 PM CDT) Specimen (Source) Anatomical Location Collection Method / Collectio n Time Received Time / Laterality Volume Narrative POCT - 08/21/2020 10:07 AM CDT These outside images have been uploaded into PACS. If the results were provided, they will be located in the vel ureña's chart under the Media or Imaging tab. Foreign Images Provider RAD NON-REPORTABLES Performing Organization Address City/State/ZIP Code Phon e Number POCT documented in this encounter Visit Diagnoses Not on filedocumented in this encounter
--- OUTSIDE RECORDS SUMMARY | 2022-01-26 21:10 | XMS_ITS | Encounter Summary ---
:1960 Author Organization [employer] Address [address] [place] [address] Care Team Providers Name Role Phone Unavailable Primary Care Provider Unavailable Reason for Visit Procedure/Equipment (Routine) - Incomplete Specialty Diagnoses / Procedures Referred By Contact Refer red To Contact Diagnoses Malignant neoplasm of overlapping sites of left breast in female, estrogen receptor positive (HRC) Magdalena Mueller, FRINGE KNOTTER, Procedures MR Breast Bilat W/WO IV Cont Diag BARYTES GRINDER [address] [place] [address] Referral ID Status Reason Start Date Expiration Date Visits V isits Requested Authorized [id number] Incomplete 08/21/2020 11/20/2021 1 1 Encounter Details Date Type Department Care Team Description 08/27/2020 [facility] [place] Magdalena Mueller Malignan t neoplasm Procedure [place] [id number] [facility] KNOTTER, BARYTES GRINDER of overlapping Radiology [place] [address] [address] sites of left [address] breast in female, Drive [place], [place] [address] positive (HRC) [id number] Social History Tobacco Use Types Packs/Day Years Used Date Smoking Tobacco: Former Cigarettes 1 1973 - 1988 Alcohol Use Standard Drinks/Week Comments Yes 14 (1 standard drink = 0.6 oz pure alcoh ol) 8-14 drinks/week Sex Assigned at Date Recorded Not on file documented as of this encounter Progress Notes Roxana Bañuelos, RN - 08/27/2020 10:15 AM CDT This patient is new to [facility] and Krysten Mccall(see referral note dated from 08/20/20). She was evaluated by Dr. Ruiz today. As her Nurse navigator, I did go over recent MRI results with the patient. She's pleased this will not change her surgery decision. She will meet with Genetic counseling next week, but plans moving forward will not change. BRIAN Nichols; I had difficulty adding in her PCP (from [facility]). I'm so sorry for all ofthe confusion! documented in this encounter Plan of Treatment Upcoming Encounters Date Type Specialty Care Team Description 02/11/2022 Phone Visit Oncology Radha Rashid MBBS [address] [facility] [place] [address] ([place]) 05/20/2022 Appointment Oncology Radha Rashid MBBS [address] [facility] [place] [address] (Lindsay marcano) 05/20/2022 Appointment Chemo Therapy/Infusion Services documented as of this encounter Procedures Procedure Name Priority Date/Time Associated Diagnosis Comme nts MR BREAST BILAT Routine 08/27/2020 11:29 AM Malignant neoplasm Results for this W/WO IV CONT DIAG CDT of overlapping sites pr ocedure are in of left breast in the result s female, estrogen section. receptor positive (HRC) documented in this encounter Results (ABNORMAL) MR Breast Bilat [...] nod es. IMPRESSION: ACR BIRADS CATEGORY 6: Malira ferguson confirmed on previous biopsy. ?? LEFT BREAST: [...] Evaluate extent of disease. COMPARISONS: Outside mammogram 1, 07/31/2020, 06/23/2017, 02/12/2016. Left breast ultrasound 08/14/2020. [...] AND FOLLOW UP: Surgical consultation. Magdalena Mueller FRINGE KNOTTER, BARYTES GRINDER RAD MRI documented in this encounter Visit Diagnoses Diagnosis Malignant neoplasm of overlapping sites of left breast in female, estrogen receptor positive (HRC) documented in this encounter Administered Medications Inactive Administered Medications - up to 3 most recent administrations Medication Order MAR Action Action Date Dose Rate Site 0.9% sodium chloride bolus 100 mL Started 08/27/2020 11:11 AM CDT 100 mL 100 mL, Intravenous, Administer over 1 Hours, ONCE, On Tue08/27/20 at 1130, For 1 dose gadobutrol (GADAVIST) 1 MMOL/ML injectio n 9 mL Given 08/27/2020 11:12 AM CDT 9 mL 9 mL, Intravenous, ONCE, On Tue08/27/20 at 1130, For 1 dose sodium chloride 0.9% injection 20 mL Given 08/27/2020 11:12 AM CDT 20 mL 20 mL, Intravenous, ONCE, On Tue08/27/20 at 1130, For 1 dose documented in this encounter
--- OUTSIDE RECORDS SUMMARY | 2022-01-26 21:10 | XMS_ITS | Encounter Summary ---
:1960 Author Organization [employer] Address [address] [place] [address] Care Team Providers Name Role Phone Unavailable Primary Care Provider Unavailable Reason for Referral (Routine) - Closed Specialty Diagnoses / Procedures Referred By Contact Refer red To Contact Procedures Marcie Thorne MD ECG 12 Lead Inpatient [address] [place], [place] [address] Referral ID Status Reason Start Date Expiration Date Visits Requ ested Visits Authorized [id number] Closed 09/12/2020 12/12/2021 1 1 Reason for Visit Auth/Cert Specialty Diagnoses / Procedures Referred By Contact Refer red To Contact Diagnoses Malignant neoplasm of overlapping sites of both breasts in female, estrogen receptor positive (HRC) Procedures left breast seed localized lumpectomy with sentinel lymph node biopsy Referral ID Status Reason Start Date Expiration Date Visits Requ ested Visits Authorized [id number] 1 1 Encounter Details Date Type Department Care Team Description 09/12/2020 Hospital Encounter [facility] Marcie Thorne Malignant neoplasm Room of overlapping [address] [facility] sites o f [address] breasts in female, [place], [place] [id number] positive (HRC) [phone] Social History Tobacco Use Types Packs/Day Years Used Date Smoking Tobacco: Former Cigarettes 1 1973 - 1988 Alcohol Use Standard Drinks/Week Comments Yes 14 (1 standard drink = 0.6 oz pure alcoh ol) 8-14 drinks/week Sex Assigned at Date Recorded Not on file documented as of this encounter Last Filed Vital Signs Vital Sign Reading Time Taken Comments Blood Pressure 139/79 09/12/2020 2:17 PM CDT Pulse 72 09/12/2020 1:50 PM CDT Temperature 36.5 ??C (97.7 ??F) 09/12/2020 2:17 PM CDT Respiratory Rate 18 09/12/2020 2:17 PM CDT Oxygen Saturation 93% 09/12/2020 2:17 PM CDT Inhaled Oxygen Concentration - - Weight 88 kg (194 lb) 09/12/2020 9:46 AM CDT Height - - Body Mass Index 36.66 08/27/2020 1:13 PM CDT documented in this encounter Medications at Time [...] 14 days. documented as of this encounter Progress Notes Roxana Bañuelos RN - 09/12/2020 4:07 PM CDT See detailed phone note re: discussion with patient. Patient informed of results. I will mail her a hard copy of the report. Patient is scheduled for re- excision next week. Yarelis Soares RN - 09/12/2020 2:56 PM CDT Phase 2 RN Notified per okay for D'C home once pt is able to maintain 02 sats at baseline of >82% R/A. Pt weaned off 02 at 1450, pt unable to maintain 02 sat above 82% at this time, 02 replaced via NC 2L, will endorse to oncoming RN to continue to wean. Otherwise remain WNL and on monitors. at bedside. N/v decreased able to tolerate P.O. no s/s of distress noted. documented in this encounter H&P Notes Marcie Thorne MD - 09/12/2020 11:40 AM CDT Surgery Update for Preop History and Physical For 09/12/2020 scheduled procedure Update to H&P includes: Patient and/or family denies any health changes since the H&P This patient has been evaluated by me today and has been found to be a suitable candidate for surgery. Marcie Thorne MD 09/12/2020 Source Note - Vani Gallagher MD - 09/09/2020 12:00 AM CDT documented in this encounter Procedure Notes Piedad Taylor PA-C - 09/12/2020 3:32 PM CDT [facility] Brief Operative Progress Note Surgery Date: 09/12/2020 Surgeon(s) and Role: * Marcie Thorne MD - Primary * Piedad Taylor PA-C - Assisting Pre-op Diagnosis: * Malignant neoplasm of overlapping sites of both breasts in female, estrogen receptor positive (HRC) [C50.811, C50.812, Z17.0] Post-op Diagnosis: * Malignant neoplasm of overlapping sites of both breasts in female, estrogen receptor positive (HRC) [C50.811, C50.812, Z17.0] Procedure(s) (LRB): left breast 2 seed localized lumpectomy with sentinel lymph node biopsy (Left) EBL: 5 ml Specimens: ID Type Source Tests Collected by Time Destination 1 : LEFT Breast 2 seed localized lumpectomy from 3 o'clock position of breast. Short superior, long lateral Tissue Breast, left SURGICAL PATHOLOGY Marcie Thorne MD 09/12/2020 1238 2 : LEFT Axillary [place] Lymph Node Tissue Lymph node, sentinel SURGICAL PATHOLOGY Marcie Thorne MD 09/12/2020 1250 3 : LEFT Breast additional posterior margin for medial aspect. single superior double posterior Tissue Breast, left SURGICAL PATHOLOGY Marcie Thorne MD 09/12/2020 1302 4 : LEFT Breast additional anterior margin for medial aspect. single superior double anterior TissueBreast, left SURGICAL PATHOLOGY Marcie Thorne MD 09/12/2020 1308 Complications / Findings: None Piedad Taylor PA-C Marcie Thorne MD - 09/12/2020 12:00 AM CDT NAME: AYANA DONNELLY CSN: [id number] OPERATIVE REPORT DATE OF SURGERY: 09/12/2020 : 1960 SURGEON: MARCIE THORNE MD PREOPERATIVE DIAGNOSIS: Breast left breast cancer. POSTOPERATIVE DIAGNOSIS: Breast left breast cancer. PROCEDURE: Left breast 2 seed localized lumpectomy with sentinel lymph node injection mapping and deep axillary lymph node biopsy. TEST SPECIALIST: Piedad Taylor PA-C. There was no qualified nursing surgical services director available to assist. ODESSA Taylor was needed to provide operative exposure, to assist in hemostasis and to suture. ANESTHESIA: General. INDICATION FOR OPERATION: Patient is a 60-year-old woman with a newly diagnosed left breast cancer. She has 2 cancer nodules adjacent to 1 another in the 3 o'clock position of the breast and each has the radioactive seed placed preoperatively. After discussing surgical options, the patient would like to proceed with left breast 2 seed localized lumpectomy and sentinel lymph node biopsy. Informed consent was obtained. OPERATIVE PROCEDURE: After the induction of general anesthesia, patient was positioned supine with arms abducted. Following limited sterile prep, 2 mL of technetium and 2 mL of Lymphazurin were injected separately in the retroareolar location on the left. The breast was massaged and we proceeded with complete sterile prep and drape. Using the Neoprobe as a guide, the point of maximal radioactivity was noted in the area of the 2 seeds in the 3 o'clock position of the left breast. A gently curved skinincision was made here. Soft tissue was divided down toward the level of the seeds. A generous lumpectomy specimen was excised from the palpable biopsy changes and the 2 radioactive seeds. The specimenwas freed and oriented for pathology. Specimen radiograph confirmed 2 clips and 2 seeds within the specimen. The specimen was sent to the lab. Hemostasis was assured. A damp Ray-Courtney was placed in the wound. We proceeded with the sentinel lymph node biopsy. Again using the Neoprobe as a guide, the point of maximal radioactivity was noted in the low anterior axilla. A small transverse skin incision wasmade here and soft tissue was dissected down to fascia, which was incised. Using the Neoprobe, the radioactive sentinel node was identified. There was no significant blue staining. The sentinel node was dissected free from surrounding tissues using electrocautery and was fully excised. The specimen was sent to the lab. There was no significant radioactivity remaining within the axilla. There were no suspicious nodes by palpation. No blue nodes. Hemostasis was assured. The pathologist called into theroom to let us know that the 2 cancer nodules were seen in the lumpectomy specimen. The larger nodule had widely clear margins. The smaller nodule in the medial aspect of the specimen was close to the anterior and posterior margins. Using electrocautery, additional 1 cm thick slice of breast tissue was excised from the anterior lumpectomy margin medially. A 2nd additional piece of breast tissue was excised from the posterior aspect of the lumpectomy margin medially. Both were oriented for pathology and sent. Hemostasis was assured. The wounds were irrigated and dried. Wounds were closed with interrupted 3-0 Vicryl in deep dermis, running 4-0 Vicryl subcuticular stitch for skin. Steri-Strips and renetta ssings were applied. The patient tolerated the procedure well. FINDINGS: 1.Gross sectioning of lumpectomy specimen showed the 2 cancer nodules. The smaller nodule in the medial aspect of the specimen was closed to the anterior and posterior margins. Additional anterior and posterior margin were therefore excised and gross margins were then clear. Final pathology is pending. 2.1 sentinel lymph node, pathology pending. MARCIE THORNE MD [facility]/S /[id number] documented in this encounter Plan of Treatment Upcoming Encounters Date Type Specialty Care Team Description 02/11/2022 Phone Visit Oncology Radha Rashid MBBS [address] [facility] [address] (Wo rk) 05/20/2022 Appointment Oncology Radha Rashid MBBS [address] [facility] [place] [address] (Wo rk) 05/20/2022 Appointment Chemo Therapy/Infusion Services documented as of this encounter Procedures Procedure Name Priority Date/Time Associated Diagnosis Comme nts SURGICAL PATHOLOGY Routine 09/12/2020 12:38 Malignant neoplasm Results for this PM CDT of overlapping sites procedu re are in of both breasts in the resul ts female, estrogen section. receptor positive (HRC) ONCOTYPE DX BREAST Routine 09/12/2020 12:02 Resul ts for this RECURRENCE SCORE PM CDT procedure a re in the results section. BREAST BIOPSY WITH 09/12/2020 11:33 Malignant neoplasm RADIOACTIVE SEED AM CDT of overlapping sites LOCALIZATION & of both breasts in SENTINEL LYMPH NODE female, estrogen BIOPSY receptor positive (HRC) Case Notes [id number] Injected at [address] Thorne. LUCY RN. ECG 12 LEAD INPATIENT Routine 09/12/2020 9:56 AM CDT documented in this encounter Results Surgical Path (09/12/2020 12:38 PM CDT) Component Value Ref Test Analysis Performed At [facility] gist Range Method Time Signature Case Report Surgical Pathology ?Case: [id number] ? 09/15/2020 [facility] Authorizing Provider: ??Marcie Duarte MD ?Collected: ? 09/12/2020 1238 ? 3:10 PM LABO RATORY Ordering Location: ? [facility] ?? Received: ?09/12/2020 1246 ? CDT Pathologist: ? Juanito White MD ? Specimens: ?? A) - Breast, l eft, LEFT Breast 2 seed localized lumpectomy from 3 o'clock position of ? breast. S hort superior, long lateral ? B) - Lymp h node, sentinel, LEFT Axillary [place] Lymph Node ? C) - [place] [address], left, LEFT Breast additional posterior margin for medial aspect. single ? superior double posterior ? D) - [address], left, LEFT Breast additional anterior margin for medial aspect. single ? superior double anterior ? FINAL DIAGNOSIS A. Breast, left breast, 2 se ed localized lumpectomy from 3 o'clock position of breast: 09/15/2020 [facility] Electronically Invasive ductal carcinoma, grade 2, 2 tumors 3:10 PM LABORATORY signed by Christopher, See below for synoptic report CDT Juanito Valles MD on E-cadherin staining supports the diagnosis 09/15/2020 at 3:10 PM B. Lymph node, left axillary sentinel lymph, excision: Single benign lymph node C. Breast, left breast, paradise tional posterior margin for medial aspect, excision: Benign breast and adipose tissue D. Breast, left breast, paradise tional anterior margin for medial aspect, excision: Invasive ductal carcinoma extending to the new inked and cau terized margin DCIS extending to the new inked and cauterized margin Comment: Select slides reviewed by SHAYNE. Synoptic Report INVASIVE CARCINOMA OF THE BR EAST: Resection ??(INVASIVE CARCINOMA OF THE BREAST: COMPLETE EXCISION - All Specimens) 09/15/2020 [facility] 3:10 PM LABORATORY 8th Edition - Protocol posted: 05/30/2019 CDT SPECIMEN ?? Procedure: ?Excision (less than total mastectomy) ?? Specimen Laterality: ?Left TUMOR ?? Tumor Site: ?Clock position ?? : ?3 o'clock Histologic Type: ?Invasive carcinoma of no special type (ductal) Glandular (Acinar) / Tubular Differentiation: ?Score 3 Nuclear Pleomorphism: ?Score 2 Mitotic Rate: ?Score 1 Overall Grade: ?Grade 2 (scores of 6 or 7) Tumor Size: ?Greatest d imension of largest invasive focus (Millimeters): 17 mm Tumor Focality: ?Multiple foci of invasive carcinoma ?? Number of Foci: ?2 ? Sizes of Individual Foci (Millimeters): ?17, 10 m m Ductal Carcinoma In Situ (DCIS): ?Present ?? : ?Negative for extensive intraductal component (EIC ) ?? Size (Extent) of DCIS: ? Number of Blocks with DCIS: ?3 ? Number of Blocks Examined: ?21 ?? Architectural Patterns: ?Cribriform ?? Nuclear Grade: ?Grade II (intermediate) ?? Necrosis: ?Present, focal (small foci or single cell necrosis) Lobular Carcinoma In Situ (LCIS): ?Not identified Tumor Extent: ? Lymphovascular Invasion: ?Not identified Dermal Lymphovascular Invasion: ?No skin present Microcalcifications: ?Not identified Treatment Effect in the Breast: ?No known presurgical t herapy MARGINS Invasive Carcinoma Margins: ?Positive for invasive carc inoma ?? Positive Margin(s): ?Anterior ? : ?Unifocal DCIS Margins: ?Positive for DCIS ?? Positive Margin(s): ?Anterior ? : ?Unifocal ?? Distance from Other Margins: ? Medial Margin (Millimeters): ?<1 mm LYMPH NODES Regional Lymph Nodes: ?Uninvolved by tumor cells ?? Total Number of Lymph Nodes Examined: ?1 ?? Number of [place] Nodes Examined: ?1 PATHOLOGIC STAGE CLASSIFICATION (pTNM, AJCC 8th Edition) ?? TNM Descriptors: ?m (multiple foci of invasive carcinom a) Primary Tumor (pT): ?pT1c Regional Lymph Nodes Modifier: ?(sn): [place] node(s) evaluated. Regional Lymph Nodes (pN): ?pN0 Comment(s) Comment(s): ?The patien t's outside needle core biopsy is not available for review Clinical Malignant 09/15/2020 [facility] Information neoplasm of 3:10 PM LABORATORY overlapping CDT sites of both breasts in female, estrogen receptor positive (HRC) Microscopic Microscopic 09/15/2020 [facility] Description examination is 3:10 PM LABORATORY performed. CDT Special Stains The stain controls have been reviewed and stain appr opriately. 09/15/2020 [facility] 3:10 PM LABORATORY CDT Gross A: 09/15/2020 [facility] Description The specimen is received malvin for immediate gross and labeled with the patient's name and Breast, left, LEFT Breast 2 seed localized lumpectomy from 3 o'clock position of breast. Short superior, long 3:10 PM LABORATORY lateral. The specimen consi sts of a 41 g, 7 x 7 x 3.5 cm left breast lumpectomy specimen. A short stitch landeros the superior position and a long stitch landeros the lateral position. The specimen is inked CDT as follows: Superior-orange, inferior-yellow, medial-green, lateral-blue, anterior-red, posterior-black. The specimen is serially sectioned from medial to lateral to reveal 2 separate tumor masses by approximately 1 cm. The medial tumor has an favian rated, smiley-pink, nodular appearance and measures 1 x 0.8 x 0.8 cm. The tumor is located 0.2 cm from the anterior margin and 0.9 cm from the posterior and medial margins. The tumor is 2 cm from the infer ior margin and greater than 2.5 cm from the superior margin. A biopsy clip and a radioactive seed are identified in the center of the tumor. The seed is removed and sent to [facility]. Due to the shape of the biopsy marker, the section of tumor towards nearest anterior margin is disrupted. The margin is submitted separately. The lateral tumor measures 1 .7 x 1.4 x 1.2 cm and has an indurated, smiley-ramsey, well-demarcated appearance. The tumor is 0.7 cm from the anterior margin and 1.1 cm from the posterior margin. The tumor is 1.7 cm from the superior mar gin and 2 cm from the inferior margin. A circular, metal biopsy clip and a second radioactive seed are present in the center of the tumor. The seed is removed and sent to nuclear Medicine, per protocol. Further sectioning reveals a dditional discrete nodule, separate from the tumors, abutting the superior margin. The nodule measures 0.5 x 0.3 x 0.3 cm and is located 1.5 cm from the nearest tumor. Cross- sections through the remaind er of the specimen are grossly unremarkable. Dielectric Press Operator sections are submitted in formalin at 1:20 PM, 09/12/2020. Summary of sections: A1 -2 m edial margin, perpendicular sections; A3 -5 one level with tumor (A3 anterior and posterior margins nearest tumor ( from tumor due to biopsy clip); A4 medial tumor ( no margins); A5 superior delmi f of level); A6-8 trisected level with medial tumor; A9 separate nodule at superior margin; A10 lateral tumor with anterior margin; A 11 lateral tumor with posterior margin; A12 lateral tumor with poste rior and superior margins; A13 graphic art sales representative inferior margin; A14 graphic art sales representative lateral margin. AW B: The specimen is received in formalin and labeled with the patient's name and Lymph node, sentinel, LEFT Axillary [place] Lymph Node. The specimen consists of 3.5 x 2 x 2 cm aggregate of adipose tissu e containing single lymph no de measuring 1.5 x 0.8 x 0.8 cm. The node is trisected and submitted in 1 block. AW C: The specimen is received in formalin and labeled with the patient's name and Breast, left, LEFT Breast additional posterior margin for medial aspect. single superior double posterior. The specimen con sists of a 2.9 x 2 x 1.1 cm portion of fibroadipose tissue. There is a single stitch marking the superior position and a double stitch marking the new posterior margin. The new posterior margin is inked black and the old margin is inked blue. The superior edge is inked orange and the specimen is serially sectioned from medial to lateral. Entirely sequentially submitted the from medial to lateral in 3 blocks. In formalin at 1:02 PM, 09/12/2020, per [facility]. AW D: The specimen is received in formalin and labeled with the patient's name and Breast, left, LEFT Breast additional anterior margin for medial aspect. single superior double anterior. The specimen consi sts of 2 portions of fibrofa tty tissue sutured together, measuring 3.7 x 2.6 x 1 cm. There is a double stitch marking the new anterior margin and a single stitch marking the superior position. The new anterior margin is i nked black and the old margin is inked blue. The lateral edge is inked orange and the specimen is serially sectioned from superior to inferior. Entirely submitted from superi or to inferior in 4 blocks. In formalin at 1:08 PM, 021, per epic. AW Intraoperative A: 09/15/2020 [facility] Consultation Gross Intraoperative Diagnos is: Left breast lumpectomy -- 2 tumors located and 1 small induration superior; not definite tumor. Larger nodule has margins free (greater than 5 mm). Smaller nodule close 3:10 PM LABORATORY to anterior margin at medial end. Posterior margin probably okay, but also close. (Result called into OR 17 by RWS at 1:05 PM, 09/12/2020) CDT Embedded Images 09/15/2020 [facility] 3:10 PM LABORATORY CDT Specimen Anatomical Collection Method Collection Time Receive d Time (Source) Location / / Volume Laterality Tissue BREAST STRUCTURE / 09/12/2020 12:38 09/12 Unknown PM CDT 12:46 PM CDT Tissue specimen SENTINEL LYMPH 09/12/2020 12:50 2020 1:34 (specimen) NODE BIOPSY / PM CDT PM CDT Unknown Tissue specimen BREAST STRUCTURE / 09/12/2020 1:02 PM 09/12/2020 1:34 (specimen) Unknown CDT PM CDT Tissue specimen BREAST STRUCTURE / 09/12/2020 1:08 PM 09/12/2020 1:34 (specimen) Unknown CDT PM CDT Marcie Thorne MD LAB PATHOLOGY Performing Organization Address City/State/ZIP Code Phon e Number [facility] [address] [place] [address] Oncotype Dx Breast Recurrence Score (09/12/2020 12:02 PM CDT) [facility] Method Time Signature Oncotype Dx See Scanned 10/10/2020 [employer] Breast Report 2:21 PM CDT [employer] Score Specimen Anatomical Collection Method Collection Time Receive d Time (Source) Location / / Volume Laterality Tissue Non-blood 09/12/2020 12:02 10/03/2020 Collection / PM CDT 12:02 PM CDT Unknown Narrative This result has an attachment that is no t available. Radha APPLE LAB_1 Performing Organization Address City/State/ZIP Code Phon e Number [facility] AT [facility] [employer] [facility] [address] [facility] William Hector Kennedy, [place] [address] [place] [address] ECG 12 Lead Inpatient (09/12/2020 9:56 AM CDT) P athologist Signature Ventricular Rate 73 BPM [facility] Atrial Rate 73 BPM [facility] P-R Interval 144 ms [facility] QRS Duration 86 ms [facility] QT 414 ms [facility] QTc 456 ms [facility] P Cosby 28 degrees [facility] R [place] 8 degrees [facility] T [place] 42 degrees [facility] Specimen (Source) Anatomical Collection Method Collection Time Re ceived Time Location / / Volume Laterality 09/12/2020 9:56 AM CDT Narrative [facility] - 09/12/2020 10:16 AM CDT Sinus rhythm Normal ECG No previous ECGs available Confirmed by ALLYSON MOSHER ([id number]) on 02/2021 10:16:08 AM Procedure Note Allyson Mosher MD - 09/12/2020 Sinus rhythm Normal ECG No previous ECGs available Confirmed by ALLYSON MOSHER ([id number]) on 02/2021 10:16:08 AM Marcie Thorne MD PN ECG ORDERABLES Performing Organization Address City/State/ZIP Code Phon e Number [facility] [address] [place] [address] documented in this encounter Visit Diagnoses Diagnosis Malignant neoplasm of overlapping sites of both breasts in female, estrogen receptor positive (HRC) documented in this encounter Admitting Diagnoses Diagnosis Malignant neoplasm of overlapping sites of breast in female, estrogen receptor positive (HRC) documented in this encounter Administered Medications Inactive Administered Medications - up to 3 most recent administrations Medication Order MAR Action Action Date Dose Rate Site bupivacaine-epinephrine Given 09/12/2020 12:55 PM 40 mL Other (Comment) (SENSORCAINE) 0.25% CDT -[id number] injection ONCE PRN, Starting on Tue09/12/20 at 1255, Until Tue09/12/20 at 1807, Intra-op fentaNYL (SUBLIMAZE) injection 25-50 mcg 25-50 mcg, Intravenous, [id number], Pain, Procedure, Starting on Tue09/12/20 at 1027, Until Tue09/12/20 at 1807, For 2 doses, As directed by anesthesiologist, Pre-op fentaNYL (SUBLIMAZE) injection 25-50 mcg 25-50 mcg, Intravenous, [id number], Other, Moderate to Severe Pain (pain score 5 and above) in the immediate postop period when faster on-s et, short acting agent is desired., Starting on Tue09/12/20 at 102 7, Until Tue09/12/20 at 1807, Administer every 5 minutes as needed, to a maximum cumulative dose of 250 mcg. For patients with a regional, spinal, or local anesth etic, may give for anticipated pain as the anesthetic wears off., PACU/Recovery isosulfan blue (LYMPHAZURIN) injection Given 09/12/2020 12:09 PM CDT 2 mL ONCE PRN, Starting on Tue09/12/20 at 1209, Until Tue09/12/20 at 1807, Intra-op lactated ringers infusion Started 09/12/2020 10:12 AM CDT 25 mL/hr 25 mL/hr 25 mL/hr, Intravenous, CONTINUOUS, Starting on Tue09/12/20 at 0945, Administer on all preop surgery patients, ages 12 and older, unless specified differently in the Protocol for Preop Initiation of IV fluids Order Set., Pre-op lidocaine PF (XYLOCAINE) 1 % injection Given 09/12/2020 10:12 AM CDT 0.2 mL 0.1-0.3 mL 0.1-0.3 mL, Intradermal, ONCE, On Tue09/12/20 at 0945, For 1 dose, Lidocaine to be used for IV starts unless patient refuses., Pre-op lidocaine PF (XYLOCAINE) 1 % injection 0 .1-0.3 mL 0.1-0.3 mL, Intradermal, PRN, Other, for additional IV starts, Starting on Tue09/12/20 at 0917, Pre-op midazolam (VERSED) injection 1-2 mg 1-2 mg, Intravenous, [id number], Sedation, Anxiety, Proc edure, Starting on Tue09/12/20 at 1027, Until Tue09/12/20 at 1807, As directe d by anesthesiologist MAX Dose 2mg, Pre-op ondansetron (ZOFRAN) injection 4 mg 4 mg, Intravenous, Q4H PRN, Nausea, Vomiting, Starting on Tue09/12/20 at 1027, Until Tue09/12/20 at 1807, If multiple medications are ordered for nausea or vomiting - administer in the following priority based on medications ordered, effectiveness and availability: ondanset etienne (ZOFRAN) > prochlorPERAZINE (COMPAZINE) > diphenhydrAMINE (BENADRYL) > hydrOXYzi ne HCl (VISTARIL)> ePHEDrine > scopolamine (TRANSDERM-SCOP)., PACU/Recovery documented in this encounter Active and Recently Administered Medications Times are shown in CDT. Scheduled Medication Order 09/10/2020 09/11/2020 09/12/2020 ceFAZolin (ANCEF) 1 g in dextrose 50 ml IVPB (COMPLETED) 1215 (Given - Provider: Uriel Gonzalez APRN, LAZARO) 1 g, Intravenous, Administer over 30 Min utes, ONCE, On Tue09/12/20 at 0945, For 1 dose, Infuse within 60 minutes prior to incision. Re-dose 1 gram IV every 4 hours after initial dose until incision clos ed. Re-dose if more than 1.5L of blood l oss. Pharmacy may adjust for renal insufficiency., Pre-op lidocaine PF (XYLOCAINE) 1 % injection 0.1-0.3 mL (COMPLETED) 1012 (Given - Provider: Nelida Suarez RN) 0.1-0.3 mL, Intradermal, ONCE, On 02/22 at 0945, For 1 dose, Lidocaine to be used for IV starts unless patient refuses., Pre-op Continuous Medication Order 09/10/2020 09/11/2020 09/12/2020 lactated ringers infusion 1012 ( Started - Provider: Nelida Suarez, COLT)1332 (Anesthesia Fluid - Provider: Uriel Gonzalez APRN, LAZARO) 25 mL/hr, Intravenous, at 25 mL/hr, CONT INUOUS, Starting on Tue09/12/20 at 0945, Administer on all preop surgery patients, ages 12 and older, unless specified differently in the Protocol for Preop Initiation of IV fluids Order Set., Pre-op PRN Medication Order 09/10/2020 09/11/2020 09/12/2020 bupivacaine-epinephrine (SENSORCAINE) 0.25% -[id number] injection 1255 (Given - Provider: Marcie Thorne MD - Comment: LEFT breast and axila) ONCE PRN, Starting on Tue09/12/20 at 1255, Intra-op fentaNYL (SUBLIMAZE) injection 25-50 mcg 25-50 mcg, Intravenous, [id number], Pain, Procedure, Starting on Tue09/12/20 at 1027, For 2 doses, As directed by anesthesiologist, Pre-op fentaNYL (SUBLIMAZE) injection 25-50 mcg 25-50 mcg, Intravenous, [id number], Other, Moderate to Severe Pain (pain score 5 and above) in the immediate postop period when faster on-set, short acting agent is desired., Starting on Tue09/12/20 at 10 27, Administer every 5 minutes as needed , to a maximum cumulative dose of 250 mcg. For patients with a regional, spinal, or local anesthetic, may give for anticipated pain as the anesthetic wears off., PACU/Recovery isosulfan blue (LYMPHAZURIN) injection 1209 (Given - Provider: Marcie Thorne MD - Comment: op site) ONCE PRN, Starting on Tue09/12/20 at 1209, Intra-op lidocaine PF (XYLOCAINE) 1 % injection 0.1-0.3 mL 0.1-0.3 mL, Intradermal, PRN, Other, for additional IV starts, Starting on Tue09/12/20 at 0917, Pre-op midazolam (VERSED) injection 1-2 mg 1-2 mg, Intravenous, [id number], Sedation, Anxiety, Procedure, Starting on Tue09/12/20 at 1027, As directed by anesthesiologist MAX Dose 2mg, Pre-op ondansetron (ZOFRAN) injection 4 mg 4 mg, Intravenous, Q4H PRN, Nausea, Vomi ting, Starting on Tue09/12/20 at 1027, If multiple medications are ordered for nausea or vomiting - administer in the following priority based on medications orde red, effectiveness and availability: ond ansetron (ZOFRAN) > prochlorPERAZINE (COMPAZINE) > diphenhydrAMINE (BENADRYL) > hydrOXYzine HCl (VISTARIL)> ePHEDrine > scopolamine (TRANSDERM-SCOP)., PACU/Recovery documented in this encounter
--- OUTSIDE RECORDS SUMMARY | 2022-01-26 21:10 | XMS_ITS | Encounter Summary ---
:1960 Author [facility] Address [address] [place] [address] Care Team Providers Name Role Phone Unavailable Primary Care Provider Unavailable Reason for Visit Procedure/Equipment (Routine) - Incomplete Specialty Diagnoses / Procedures Referred By Contact Refer red To Contact Procedures Provider, Foreign Images Foreign Image(S) Mammogram [address] [place] [address] Referral ID Status Reason Start Date Expiration Date Visits V isits Requested Authorized [id number] Incomplete 08/21/2020 11/20/2021 1 1 Encounter Details Date Type Department Care Team Description 08/14/2020 Ancillary Procedure [facility] Radiology PACS Provider, [address] [place] [id number] [address] [place] [address] Social History Tobacco Use Types Packs/Day Years Used Date Smoking Tobacco: Never Assessed Sex Assigned at Date Recorded Not on file documented as of this encounter Plan of Treatment Upcoming Encounters Date Type Specialty Care Team Description 02/11/2022 Phone Visit Oncology Radha Rashid MBBS [address] [facility] N [id number] (Wo rk) 05/20/2022 Appointment Oncology Radha Rashid MBBS [address] [facility] N [address] (Wo rk) 05/20/2022 Appointment Chemo Therapy/Infusion Services documented as of this encounter Procedures Procedure Name Priority Date/Time Associated Diagnosis Comme nts FOREIGN IMAGE(S) Routine 08/14/2020 2:00 PM Resul ts for this MAMMOGRAM CDT procedure are i n the results section. documented in this encounter Results Foreign Image(S) Mammogram (08/14/2020 2:00 PM CDT) Specimen (Source) Anatomical Location [...]
--- OUTSIDE RECORDS SUMMARY | 2022-01-26 21:10 | XMS_ITS | Encounter Summary ---
:1960 Author Organization [facility] Address [address] [place] [address] Care Team Providers Name Role Phone Unavailable Primary Care Provider Unavailable Encounter Details Date Type Department Care Team Description 09/04/2020 [facility] Marichuy Dunn, Encounter f or nonprocreative genetic counseling and testing (Primary Dx); Encounter [facility] Malignant neoplasm of overlapping sites of left breast in female, estrogen receptor positive (HRC); Center Oncology [address] [place] [facility] his tory of breast cancer; [facility] [address] Family history of ovarian cancer; [address] [facility] [facility], Family history of brain cancer; [facility] [id number] Family history of uterine fibroid [place], [place] [phone] (Work) [phone] Social History Tobacco Use Types Packs/Day Years [...] documented as of this encounter Progress Notes Marichuy Dunn, MARKO - 09/04/2020 11:30 AM CDT GENETIC COUNSELING CONSULT NOTE Date of Service: 09/04/2020 Referring provider: Marcie Ruiz MD Ayana Donnelly took part in a in-person consult on 09/04/2020 for hereditary cancer risk genetic counseling due to a personal history of breast cancer and a family history of breast, ovarian and brain cancer. Relevant Medical History: Ayana is a 60 y.o. female. 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 Treatment will include a lumpectomy on 09-12-2020 and a postoperative discussion about radiation/chemotherapy/endocrine therapy. She had her first menstrual period at age 11, her first child at age 17, and is postmenopausal (age 45). Ayana has her ovaries and fallopian tubes in place but had her uterus removed in 2005 due to fibroids. She has a history of normal PAP smears. She reports about 10 years of oral contraceptive use and she has not had hormone replacement therapy. She has had clinical breast exams and mammograms; her most recent mammogram on 07-31-2020 needed additional follow-up. Subsequent imaging and biopsy detected the above breast cancer. She reported today that she had a colonoscopy at age 50 that was normal. Follow- up was recommended in 10 years; she was encouraged to schedule one this year. Family History: A detailed family history relevant to cancer was obtained. The family history is per the patient's report. Please see the scanned genetic pedigree under Media tab for complete details. The pedigree contains individuals without a cancer history or mentioned below. Children: Ayana has one daughter who is 42 and has no history of cancer. Her daughter has a daughter(18) and son (14) who are healthy. Siblings: Ayana has three sisters (58, 54, 51) and one brother (52) and a half- brother (32) through her father. None of her siblings have had cancer, but two of her sisters have had hysterectomies due to uterine fibroids. ?? Her niece through her sister (54) has a recent diagnosis of ovarian cancer at age 28. It is not certain if she has had genetic testing. Maternal relatives: ?? Ayana's mother is 86 and has no history of cancer. She does have a history of uterine fibroids and had a hysterectomy. Her mother has two sisters and two brothers. None of these siblings have had cancer (two are living and two have ). ?? Her maternal grandmother and her maternal grandfather at unknown ages and had no known cancer. Paternal relatives: ?? Ayana's father had brain cancer (type unknown) at 62 and at 64. He had four sisters and four brothers. ?? One paternal aunt had breast cancer (diagnosis age unknown) and is in her late 70's. ?? A paternal first cousin through an unaffected aunt had breast cancer in her 30's and is currentlyin her late 40's. ?? Her paternal grandmother at 80 and had no known cancer. ?? Her paternal grandfather had brain cancer (type unknown) at 60 and at 70. She has Thai ancestry on her maternal side; and Brazilian ancestry on her paternal side. There is noknown Ashkenazi Zoroastrian ancestry. Counseling: The majority of cancers are sporadic. Occasionally, breast cancer risk can cluster in families due to shared genetic and environmental risk factors. It is estimated that 5 to 10% of breast cancers are caused by inheriting a mutation within a single cancer susceptibility gene, such as the BRCA1 or BRCA2 genes. ??? We reviewed the BRCA1 and BRCA2 genes. Pathogenic variants/mutations in these genes cause Hereditary Breast and Ovarian Cancer Syndrome (HBOC). HBOC typically presents with multiple family members diagnosed with breast cancer before age 50 and/or ovarian cancer. Other cancer risks associated with HBOC include male breast cancer, prostate cancer, pancreatic cancer, and melanoma. There are a numberof medical management options for individuals who carry a BRCA mutation, including increased surveillance, chemopreventive medications, and risk-reducing surgeries. ??? Other genes are associated with an increased risk to develop breast cancer. Like BRCA1 and BRCA2, some are associated with a high risk of breast cancer (e.g. TP53, PTEN, CDH1). These other high-risk genes are linked to other hereditary cancer syndromes and therefore may also increase the risk for cancer other than breast. Many of the hereditary cancer syndromes have well established cancer risks and management recommendations/guidelines for screening and prevention. ??? Some genes are associated with a moderate risk to develop breast cancer (e.g MARLON, CHEK2, and PALB2). They are well studied, but not associated with a hereditary cancer syndrome. They may increase the risk of other cancers. Management guidelines for screening and prevention are established, but limited. ??? Cancer treatment: PARP inhibitors are a group of chemotherapy drugs being targeted for patients who carry who carry an inherited pathogenic variant in the BRCA1 or BRCA2 genes. Therefore, genetic testing of the BRCA genes could help provide treatment options for these patients. PARP inhibitors arebeing studied in patients that carry inherited pathogenic variants in other genes as well. Brain cancer The risk for brain cancer is not typically inherited. They usually occur sporadically in people withno family history of tumors. However, they can rarely occur in people with certain genetic syndromessuch as Neurofibromatosis type 1, Familial Adenomatous Polyposis, Li Fraumeni syndrome, and TuberousSclerosis. Neurofibromatosis type 1 (NF1) is caused by mutation in the NF1 gene. This condition is characterized by caf??-au-lait spots (light brown spots on the skin), neurofibromas (benign tumors of the nerves), freckling of the underarms and/or groin, and development of certain tumors. Women with neurofibromatosis are also at increased risk for breast cancer. Other features of NF1 can include large head size, skeletal differences, and learning disabilities. Li-Fraumeni syndrome (LFS) is caused by a mutation in the TP53 gene. Cancers associated with LFS include: sarcomas, breast cancer, brain cancer, leukemia, lymphoma, adrenocortical carcinoma, and others. The hallmark cancer of LFS is sarcoma, while the most frequent cancer is female breast. Individualswith LFS are at increased risk for developing multiple primary cancers in their lifetime. Familial Adenomatous Polyposis (FAP) is a condition caused by mutations in the APC gene. Individualswith FAP typically have many (more than 100) adenoma type polyps in the colon and significantly increased risk for colon and other cancers. Other cancers associated with FAP include thyroid, pancreatic, gastric, duodenal cancers, and rarely, brain tumors. Tuberous sclerosis complex (TSC)is a genetic disorder characterized by the growth of numerous noncancerous (benign) tumors in many parts of the body. These tumors can occur in the skin, brain, kidneys,and other organs, in some cases leading to significant health problems. Tuberous sclerosis complex also causes developmental problems, and the signs and symptoms of the condition vary from person to person. Mutations in the TSC1 or TSC2 gene can cause tuberous sclerosis complex. Risk Assessment: The patient is at increased risk to carry an additional underlying hereditary cancer predisposition gene. ??? Based on her personal and family history, Ayana meets current National Comprehensive Cancer Network (NCCN) guidelines and insurance criteria for genetic testing of high-penetrance breast and/or ovarian cancer susceptibility genes (including BRCA1, BRCA2 and MARLON, BARD1, BRIP1, CDH1, CDKN2A, CHEK2, MSH2, MLH1, MSH6, PMS2, EPCAM, NBN, NF1, PALB2, PTEN, RAD51C, RAD51D, STK11 and TP53) (NCCN v 2.2020). Risk to relatives: The inheritance patterns associated with pathogenic variants in these genes were reviewed. Most of these gene follow an autosomal dominant pattern of inheritance. This mean that if an individual carries a pathogenic variant, each of his/her children has a 50% chance that he/she also inherited the same pathogenic variant. ??? Additionally, full siblings and parents have a 50% chance of carrying the same pathogenic variant ??? Extended relatives may also carry the same variant Testing: Based on today's discussion, Ayana opted to pursue genetic testing. She anticipates results would inform medical management and provide information for her family members. A blood sample will be obtained and sent to [facility] for the BRCAPlus test. Results are expected in about 7-10 days after the sample is received by the testing lab. ?? BRCAPlus (8 genes): MARLON, BRCA1, BRCA2, CDH1, CDK4, CHEK2, PALB2, PTEN, and TP53. ?? We discussed that after these results are back, Ayana has the option to reflex or add other geneswithout additional charge based on family history. Ayana indicated that she would like a custom cancer panel. CustomNext-Cancer (41 genes): a combination of BRCANext-Expanded (MARLON, BARD1, BRCA1, BRCA2, BRIP1, CDH1, CHEK2, DICER1, EPCAM, MLH1, MSH2, MSH6, NBN, Nf1, PALB2, PMS2, PTEN, RAD51C, RAD51D, RECQL, SMARCA4, STK11, TP53) and BrainTumorNext (AIP, ALK, APC, CDKN1B, CDKN2A, DICER1, EPCAM, LZTR1, MEN1, MLH1, MSH2, MSH6, NBN, Nf1, Nf2, PHOX2, BPMS2, POT1, XAEGY1V, PTCH1, PTEN, SMARCA4, SMARCB1, SMARCE1, SUFU, TP53, TSC1, TSC2, and VHL). ??? Ayana indicated she would like a blood draw. As such, she has an appointment today at the [facility] lab. ?? The consent form was reviewed and patient was given a copy today. She verbally consented to genetic testing. Genetic Counseling: The patient was counseled about the following: ?? The prevalence, distribution, and genetics of sporadic vs. inherited forms of cancer ?? Concepts of inheritance ?? Genetic testing options, benefits and limitations including multi-gene panels. ?? Implications of a positive and negative result and possibility of inconclusive (variant of unknown significance) result. ?? Treatment and risk management guidelines for individuals who are mutation positive for hereditarycancer syndromes including increased screening and prophylactic surgery. ?? Risk of passing a mutation to children and importance of sharing genetic testing results with at-risk relatives ?? Fees involved in genetic testing and counseling ?? Psychological implications of test results (benefits and challenges) ?? JOSH (Genetic Information and Non-discrimination Act) Follow-up: Ayana will be notified of results via a phone follow-up genetic counseling appointment. Results are expected in about 7-10 days for the BRCAPlus genes and 2-3 weeks for the expanded custom testing. We discussed that the STAT testing for the BRCAPlus test may be back in time before her surgery on September 12 but that I cannot guarantee that results will be back. Ayana verbalized understanding of this. Written materials about the information discussed during our visit were shared today and a copy of this clinic note was mailed to Ayana. She was encouraged to contact me with any further questions, concerns, or family history updates and was given my contact information. Approximately 90 minutes was spent in counseling time and genetic test coordination. Manda Dunn MS, [facility] Licensed, certified genetic counselor documented in this encounter Plan of Treatment Upcoming Encounters Date Type Specialty Care Team Description 02/11/2022 Phone Visit Oncology Radha Rashid MBBS [address] [facility] [place]ASHIR N [id number] (Wo rk) 05/20/2022 Appointment Oncology Radha Rashid MBBS [address] [facility] [place] N [address] (Wo rk) 05/20/2022 Appointment Chemo Therapy/Infusion Services documented as of this encounter Results Miscellaneous Genetic Test (09/04/2020 12:34 PM CDT) P athologist Signature Result: See Scanned 09/17/2020 REFERENCE LAB Report 1:55 PM CDT (NON-INTERFACE D) Specimen Anatomical Collection Method / Collection Time Recei eva Time (Source) Location / Volume Laterality Blood Venipuncture / 09/04/2020 12:34 3:16 Unknown PM CDT PM CDT Narrative This result has an attachment that is no t available. Marichuy Dunn [facility] LAB_1 Performing Organization Address City/State/ZIP Code Phon e Number REFERENCE LAB (NON-INTERFACED) REFERENCE LAB (NON-INTERFACED) DO NOT MAIL documented in this encounter Visit Diagnoses Diagnosis Encounter for nonprocreative genetic cou nseling and testing - Primary Malignant neoplasm of overlapping sites of left breast in female, estrogen receptor positive (HRC) Family history of breast cancer Family history of malignant neoplasm of breast Family history of ovarian cancer Family history of malignant neoplasm of ovary Family history of brain cancer Family history of other specified malign ant neoplasm Family history of uterine fibroid Family history of other genitourinary di seases documented in this encounter
--- OUTSIDE RECORDS SUMMARY | 2022-01-26 21:10 | XMS_ITS | Encounter Summary ---
:1960 Author Organization [employer] Address [address] [place] [address] Care Team Providers Name Role Phone Unavailable Primary Care Provider Unavailable Encounter Details Date Type Department Care Team Description 09/10/2020 Lab Visit [facility] Malign ant neoplasm of Laboratory overlapping sites of both [address] [facility] breasts [place], [place] [address] receptor positive (HRC) [phone] Social History Tobacco Use Types Packs/Day Years [...] Visit Oncology Radha Rashid MBBS [address] [facility] N [phone] (Wo rk) 05/20/2022 Appointment Oncology Radha Rashid MBBS [address] [facility] [place], N [id number] (Wo rk) 05/20/2022 Appointment Chemo Therapy/Infusion Services documented as of this encounter Procedures Procedure Name Priority Date/Time Associated Diagnosis Comme nts 2019 NOVEL Routine 09/10/2020 2:33 PM Malignant neoplasm Res ults for this CORONAVIRUS CDT of overlapping sites procedu re are in of both breasts in the resul ts female, estrogen section. receptor positive (HRC) documented in this encounter Results 2019 Novel Coronavirus (COVID-19) (09/10/2020 2:33 PM CDT) [facility] Method Time Signature COVID-19 Not Not 09/11/2020 [facility] Interpretation Detected Detected 4:51 AM CENTRAL LAB CDT Source Nares, left 09/11/2020 [facility] and right 4:51 AM CENTRAL LAB CDT Specimen Anatomical Collection Method Collection Time Receive d Time (Source) Location / / Volume Laterality Swab (Source Non-blood 09/10/2020 2:33 PM 2:43 Required) Collection / CDT PM CDT Unknown Narrative [facility] - 09/11/2020 4:51 AM CDT Test performed by [employer] Mediated Amplification. TMA has been shown to be equivalent to commercial real-time PCR t ests. This test has been authorized by the FDA under an Emergency Use Authorization (EUA) for use by authorized laboratories. Marcie Ruiz MD LAB_1 Performing Organization Address City/State/ZIP Code Phon e Number [facility] [address] [address] documented in this encounter Visit Diagnoses Diagnosis Malignant neoplasm of overlapping sites of both breasts in female, estrogen receptor positive (HRC) documented in this encounter
--- OUTSIDE RECORDS SUMMARY | 2022-01-26 21:10 | XMS_ITS | Encounter Summary ---
:1960 Author Organization [facility] Address [address] [place] [address] Care Team Providers Name Role Phone Unavailable Primary Care Provider Unavailable Reason for Visit Procedure/Equipment (Routine) - Incomplete Specialty Diagnoses / Procedures Referred By Contact Refer red To Contact Procedures Provider, Foreign Images Foreign Image(S) Mammogram [address] [place] [address] Referral ID Status Reason Start Date Expiration Date Visits V isits Requested Authorized [id number] Incomplete 08/21/2020 11/20/2021 1 1 Encounter Details Date Type Department Care Team Description 01/10/2013 Ancillary Procedure [facility] Radiology PACS Provider, [address] [place] [id number] [address] [place] [address] Social History Tobacco Use Types Packs/Day Years Used Date Smoking Tobacco: Never Assessed Sex Assigned at Date Recorded Not on file documented as of this encounter Plan of Treatment Upcoming Encounters Date Type Specialty Care Team Description 02/11/2022 Phone Visit Oncology Radha Rashid MBBS [address] [facility] N [address] (Wo rk) 05/20/2022 Appointment Oncology Radha Rashid MBBS [address] [facility] N [address] (Wo rk) 05/20/2022 Appointment Chemo Therapy/Infusion Services documented as of this encounter Procedures Procedure Name Priority Date/Time Associated Diagnosis Comme nts FOREIGN IMAGE(S) Routine 01/10/2013 2:00 PM Resul ts for this MAMMOGRAM CDT procedure are i n the results section. documented in this encounter Results Foreign Image(S) Mammogram (01/10/2013 2:00 PM CDT) Specimen (Source) Anatomical Location [...]
--- OUTSIDE RECORDS SUMMARY | 2022-01-26 21:10 | XMS_ITS | Encounter Summary ---
:1960 Author Organization [facility] Address [address] [place] [address] Care Team Providers Name Role Phone Unavailable Primary Care Provider Unavailable Reason for Visit Procedure/Equipment (Routine) - Incomplete Specialty Diagnoses / Procedures Referred By Contact Refer red To Contact Procedures Provider, Foreign Images Foreign Image(S) Mammogram [address] [place] [address] Referral ID Status Reason Start Date Expiration Date Visits V isits Requested Authorized [id number] Incomplete 08/21/2020 11/20/2021 1 1 Encounter Details Date Type Department Care Team Description 02/06/2015 Ancillary Procedure [facility] Radiology PACS Provider, [address] [place] [id number] [address] [place] [address] Social History Tobacco Use Types Packs/Day Years Used Date Smoking Tobacco: Never Assessed Sex Assigned at Date Recorded Not on file documented as of this encounter Plan of Treatment Upcoming Encounters Date Type Specialty Care Team Description 02/11/2022 Phone Visit Oncology Radha Rashid MBBS [address] [facility] N [address] (Wo rk) 05/20/2022 Appointment Oncology Radha Rashid MBBS [address] [facility] N [address] (Wo rk) 05/20/2022 Appointment Chemo Therapy/Infusion Services documented as of this encounter Procedures Procedure Name Priority Date/Time Associated Diagnosis Comme nts FOREIGN IMAGE(S) Routine 02/06/2015 2:00 PM Resul ts for this MAMMOGRAM SEAT NAILER procedure are i n the results section. documented in this encounter Results Foreign Image(S) Mammogram (02/06/2015 2:00 PM SEAT NAILER) Specimen (Source) Anatomical Location Collection Method / Collectio n Time Received Time / Laterality Volume Narrative POCT - 08/21/2020 10:05 AM CDT These outside images have been uploaded into PACS. If the results were provided, they will be located in the vel ureña's chart under the Media or Imaging tab. Foreign Images Provider RAD NON-REPORTABLES Performing Organization Address City/State/ZIP Code Phon e Number POCT documented in this encounter Visit Diagnoses Not on filedocumented in this encounter
--- OUTSIDE RECORDS SUMMARY | 2022-01-26 21:10 | XMS_ITS | Encounter Summary ---
:1960 Author Organization [facility] Address [address] [place] [address] Care Team Providers Name Role Phone Unavailable Primary Care Provider Unavailable Reason for Visit Procedure/Equipment (Routine) - Incomplete Specialty Diagnoses / Procedures Referred By Contact Refer red To Contact Procedures Provider, Foreign Images Foreign Image(S) US Breast 39[address] [place] [address] Referral ID Status Reason Start Date Expiration Date Visits V isits Requested Authorized [id number] Incomplete 08/21/2020 11/20/2021 1 1 Encounter Details Date Type Department Care Team Description 08/14/2020 Ancillary Procedure RC Radiology PACS Provider, [address] [place] [address] 39[address] [place] [address] Social History Tobacco Use Types Packs/Day Years Used Date Smoking Tobacco: Never Assessed Sex Assigned at Date Recorded Not on file documented as of this encounter Plan of Treatment Upcoming Encounters Date Type Specialty Care Team Description 02/11/2022 Phone Visit Oncology Radha Rashid MBBS [address] [facility] N [phone] (Wo rk) 05/20/2022 Appointment Oncology Radha Rashid MBBS [address] [facility] N [address] (Wo rk) 05/20/2022 Appointment Chemo Therapy/Infusion Services documented as of this encounter Procedures Procedure Name Priority Date/Time Associated Diagnosis Comme nts FOREIGN IMAGE(S) US Routine 08/14/2020 2:10 PM Re sults for this BREAST CDT procedure are i n the results section. documented in this encounter Results Foreign Image(S) US Breast (08/14/2020 2:10 PM CDT) Specimen (Source) Anatomical Location Collection [...]
--- OUTSIDE RECORDS SUMMARY | 2022-01-26 21:10 | XMS_ITS | Encounter Summary ---
:1960 Author Organization [employer] Address [address] [place] [address] Care Team Providers Name Role Phone Unavailable Primary Care Provider Unavailable Reason for Visit Procedure/Equipment (Routine) - Incomplete Specialty Diagnoses / Procedures Referred By Contact Refer red To Contact Diagnoses Malignant neoplasm of overlapping sites of both breasts in female, estrogen receptor positive (HRC) Marcie Ruiz MD Procedures MM Breast Specimen [address] [place], [place] [address] Referral ID Status Reason Start Date Expiration Date Visits V isits Requested Authorized [id number] Incomplete 08/27/2020 11/26/2021 1 1 Encounter Details Date Type Department Care Team Description 09/12/2020 Ancillary [facility] 38[address] Marcie Ruiz Malig nant neoplasm Procedure Mammography MD of overlapping 3850 [facility] [address] [place] es of [address] breasts in female, [place], [place] [address] positive (HRC) [phone] Social History Tobacco Use Types Packs/Day Years [...] Team Description 02/11/2022 Phone Visit Oncology Radha Rashid, ZECHARIAH [address] Tabith[address] DELATORRE, Aruna N [address] (Wo rk) 05/20/2022 Appointment Oncology Radha RashidZECHARIAH [address], Aruna N [address] (Wo rk) 05/20/2022 Appointment Chemo Therapy/Infusion Services documented as of this encounter Procedures Procedure Name Priority Date/Time Associated Diagnosis Comme nts MM BREAST SPECIMEN Routine 09/12/2020 3:32 PM Malignant neopla sm Results for this CDT of overlapping sites procedu re are in of both breasts in the resul ts female, estrogen section. receptor positive (HRC) documented in this encounter Results MM Breast Specimen (09/12/2020 3:32 PM CDT) Anatomical Region Laterality Modality Breast Digital Radiography Specimen (Source) Anatomical Collection Method Collection Time Re ceived Time Location / / Volume Laterality 09/12/2020 3:31 PM CDT Impressions 09/12/2020 3:35 PM CDT The left breast surgical specimen radiog raph demonstrates tissue containing the 2 radioactive seeds and 2 biopsy site emeli ers corresponding to the known areas of malignancy. The patient's surgeon Dr. Carlos banks was notified of the findings shortly after the radiograph was perforby speaki ng by telephone with the operating room nurse.rse. Procedure Note Sebastian Fields MD - 09/12/2020 IMPRESSION The left breast surgical specimen radiog raph demonstrates tissue containing the 2 radioactive seeds and 2 biopsy site markers corresponding to the known areas of malignancy. The patient's surgeon Dr. Ruiz was notified of the findings shortly after t he radiograph was perforby speaking by telephone with the operating room nurse.rse. Marcie Ruiz MD RAD [facility] documented in this encounter Visit Diagnoses Diagnosis Malignant neoplasm of overlapping sites of both breasts in female, estrogen receptor positive (HRC) documented in this encounter
--- OUTSIDE RECORDS SUMMARY | 2022-01-26 21:10 | XMS_ITS | Encounter Summary ---
:1960 Author Organization [employer] Address [address] [place] [address] Care Team Providers Name Role Phone Unavailable Primary Care Provider Unavailable Reason for Referral Therapies (Routine) - Closed Specialty Diagnoses / Procedures Referred By Contact Refer red To Contact Diagnoses Malignant neoplasm of overlapping sites of left breast in female, estrogen receptor positive (HRC) Marcie Ruiz MD [address] [place] [address] [phone] Referral ID Status Reason Start Date Expiration Date Visits Requ ested Visits Authorized [id number] Closed 09/03/2020 11/02/2020 1 1 Scheduling Instructions This order is your clinician's recommend ation for a service and is not an insurance referral which authorizes payment. The r ecommended service and/or location may not be covered by your insurance plan. Please c all the number on your insurance card to find out your specific benefits and coverage for the recommended services and/or location. If you need help scheduling the recommen ded services, please ask your clinician's staff to assist you. Consult/Transfer Care (Routine) - Closed Specialty Diagnoses / Procedures Referred By Contact Refer red To Contact Diagnoses Malignant neoplasm of overlapping sites of left breast in female, estrogen receptor positive (HRC) Marcie Ruiz MD [address] [place] [phone] Referral ID Status Reason Start Date Expiration Date Visits Requ ested Visits Authorized [id number] Closed 09/03/2020 12/03/2021 1 1 Scheduling Instructions [facility] provider [facility] You may call [phone] to tammy jefferyle your appointment. We suggest you call your health insurance company about your coverage and benefits for this appointment. Encounter Details Date Type Department Care Team Description 09/03/2020 Notes/Orders [facility] [address] [place], Maligna nt neoplasm of Nayely Brattain Breast Roxana Potts RN overla pping sites of Center left breast in female, [address] positive (HRC) [place], [place] (Primar y Dx) [address] Social History Tobacco Use Types Packs/Day Years [...] Oncology Radha Rashid MBBS 39[address] [facility] Aruna BASHIR N [address] (Wo rk) 05/20/2022 Appointment Oncology Radha Rashid MBBS 39[address] [facility] K[place]STEN N [address] (Wo rk) 05/20/2022 Appointment Chemo Therapy/Infusion Services Scheduled Referrals Name Type Priority Associated Diagnoses Order S joleen ONCOLOGY/HEMATOLOGY Referral Routine Malignant neoplasm of Ordered: 09/03/2020 CONSULT ADULT overlapping sites of left breast in female, estrogen receptor positive (HRC) RADIATION THERAPY Referral Routine Malignant neoplasm of O rdered: 09/03/2020 overlapping sites of left breast in female, estrogen receptor positive (HRC) documented as of this encounter Visit Diagnoses Diagnosis Malignant neoplasm of overlapping sites of left breast in female, estrogen receptor positive (HRC) - Primary documented in this encounter
--- OUTSIDE RECORDS SUMMARY | 2022-01-26 21:10 | XMS_ITS | Encounter Summary ---
:1960 Author Organization [facility] Address [address], [place] [address] Care Team Providers Name Role Phone Unavailable Primary Care Provider Unavailable Reason for Visit Reason Comments RESULTS, TEST Encounter Details Date Type Department Care Team Description 09/10/2020 Telephone Critical access hospital Marichuy Cueva CGC RESULTS, TEST Cancer Center Oncology 3931 [facility] [place], [place] 3931 [facility] [address] [place], [place] [address] [phone] Social History Tobacco Use Types Packs/Day Years Used Date Smoking Tobacco: Former Cigarettes 1 1973 - 1988 Alcohol Use Standard Drinks/Week Comments Yes 14 (1 standard drink = 0.6 oz pure alcoh ol) 8-14 drinks/week Sex Assigned at Date Recorded Not on file documented as of this encounter Nursing Notes Marichuy Dunn CGC - 09/10/2020 3:28 PM CDT Genetic Counseling Result Note 09/11/2020 Re: Ayana Donnelly MR#: [id number] Referring provider: Marcie Ruiz MD I spoke with Ayana today over the phone to review genetic testing results performed to look for pathogenic variants/mutations responsible for hereditary cancer. Ayana had a virtual genetic counseling appointment with me on 09/04/20 and we ordered the BRCAPlus and a Custom-Cancer test via [employer]. This testing was ordered because of her personal history of breast cancer and a family history of breast, ovarian and brain cancer. Please see the clinic note from that visit for a complete review of her personal and family history. Genetic Test Results: NEGATIVE (no clinically significant variants detected) No known, identifiable pathogenic variants/mutations were detected in the following genes: ?? BRCAPlus (8 genes):??MARLON, BRCA1, BRCA2, CDH1, CDK4, CHEK2, PALB2,??PTEN, ??and TP53. ?? CustomNext-Cancer (41 genes): a combination of BRCANext-Expanded (MARLON, BARD1, BRCA1, BRCA2, BRIP1, CDH1, CHEK2, DICER1, EPCAM, MLH1, MSH2, MSH6, NBN, Nf1, PALB2, PMS2, PTEN, RAD51C, RAD51D, RECQL, SMARCA4, STK11, TP53) and BrainTumorNext (AIP, ALK, APC, CDKN1B, CDKN2A, DICER1, EPCAM, LZTR1, MEN1, MLH1, MSH2, MSH6, NBN, Nf1, Nf2, PHOX2, BPMS2, POT1, IKIEN5P, PTCH1, PTEN, SMARCA4, SMARCB1, SMARCE1, SUFU, TP53, TSC1, TSC2, and VHL). Interpretation: ?? No mutations, variants of unknown significance or gross deletions or duplications were identified. ?? Low likelihood of mutations in the genes analyzed contributing to this individual's clinical history. ?? Genetic counseling is a recommended option for all individuals undergoing genetic testing. Discussion This test is able to detect the majority of mutations within the genes that were analyzed. We reviewed possible explanations for these negative test results: 1. It is possible that the cancers in the family are caused by shared genetic and environmental riskfactors as part of a familial cancer clustering. 2. It is possible that her relatives did have a mutation in a cancer susceptibility gene and she didnot inherit it. 3. It is possible that this patient carries a mutation in a cancer susceptibility gene that was not detected by this testing. This could occur either if there is an undetectable mutation within the genes tested for, or if there is a mutation within another gene. 4. It is possible that the cancers in this family were caused by random or sporadic factors. Because cancer risk can cluster in families, even in the absence of an identifiable mutation, it will remain important for Ayana and her close relatives to discuss the family history of cancer with their physicians, and to use this information to develop a cancer screening or risk reduction plan. Risk to Relatives: As no identifiable mutation was found for Ayana, she can not pass on an identifiable mutation to deepika for the 41 genes in which she was tested for. Genetic testing is not indicated for her daughter, unless she has a significant paternal family history of cancer. Genetic testing is not indicated for unaffected relatives, but may be appropriate for other family members that have been diagnosed with cancer or are close to those who have had cancer. ??? Her niece with ovarian cancer is encouraged to have genetic counseling and testing as well as her paternal aunt and paternal first cousin who had breast cancer. Additional screening based on family history: ??? Based on family history, breast cancer screening is generally recommended to begin [id number] years younger than the earliest age of breast cancer diagnosis in the family, or at age 40, whichever comes first. In this family, screening may begin at 40 based on Ayana's personal history. The patient's relatives are encouraged to discuss increased breast screening (mammogram + breast MRI) with their physicians. o While her daughter's risk for breast cancer is lower because of her negative test results, Mary may still have a kamttw-etrp-azektmp risk for breast cancer because of the unanswered family history of cancer. Her daughter could complete a breast cancer risk assessment, which is best completed through a primary care provider and/or a breast specialist at a breast center. ??? Those with a first- or second-degree relative diagnosed with ovarian cancer may remain at an elevated empiric risk to develop this cancer based on the family history. Individuals may wish to discuss the option of ovarian cancer screening, such as transvaginal ultrasound and serum CA-125, however, these screenings have limitations and are not considered effective at early ovarian cancer detection. o A discussion of prophylactic bilateral salpingo-oophorectomy (removal of ovaries and fallopian tubes) with their physicians may be considered in instances were there are additional ovarian cancer risk factors (e.g. obesity, hormone replacement therapy, nulliparity). These screening recommendations are based on national guidelines. Final screening recommendations should be deferred to the discretionof the managing physician. ??? Population cancer screening options, such as those recommended by the [place] [employer] and the National Comprehensive Cancer Network (NCCN), are also appropriate for Ayana and her family. These screening recommendations may change if there are changes to Ayana's personal and/or family history of cancer. Final screening recommendations should be made by each individual's managing physician. Plan 1. A copy of the genetic test report will be sent via [employer]. 2. Ayana was encouraged to contact me if there are additional questions or concerns, or if there areany changes in the family history, as this may alter our interpretation of the family history. 3. Because we continue to learn more about the genetics of cancer, Ayana should contact me periodically to inquire if there is any new information that would impact our assessment of the family history. Time spent on the phone: 8 minutes Manda Dunn MS, [facility] Licensed, certified genetic counselor [place] [facility] [phone] documented in this encounter Plan of Treatment Upcoming Encounters Date Type Specialty Care Team Description 02/11/2022 Phone Visit Oncology Radha Rashid MBBS [address] [facility] Aruna BASHIR N [address] (Wo rk) 05/20/2022 Appointment Oncology Radha Rashid MBBS [address] [facility] Aruna BASHIR N [address] (Wo rk) 05/20/2022 Appointment Chemo Therapy/Infusion Services documented as of this encounter Visit Diagnoses Not on filedocumented in this encounter
--- OUTSIDE RECORDS SUMMARY | 2022-01-26 21:10 | XMS_ITS | Encounter Summary ---
:1960 Author Organization [facility] Address [address] [place] [address] Care Team Providers Name Role Phone Unavailable Primary Care Provider Unavailable Reason for Visit Procedure/Equipment (Routine) - Incomplete Specialty Diagnoses / Procedures Referred By Contact Refer red To Contact Procedures Provider, Foreign Images Foreign Image(S) Mammogram 39[address] [place] [address] Referral ID Status Reason Start Date Expiration Date Visits V isits Requested Authorized [id number] Incomplete 08/21/2020 11/20/2021 1 1 Encounter Details Date Type Department Care Team Description 12/14/2010 Ancillary Procedure [facility] Radiology PACS Provider, [address] [place] [address] [address] [place] [address] Social History Tobacco Use Types Packs/Day Years Used Date Smoking Tobacco: Never Assessed Sex Assigned at Date Recorded Not on file documented as of this encounter Plan of Treatment Upcoming Encounters Date Type Specialty Care Team Description 02/11/2022 Phone Visit Oncology Radha Rashid MBBS 3931 [facility] N [address] (Wo rk) 05/20/2022 Appointment Oncology Radha Rashid MBBS 3931 [facility] N [address] (Wo rk) 05/20/2022 Appointment Chemo Therapy/Infusion Services documented as of this encounter Procedures Procedure Name Priority Date/Time Associated Diagnosis Comme nts FOREIGN IMAGE(S) Routine 12/14/2010 2:00 PM Resul ts for this MAMMOGRAM CDT procedure are i n the results section. documented in this encounter Results Foreign Image(S) Mammogram (12/14/2010 2:00 PM CDT) Specimen (Source) Anatomical Location [...]
--- OUTSIDE RECORDS SUMMARY | 2022-01-26 21:10 | XMS_ITS | Encounter Summary ---
:1960 Author Organization [employer] Address [address] [place] [address] Care Team Providers Name Role Phone Unavailable Primary Care Provider Unavailable Reason for Visit Procedure/Equipment (Routine) - Incomplete Specialty Diagnoses / Procedures Referred By Contact Refer red To Contact Diagnoses Malignant neoplasm of overlapping sites of both breasts in female, estrogen receptor positive (HRC) Marcie Ruiz MD Procedures MM Post Mammogram 39[address] [place], [place] [address] Referral ID Status Reason Start Date Expiration Date Visits V isits Requested Authorized [id number] Incomplete 08/27/2020 11/26/2021 1 1 Encounter Details Date Type Department Care Team Description 09/12/2020 Ancillary [facility] 3850 Marcie Ruiz Malig nant neoplasm Procedure Mammography MD of overlapping [address] [place] [address] [facility] es of [address] breasts in female, [facility], [place], [place] [address] positive (HRC) [phone] Social History Tobacco Use Types Packs/Day Years [...] Radha Rashid MBBS [address] Aruna [place]oyle N [address] (Lindsay marcano) 05/20/2022 Appointment Oncology Radha Rashid MBBS [address] [place] N [address] (Lindsay marcano) 05/20/2022 Appointment Chemo Therapy/Infusion Services documented as of this encounter Procedures Procedure Name Priority Date/Time Associated Diagnosis Comme nts MM POST MAMMOGRAM Routine 09/12/2020 8:25 AM Malignant neoplas m Results for this LT CDT of overlapping sites procedu re [...] surgical consu ltation. Marcie Ruiz MD RAD [facility] documented in this encounter Visit Diagnoses Diagnosis Malignant neoplasm of overlapping sites of both breasts in female, estrogen receptor positive (HRC) Malignant neoplasm of overlapping sites of both breasts in female, estrogen receptor positive (HRC) documented in this encounter
--- OUTSIDE RECORDS SUMMARY | 2022-01-26 21:10 | XMS_ITS | Encounter Summary ---
:1960 Author Organization [employer] Address [address] [place] [address] Care Team Providers Name Role Phone Unavailable Primary Care Provider Unavailable Encounter Details Date Type Department Care Team Description 09/04/2020 Lab Visit [facility] genetic [facility] and testing; LAB Malignant neoplasm of overla pping sites of left breast in female, estrogen receptor positive (HRC); 3931 [facility]. Family history of breast can cer; [place], [place] Family history of ovarian cancer; [address] Family history of brain canc er; [phone] Family history of uterine fibroid Social History Tobacco Use Types Packs/Day Years [...] Phone Visit Oncology Radha Rashid MBBS 3931 [facility], N 260546 (Wo rk) 05/20/2022 Appointment Oncology Radha Rashid MBBS 3931 [facility], N [address] (Wo rk) 05/20/2022 Appointment Chemo Therapy/Infusion Services documented as of this encounter Procedures Procedure Name Priority Date/Time Associated Diagnosis Comme nts GENETIC LAB ORDER Routine 09/04/2020 12:34 Encounter for Resul ts for this PM CDT nonprocreative genetic proce dure are in counseling and t esting the results Malignant neoplasm of sectio n. overlapping sites of left breast in female, estrogen receptor positive (HRC) Family history of breast cancer Family history of ovarian cancer Family history of brain cancer Family history of uterine fibroid documented in this encounter Results Miscellaneous Genetic Test (09/04/2020 12:34 PM CDT) athologist Signature Result: See Scanned 09/17/2020 REFERENCE LAB Report 1:55 PM CDT (NON-INTERFACE D) Specimen Anatomical Collection Method / Collection Time Recei eva Time (Source) Location / Volume Laterality Blood Venipuncture / 09/04/2020 12:34 3:16 Unknown PM CDT PM CDT Narrative This result has an attachment that is no t available. Marichuy Dunn [facility] LAB_1 Performing Organization Address City/State/ZIP Code Phon e Number REFERENCE LAB (NON-INTERFACED) REFERENCE LAB (NON-INTERFACED) DO NOT MAIL documented in this encounter Visit Diagnoses Diagnosis Encounter for nonprocreative genetic cou nseling and testing Malignant neoplasm of overlapping sites of left [...]
--- OUTSIDE RECORDS SUMMARY | 2022-01-26 21:10 | XMS_ITS | Encounter Summary ---
:1960 Author Organization [employer] Address [address] [place] [address] Care Team Providers Name Role Phone Unavailable [...] Expiration Date Visits Requ ested Visits Authorized [id number] 1 1 Encounter Details Date Type Department Care Team Description 09/12/2020 Surgery Confucianist Operating Milvia Thorne MD left breast 2 seed Room 3931 [facility] localized lumpectomy [address] [place], [place] [address] node biopsy [id number] [phone] Social History Tobacco Use Types Packs/Day Years Used Date Smoking Tobacco: Former Cigarettes 1 1973 - 1988 Alcohol Use Standard Drinks/Week Comments Yes 14 (1 standard drink = 0.6 oz pure alcoh ol) 8-14 drinks/week Sex Assigned at Date Recorded Not on file documented as of this encounter Last Filed Vital Signs Vital Sign Reading Time Taken Comments Blood Pressure 131/57 09/12/2020 1:50 PM CDT Pulse 72 09/12/2020 1:50 PM CDT Temperature 36.3 ??C (97.3 ??F) 09/12/2020 1:50 PM CDT Respiratory Rate 14 09/12/2020 1:50 PM CDT Oxygen Saturation 94% 09/12/2020 1:50 PM CDT Inhaled Oxygen Concentration - - [...] PM CDT Phase 2 RN Notified per MD alanis for D'C home once pt is able [...] Marcie Thorne MD 09/12/2020 Source Note - ProviderVani MD - 09/09/2020 12:00 AM CDT documented in this encounter Procedure Notes Piedad Taylor PA-C - 09/12/2020 3:32 PM CDT [facility] Brief Operative Progress Note Surgery Date: 09/12/2020 [...] MD 09/12/2020 1238 2 : LEFT Axillary Mallory Lymph Node Tissue Lymph node, sentinel SURGICAL [...] 12:00 AM CDT NAME: AYANA DONNELLY CSN: [id number] OPERATIVE REPORT DATE OF SURGERY: 09/12/2020 : 1960 SURGEON: MARCIE THORNE MD PREOPERATIVE DIAGNOSIS: Breast left breast cancer. POSTOPERATIVE DIAGNOSIS: Breast left breast cancer. PROCEDURE: Left breast 2 seed localized lumpectomy with sentinel lymph node injection mapping and deep axillary lymph node biopsy. ANTIQUE DEALER: Piedad Taylor PA-C. There was no qualified residential insurance inspector available to assist. ODESSA Taylor was needed [...] lymph node, pathology pending. MARCIE THORNE MD [facility]/AQS /[id number] documented in this encounter Plan of Treatment Upcoming Encounters Date Type Specialty Care Team Description 02/11/2022 Phone Visit Oncology Radha Rashid MBBS 3931 [facility] Aruna [place] N [address] (Wo rk) 05/20/2022 Appointment Oncology Radha Rashid MBBS 3931 [facility] [place] BASHIR, Aruna N 203016 (Wo rk) 05/20/2022 Appointment Chemo Therapy/Infusion Services [...] TC99 Injected at [address] Thorne. CA, RN. ECG 12 LEAD INPATIENT Routine 09/12/2020 9:56 AM CDT documented in this encounter Results Surgical Path (09/12/2020 12:38 PM CDT) Component Value Ref Test Analysis Performed At [facility] Range Method Time Signature Case Report Surgical Pathology ?Case: [id number] ? 09/15/2020 [facility] Authorizing Provider: ??Marcie Duarte MD ?Collected: ? [...] - Lymp h node, sentinel, LEFT Axillary Mallory Lymph Node ? C) - [facility], left, LEFT Breast additional posterior margin for medial aspect. single ? superior double posterior ? D) - [facility], left, LEFT Breast additional anterior margin for medial aspect. single ? superior double anterior ? FINAL DIAGNOSIS A. Breast, left breast, 2 se ed localized lumpectomy from 3 o'clock position of breast: 09/15/2020 [facility] Electronically Invasive ductal carcinoma, grade 2, 2 [...] BREAST: COMPLETE EXCISION - All Specimens) 09/15/2020 [facility] 3:10 PM LABORATORY 8th Edition - Protocol [...] Lymph Nodes Examined: ?1 ?? Number of Mallory Nodes Examined: ?1 PATHOLOGIC STAGE CLASSIFICATION (pTNM, AJCC 8th Edition) ?? TNM Descriptors: ?m (multiple foci of invasive carcinom a) Primary Tumor (pT): ?pT1c Regional Lymph Nodes Modifier: ?(sn): Mallory node(s) evaluated. Regional Lymph Nodes (pN): ?pN0 Comment(s) Comment(s): ?The patien t's outside needle core biopsy is not available for review Clinical Malignant 09/15/2020 [facility] Information neoplasm of 3:10 PM LABORATORY overlapping CDT sites of both breasts in female, estrogen receptor positive (HRC) Microscopic Microscopic 09/15/2020 [facility] Description examination is 3:10 PM LABORATORY performed. CDT Special Stains The stain controls have been reviewed and stain appr opriately. 09/15/2020 [facility] 3:10 PM LABORATORY CDT Gross A: 09/15/2020 [facility] Description The specimen is received malvin for [...] The seed is removed and sent to [facility], per protoco l. Due to the shape of the biopsy [...] er of the specimen are grossly unremarkable. Pediatrics Teacher sections are submitted in formalin at 1:20 [...] with poste rior and superior margins; A13 guest experience representative inferior margin; A14 guest experience representative lateral margin. AW B: The specimen is received in formalin and labeled with the patient's name and Lymph node, sentinel, LEFT Axillary Mallory Lymph Node. The specimen consists of 3.5 [...] In formalin at 1:02 PM, 09/12/2020, per [facility]. AW D: The specimen is received [...] In formalin at 1:08 PM, 021, per [facility]. AW Intraoperative A: 09/15/2020 [facility] Consultation Gross Intraoperative Diagnos is: Left breast lumpectomy -- 2 tumors located and 1 small induration superior; not definite tumor. Larger nodule has margins free (greater than 5 mm). Smaller nodule close 3:10 PM LABORATORY to anterior margin at medial end. Posterior margin probably okay, but also close. (Result called into OR 17 by RWS at 1:05 PM, 09/12/2020) CDT Embedded Images 09/15/2020 [facility] 3:10 PM LABORATORY CDT Specimen Anatomical Collection [...] Organization Address City/State/ZIP Code Phon e Number [facility] [address] [place] [address] Oncotype Dx Breast Recurrence Score (09/12/2020 12:02 PM CDT) [facility] gist Method Time Signature Oncotype Dx See Scanned 10/10/2020 [facility] Breast Report 2:21 PM CDT EMERY KENNEDY [employer] Score Specimen Anatomical Collection Method Collection Time Receive d Time (Source) Location / / Volume Laterality Tissue Non-blood 09/12/2020 12:02 10/03/2020 Collection / PM CDT 12:02 PM CDT Unknown Narrative This result has an attachment that is no t available. [facility]_1 Performing Organization Address City/State/ZIP Code Phon e Number [facility] AT WORK EMERY KENNEDY [address] [facility] [address] [place], [place] [address] [facility] 119 ECG 12 Lead Inpatient (09/12/2020 9:56 AM CDT) P athologist Signature Ventricular Rate 73 BPM [facility]USE [facility] Atrial Rate 73 BPM [facility] P-R Interval 144 ms [facility] QRS Duration 86 ms [facility] QT 414 ms [facility] QTc 456 ms [facility] P [place] 28 degrees MUSE [facility] R [place] 8 degrees MUSE [facility] T [place] 42 degrees MUSE [facility] Specimen (Source) Anatomical Collection Method Collection Time Re ceived Time Location / / Volume Laterality 09/12/2020 9:56 AM CDT Narrative [facility]USE [facility] - 09/12/2020 10:16 AM CDT Sinus rhythm Normal ECG No previous ECGs available Confirmed by ALLYSON MOSHER ([id number]) on 02/2021 10:16:08 AM Procedure Note Allyson Mosher MD - 09/12/2020 Sinus rhythm Normal ECG No previous ECGs available Confirmed by ALLYSON MOSHER ([id number]) on 02/2021 10:16:08 AM Marcie Thorne MD PN ECG ORDERABLES Performing Organization Address City/State/ZIP Code Phon e Number MUSE [facility] [address] [place] [address] documented in this encounter Visit Diagnoses Diagnosis [...] 40 mL Other (Comment) (SENSORCAINE) 0.25% CDT -1:[id number] injection ONCE PRN, Starting on Tue09/12/20 at 1255, Until Tue09/12/20 at 1807, Intra-op fentaNYL (SUBLIMAZE) injection 25-50 mcg 25-50 mcg, Intravenous, [id number], Pain, Procedure, Starting on Tue09/12/20 at 1027, Until Tue09/12/20 at 1807, For 2 doses, As directed by anesthesiologist, Pre-op fentaNYL (SUBLIMAZE) injection 25-50 mcg 25-50 mcg, Intravenous, [id number], Other, Moderate to Severe Pain (pain score [...] (VERSED) injection 1-2 mg 1-2 mg, Intravenous, [id number], Sedation, Anxiety, Proc edure, Starting on Tue09/12/20 [...] Order 09/10/2020 09/11/2020 09/12/2020 bupivacaine-epinephrine (SENSORCAINE) 0.25% -1:806301 injection 1255 (Given - Provider: Marcie Thorne MD - Comment: LEFT breast and axila) ONCE PRN, Starting on Tue09/12/20 at 1255, Intra-op fentaNYL (SUBLIMAZE) injection 25-50 mcg 25-50 mcg, Intravenous, [id number], Pain, Procedure, Starting on Tue09/12/20 at 1027, For 2 doses, As directed by anesthesiologist, Pre-op fentaNYL (SUBLIMAZE) injection 25-50 mcg 25-50 mcg, Intravenous, [id number], Other, Moderate to Severe Pain (pain score [...] (VERSED) injection 1-2 mg 1-2 mg, Intravenous, [id number], Sedation, Anxiety, Procedure, Starting on Tue09/12/20 at [...]
--- OUTSIDE RECORDS SUMMARY | 2022-01-26 21:10 | XMS_ITS | Encounter Summary ---
:1960 Author Organization [employer] Address [address] [place] [address] Care Team Providers Name Role Phone Mai Tiwari PA-C Primary Care Provider Reason for Visit Reason Onset Date Comments Nurse Education 08/27/2020 Encounter Details Date Type Department Care Team Description 08/27/2020 Telephone [place] [address] Maty Hardwick Nurse Education [facility] Delroy, RN [address] [place] [address] Social History Tobacco Use Types Packs/Day Years Used Date Smoking Tobacco: Former Cigarettes 1 1973 - 1988 Alcohol Use Standard Drinks/Week Comments Yes 14 (1 standard drink = 0.6 oz pure alcoh ol) 8-14 drinks/week Sex Assigned at Date Recorded Not on file documented as of this encounter Nursing Notes Roxana Bañuelos, RN - 08/27/2020 1:40 PM CDT Nurse met with patient and her friend, Brian, in conjunction with general surgery consult to provide more information about recent breast cancer diagnosis and treatment options. Reviewed results. Discussed breast imaging reports. Reviewed tumor size and axillary status. Discussed pathology report. Provided patient with copy of results. Reviewed clinical stage with patient. Explained final stage is not determined until after surgery. Discussed treatments. Reviewed surgery options. Utilized Breast Cancer Surgery Options handout (68390) and Your Care Guide for Breast Cancer Surgery booklet (06852). Patient is primarily interestedin a lumpectomy. Discussed purpose of radioactive seed localization and sentinel lymph node biopsy. Explained how additional treatments could include adjuvant radiation and endocrine therapy. ExplainedOncotype testing might be recommended by medical oncologist to determine need for chemotherapy. Reviewed [facility] new patient packet, which includes care team contact information, Krysten Mccall classes / support groups, and community resources. Patient was encouraged to call with questions or concerns going forward. Patient verbalized understanding of conversation. Will continue to follow case and assist with coordination of care. Scheduling Genetic Counseling: Patient meets criteria for genetic testing. She would likely use results to guide her surgical decision. She chose to schedule an urgent consult on 09/04. Medical Oncology: Explained purpose of meeting with a medical oncologist following surgery to discuss adjuvant treatments. Will help arrange consult once surgery date is known. She would like this downin [place] Radiation Oncology: Patient would like to have this down in [place]. documented in this encounter Plan of Treatment Upcoming Encounters Date Type Specialty Care Team Description 02/11/2022 Phone Visit Oncology Radha Rashid MBBS 3931 [facility] [place] N [address] (Wo rk) 05/20/2022 Appointment Oncology Radha Rashid MBBS [address] [facility], N [address] (Wo rk) 05/20/2022 Appointment Chemo Therapy/Infusion Services documented as of this encounter Visit Diagnoses Not on filedocumented in this encounter Care Teams [employer] Team Member Relationship Specialty Start Date End Date Mai Tiwari PA-C PCP - General Physician Recruiting Specialist 09/23/[address] [place] [address] documented as of this encounter
--- OUTSIDE RECORDS SUMMARY | 2022-01-26 21:10 | XMS_ITS | Encounter Summary ---
:1960 Author Organization [facility] Address [address] [place] [address] Care Team Providers Name Role Phone Unavailable Primary Care Provider Unavailable Reason for Visit Procedure/Equipment (Routine) - Incomplete Specialty Diagnoses / Procedures Referred By Contact Refer red To Contact Procedures Provider, Foreign Images Foreign Image(S) Mammogram 3930 [place] [address] Referral ID Status Reason Start Date Expiration Date Visits V isits Requested Authorized [id number] Incomplete 08/21/2020 11/20/2021 1 1 Encounter Details Date Type Department Care Team Description 02/12/2016 Ancillary Procedure [facility]iology PACS Provider, [address] [place] [address] [address] [place] [address] Social History Tobacco Use Types Packs/Day Years Used Date Smoking Tobacco: Never Assessed Sex Assigned at Date Recorded Not on file documented as of this encounter Plan of Treatment Upcoming Encounters Date Type Specialty Care Team Description 02/11/2022 Phone Visit Oncology Radha Rashid MBBS 3931 [facility] N [address] (Wo rk) 05/20/2022 Appointment Oncology Radha Rashid MBBS 39[address] [facility] N [address] (Wo rk) 05/20/2022 Appointment Chemo Therapy/Infusion Services documented as of this encounter Procedures Procedure Name Priority Date/Time Associated Diagnosis Comme nts FOREIGN IMAGE(S) Routine 02/12/2016 2:00 PM Resul ts for this MAMMOGRAM FORM RAISER procedure are i n the results section. documented in this encounter Results Foreign Image(S) Mammogram (02/12/2016 2:00 PM FORM RAISER) Specimen (Source) Anatomical Location Collection Method / [...]
--- OUTSIDE RECORDS SUMMARY | 2022-01-26 21:10 | XMS_ITS | Encounter Summary ---
:1960 Author Organization [facility] Address [address] [place] [address] Care Team Providers Name Role Phone Unavailable Primary Care Provider Unavailable Reason for Visit Procedure/Equipment (Routine) - Incomplete Specialty Diagnoses / Procedures Referred By Contact Refer red To Contact Procedures Provider, Foreign Images Foreign Image(S) Mammogram [address] [place] [address] Referral ID Status Reason Start Date Expiration Date Visits V isits Requested Authorized [id number] Incomplete 08/21/2020 11/20/2021 1 1 Encounter Details Date Type Department Care Team Description 01/06/2012 Ancillary Procedure [facility] Radiology PACS Provider, [address] [place] [id number] 39[address] [place] [address] Social History Tobacco Use Types Packs/Day Years Used Date Smoking Tobacco: Never Assessed Sex Assigned at Date Recorded Not on file documented as of this encounter Plan of Treatment Upcoming Encounters Date Type Specialty Care Team Description 02/11/2022 Phone Visit Oncology Radha Rsahid MBBS 3931 [facility] N [address] (Wo rk) 05/20/2022 Appointment Oncology Radha Rashid MBBS 3931 [facility] N [address] (Wo rk) 05/20/2022 Appointment Chemo Therapy/Infusion Services documented as of this encounter Procedures Procedure Name Priority Date/Time Associated Diagnosis Comme nts FOREIGN IMAGE(S) Routine 01/06/2012 2:00 PM Resul ts for this MAMMOGRAM CDT procedure are i n the results section. documented in this encounter Results Foreign Image(S) Mammogram (01/06/2012 2:00 PM CDT) Specimen (Source) Anatomical Location [...]
--- OUTSIDE RECORDS SUMMARY | 2022-01-26 21:10 | XMS_ITS | Encounter Summary ---
:1960 Author Organization [facility] Address [address] [place] [address] Care Team Providers Name Role Phone Unavailable Primary Care Provider Unavailable Reason for Visit Procedure/Equipment (Routine) - Incomplete Specialty Diagnoses / Procedures Referred By Contact Refer red To Contact Procedures Provider, Foreign Images Foreign Image(S) Mammogram [address] [place] [address] Referral ID Status Reason Start Date Expiration Date Visits V isits Requested Authorized [id number] Incomplete 08/21/2020 11/20/2021 1 1 Encounter Details Date Type Department Care Team Description 06/23/2017 Ancillary Procedure [facility] Radiology PACS Provider, [address] [place] [address] 39[address] [place] [address] Social History Tobacco Use Types Packs/Day Years Used Date Smoking Tobacco: Never Assessed Sex Assigned at Date Recorded Not on file documented as of this encounter Plan of Treatment Upcoming Encounters Date Type Specialty Care Team Description 02/11/2022 Phone Visit Oncology Radha Rashid MBBS 3931 [facility] N [address] (Wo rk) 05/20/2022 Appointment Oncology Radha Rashid MBBS 39[address] [facility] N [address] (Wo rk) 05/20/2022 Appointment Chemo Therapy/Infusion Services documented as of this encounter Procedures Procedure Name Priority Date/Time Associated Diagnosis Comme nts FOREIGN IMAGE(S) Routine 06/23/2017 2:00 PM Resul ts for this MAMMOGRAM CDT procedure are i n the results section. documented in this encounter Results Foreign Image(S) Mammogram (06/23/2017 2:00 PM CDT) Specimen (Source) Anatomical Location [...]
--- OUTSIDE RECORDS SUMMARY | 2022-01-26 21:10 | XMS_ITS | Encounter Summary ---
:1960 Author Organization [facility] Address [address] [place] [address] Care Team Providers Name Role Phone Unavailable Primary Care Provider Unavailable Encounter Details Date Type Department Care Team Description 04/04/1989 PN Conversion Only SALES PROMOTION REPRESENTATIVE [address] [place] [address] Social History Tobacco Use Types Packs/Day Years Used Date Smoking Tobacco: Never Assessed Sex Assigned at Date Recorded Not on file documented as of this encounter Plan of Treatment Upcoming Encounters Date Type Specialty Care Team Description 02/11/2022 Phone Visit Oncology Radha Rashid MBBS 3931 [facility], N [address] (Wo rk) 05/20/2022 Appointment Oncology Radha Rashid MBBS 3931 [facility], N [address] (Wo rk) 05/20/2022 Appointment Chemo Therapy/Infusion Services documented as of this encounter Visit Diagnoses Not on filedocumented in this encounter
--- OUTSIDE RECORDS SUMMARY | 2022-01-26 21:10 | XMS_ITS | Encounter Summary ---
:1960 Author Organization [facility] Address [address] [place] [address] Care Team Providers Name Role Phone Unavailable Primary Care Provider Unavailable Reason for Visit Procedure/Equipment (Routine) - Incomplete Specialty Diagnoses / Procedures Referred By Contact Refer red To Contact Procedures Provider, Foreign Images Foreign Image(S) Mammogram [address] [place] [address] Referral ID Status Reason Start Date Expiration Date Visits V isits Requested Authorized [id number] Incomplete 08/21/2020 11/20/2021 1 1 Encounter Details Date Type Department Care Team Description 08/14/2020 Ancillary Procedure [facility] Radiology PACS Provider, [address] [place] [id number] [place] [address] Social History Tobacco Use Types Packs/Day Years Used Date Smoking Tobacco: Never Assessed Sex Assigned at Date Recorded Not on file documented as of this encounter Plan of Treatment Upcoming Encounters Date Type Specialty Care Team Description 02/11/2022 Phone Visit Oncology Radha Rashid MBBS 3931 [facility] N [address] (Wo rk) 05/20/2022 Appointment Oncology Radha Rashid MBBS 39[address] [facility] N [address] (Wo rk) 05/20/2022 Appointment Chemo Therapy/Infusion Services documented as of this encounter Procedures Procedure Name Priority Date/Time Associated Diagnosis Comme nts FOREIGN IMAGE(S) Routine 08/14/2020 2:15 PM Resul ts for this MAMMOGRAM CDT procedure are i n the results section. documented in this encounter Results Foreign Image(S) Mammogram (08/14/2020 2:15 PM CDT) Specimen (Source) Anatomical Location Collection [...]
[2022-01-26 21:18] LABS: RBC Urine 0-2 (0-2); Squamous Epithelial Cell Urine Few (None-Few)
== END 2022-01-26 21:14 | disposition home or self-care (01) ==
PROVIDERS: Emergency Provider Internal Medicine
DX: J01.00 Acute maxillary sinusitis, unspecified (principal)
CPT/HCPCS: 81003; 81015; 99283; 99284